=== PATIENT | female | born 1965 | race Caucasian/White ===

== ENCOUNTER 2016-09-27 16:47 | Inpatient (IN) | payer OTHER ==
[2016-09-27] VITALS (12 sets, daily range): BP systolic 69–96; BP diastolic 30–55; PULSE 64–117; RESP 18–28; O2SAT 90–98
[~2016-09-27] VITALS: Ht 154.9 cm; Wt 93.7 kg
[~2016-09-27 16:47] MED LIST: CHOL-4 PO; FURO-129 PO; GABA-502 PO; GLPZ5T PO; MAGN400T23 PO; METF500T4 PO; METO25TA6 PO; MORP-32 PO; OXYC1TAB24 PO; POTA20TA16 PO; SPIR25TA3 PO; VENL37.53 PO
--- NOTE | 2016-09-27 17:01 | ED.REPORT ---
HPI-General Illness Date of Service Sep 27, 2016 ED Provider: Rell Chow MD Pt is a 51 year old female currently being treated with chemotherapy for lung cancer who was sent to the ED from with concerns for an altered mental status and shortness of breath that started earlier today. Her reports that she has been having a productive cough for the past week as well as some rhinorrhea, which has been gradually worsening since its onset. Yesterday, she became excessively weak, confused and began having full body spasms. A pleural effusion was diagnosed while she was at the facility, which prompted her ED visit. She has become increasingly confused, and had one bout of emesis. Pt's denies any fevers, and reports that she did not receive a flu shot this season. Pt additionally has a previous history of breast cancer, treated with a partial mastectomy, and endometrial cancer, treated with a full hysterectomy. Nursing Notes Stated Complaint: COUGH/LOW OXYGEN Chief Complaint: Respiratory Complaints Nursing Notes Reviewed: Yes Allergies: Coded Allergies: No Known Allergies (Verified Allergy, Unknown, 09/27/16) Scheduled Cholecalciferol (Vitamin D3) (Vitamin D3) 10,000 Unit Capsule 5,000 UNIT PO WEEKLY Every Monday Furosemide (Lasix) 20 Mg Tablet 20 MG PO DAILY Gabapentin (Gabapentin) 300 Mg Capsule 300 MG PO TID 1 AM 1 NOON 2 PM Glipizide (Glipizide) 5 Mg Tablet 10 MG PO BID Magnesium Oxide (Mag-Oxide) 400 Mg Tablet 400 MG PO TID Metformin (Metformin) 500 Mg Tablet 500 MG PO TID Metoprolol Tartrate (Metoprolol Tartrate) 25 Mg Tablet 50 MG PO BID Morphine Sulfate ER (Morphine Sulfate ER) 15 Mg Tablet 15 MG PO BID Spironolactone (Spironolactone) 25 Mg Tablet 25 MG PO DAILY Venlafaxine ER (Effexor XR) 37.5 Mg Cap.er.24h 37.5 MG PO DAILY Scheduled PRN oxyCODONE-Acetaminophen 5-325 mg (oxyCODONE-Acetaminophen 5-325 mg) 1 Each Tablet 1 TAB PO Q4H PRN PRN For Pain General Time Seen by MD: 16:57 Chief Complaint Breathing problem Hx Obtained From: Patient, Spouse Arrived By: Walk-in Sudden in Onset?: Yes Onset Occurred: 1 week ago Symptom Duration: Since onset Similar Sx Previous: Yes Past Medical History Past Medical History type 2 diabetes and compensated cirrhosis of the liver, history of right-sided breast cancer in 2013 and recent diagnosis of metastatic high-grade endometrioid adenocarcinoma of uterus. She underwent cytoreductive surgery in October 2015 at [facility], and shortly afterwards in November 2015 she was diagnosed with recurrent/metastatic disease in para-aortic and aortocaval lymph nodes, left iliac chain lymph nodes, and new liver metastases. Past Surgical History LT BREAST BX X2,RT BR BX/LUMPECTOMY, breast reconstruction, FIBROID EXC.,HYST W/ DEBULKING ENDOMET Smoking History Never Smoker Ambulatory Status Independent Review of Systems Unable to Obtain ROS Patient condition Full Review of Systems Constitutional: Reports: Weakness - generalized, Denies: Chills, Fever, Malaise Respiratory: Reports: Non-productive cough, Prod cough, clear, Shortness of breath, Denies: Wheezing Cardiovascular: Denies: Syncope GI: Reports: Nausea, Vomiting, Denies: Diarrhea Female: Denies: Urinary frequency, Urinary urgency Skin: Denies Diaphoresis Neurologic: Reports: Confusion Complete sys rev & neg: except as marked. Physical Exam Vital Signs Vital Signs Date Time Temp Pulse Resp B/P Pulse Ox O2 Delivery O2 Flow Rate FiO2 09/27/16 19:39 77 19 77/30 97 09/27/16 19:33 64 24 98 Nasal Cannula 4 09/27/16 18:40 69 24 96/50 98 Nasal Cannula 3 09/27/16 16:52 35.9 117 28 71/54 90 Room Air Initial VS: Reviewed Head / Eyes: Atraumatic, Normocephalic, PERRL Neck: Supple, Non-tender, Full range of motion Cardiovascular: Regular rate & rhythm, Heart sounds normal, Intact distal pulses Abdomen / GI: Soft, Non-tender, No guarding, No rebound, No distention Skin: Warm, Dry, No cyanosis General/Constitutional: Awake, Alert Appearance / Presentation: Positive: Pale Port appears appropriate, no erythema or swelling present Appears altered Mumbling Follows commands Opens eyes spontaneously Respiratory / Chest: Atraumatic, No respiratory distress Corase breath sounds bilaterally Interpretation & Diagnostics Lab Results Interpretation Result Diagram: 09/27/16 1715 09/27/16 1715 Test 09/27/16 17:15 09/27/16 17:28 09/27/16 18:47 White Blood Count 15.1th/mm3 (3.8-10.1) Red Blood Count 3.86mil/mm3 (3.90-5.20) Hemoglobin 9.9g/dL (12.0-15.6) Hematocrit 31.5% (35.0-46.0) Mean Corpuscular Volume 81.6fL (81-100) Mean Corpuscular Hemoglobin 25.6pg (27.0-35.0) Mean Corpuscular Hemoglobin Concent 31.4% (32.0-37.0) Red Cell Distribution Width 17.0% (12.3-15.4) Platelet Count 252bil/L (150-400) Neutrophils (%) (Auto) 74% (40-74) Lymphocytes (%) (Auto) 6% (14-46) Monocytes (%) (Auto) 10% (4-12) Eosinophils (%) (Auto) 0% (0-5) Basophils (%) (Auto) 1% (0-3) Band Neutrophils % 7% (1-5) Metamyelocytes % 0% (0-0) Myelocytes % 2% (0-0) Sodium Level 129mEq/L (134-144) Potassium Level 3.3mEq/L (3.5-5.2) Chloride Level 88mEq/L (97-108) Carbon Dioxide Level 16mmol/L (18-29) Blood Urea Nitrogen 34mg/dL (6-24) Creatinine 1.62mg/dL (0.57-1.00) Estimat Glomerular Filtration Rate 48mL/min (>59) Glucose Level 378mg/dL (60-99) Lactic Acid Level 6.3mmol/L (0.4-2.0) Calcium Level 9.6mg/dL (8.5-10.1) Total Bilirubin 0.5mg/dL (0.0-1.2) Aspartate Amino Transf (AST/SGOT) 10U/L (0-50) Alanine Aminotransferase (ALT/SGPT) 8U/L (0-32) Alkaline Phosphatase 92U/L (25-150) Troponin T < 0.010ug/L (0.0-0.011) Pro-B-Type Natriuretic Peptide 1534pg/mL (0-249) Total Protein 7.4g/dL (6.4-8.4) Albumin 2.8g/dL (3.4-5.0) Prothrombin Time 13.4sec (8.1-12.5) Prothromb Time International Ratio 1.25ratio Activated Partial Thromboplast Time 35.5sec (22.8-33.0) D-Dimer 3.7mg/L (<0.50) Hold [place] Top Tube Received (Received) Urine Color Yellow (YELLOW) Urine Appearance Cloudy (CLEAR,HAZY) Urine pH 5.0 (5.0-8.0) Urine Specific Valentine 1.025 (1.003-1.035) Urine Protein Tracemg/dL (NEG,TRACE) Urine Glucose (UA) 250mg/dL (NEGATIVE) Urine Ketones Negativemg/dL (NEGATIVE) Urine Occult Blood Trace (NEGATIVE) Urine Nitrite Negative (NEGATIVE) Urine Bilirubin Negative (NEGATIVE) Urine Urobilinogen Normalmg/dL (NORMAL) Urine Leukocyte Esterase Negative (NEGATIVE) Urine RBC 3-10/hpf (0-2) Urine WBC 11-50/hpf (0-5) Urine Epithelial Cells Moderate/hpf (NONE-MOD) Urine Crystals Amorphous urates (NONE Urine Bacteria Moderate/hpf (NONE-FEW) Urine Hyaline Casts Rare/lpf (NONE) Urine Granular Casts None seen (NONE SEEN) Urine Waxy Casts None seen (NONE SEEN) Urine Red Blood Cell Casts None seen (NONE SEEN) Urine White Blood Cell Casts None seen (NONE SEEN) Urine Mucus Present (None Seen) Urine Trichomonas None seen (NONE SEEN) Urine Yeast None (NONE SEEN) Urinalysis Comment None Urine Culture Reflexed Indicated Lab Results Interpretation: Blood Gas Report: pH: 7.315 pCO2: 32 pO2: 68.7 pHCO3-: 15.9 cBase: -8.9 ECG Interpretation ECG Interpretation: SR - [address] segment changes Time: 17:23 X-Ray Chest Interpretation Chest Xray Interpretation: IMPRESSION: 1. Left mid lung and lower lobe, as well as right lower lobe pneumonia. 2. Suspect a hydropneumothorax in the left upper thorax, possibly related to empyema. Recommend clinical correlation. Dictated by: Dana Bird M.D. on 09/27/2016 at 18:57 Interpretation / Wet Read by: Interpret - Radiologist CT Head Interpretation IMPRESSION: No acute intracranial abnormality. Dictated by: Dana Bird M.D. on 09/27/2016 at 18:06 Interpretation / Wet Read by: Interpret - Radiologist Re-Eval/Medical Decision Med Decision/Clinical Course 51-year-old female history of uterine cancer status post radical hysterectomy with lung metastases on chemotherapy and history of breast cancer status post resection presenting with shortness of breath 2 weeks. On arrival she was satting in the high 80s and was altered. Lactate is 6.3. D-dimer is elevated at 3.[address] angiogram chest for PE one month ago. Sodium is low. Potassium is low. White blood cell count is 15,000 which is up from 5000 recently. Urine suggests UTI. Blood pressures with MAPs 60s. Patient will be admitted to [facility] for probable healthcare associated pneumonia with dose of Levaquin, Zosyn, vancomycin given prior to transfer. Blood culture sent. Patient is full code. Source of Hx: Old records Time of Eval: 17:42 Re-Evaluation/Progress Note: With oxygen administered, pt now has a GCS of 15. PERRL. Time of Eval: 18:40 Re-Evaluation/Progress Note: Pt is increasingly alert Consultation : Referral / Consult Name: Erasmo Mahajan MD Consulted With: Hospitalist Call Returned at: 19:23 Nuclear Medicine Officer: Will see patient, Agrees with plan, Accepts admit Counseled Regarding: Diagnosis, Lab results, Need for admission Discharge & Departure Primary Impression: Shortness of breath Additional Impressions: Healthcare-associated pneumonia UTI (urinary tract infection) Urinary tract infection type: site unspecified Hematuria presence: without hematuria Qualified Code: N39.0 - Urinary tract infection, site not specified Disposition: ADMITTED TO HOSPITAL Discharge Condition All VS Reviewed: Yes Condition: Stable Referrals: Rochelle Skelton (PCP) Dilciaibwellington Attestation Portions of this note were transcribed by Idalia Bobby. I, Dr. Chow personally performed the history, physical exam and medical decision-making; I reviewed and confirmed the accuracy of the information in the transcribed note. Signed by: Shannan Corrales, 09/27/2016 [id number] copies to: Rochelle Skelton Ben M MD Sep 27, 2016 17:01 CHARLY BOBBY Sep 27, 2016 17:12
[2016-09-27] MEDS ORDERED: 0.9% Sodium Chloride 1,000 ML IV ONE ×2 (17:09→17:55)
[2016-09-27] MEDS ORDERED: Albuterol 2.5 mg/3 mL Inhalation Solution NEB ONE (17:10)
--- NOTE | 2016-09-27 17:16 | ABG ---
DateTimeAnalyzed 17:12:00 -_ pH ____7.315 - 7.350 7.450 pCO2 ___32.2__ -mmHg 35.0 45.0 pO2 ___68.7__ -mmHg 69.0 116 HCO3- ___15.9__ -mmol/L 22.0 26.0 ABE ___-8.9__ -mmol/L -2.0 2.0 tHb ___10.2__ -g/dL O2Hb ___90.6__ -% COHb ____1.7__ -% MetHb ____0.7__ -% sO2 ___92.8__ -% FIO2 ___26.0__ -% Drawn By JJ - Date/Time Notified____ 17:16:00 -_ Liter_Flow ____2.0__ -L/min Oxygen Device 1 __CANNULA - Notified By JJ - Notified Whom DR CASSI-CANSECO -____ B 765 -mmHg tO2 ___13.1__ -Vol% Chavo test _Positive -
[2016-09-27 17:30] LABS: Mean Corpuscular Hemoglobin 25.6 pg (27.0-35.0); Mean Corpuscular Volume 81.6 fL (81-100); Platelet Count 252 bil/L (150-400)
--- NOTE | 2016-09-27 18:08 | DRSVH ---
PROCEDURE: CT BRAIN WITHOUT CONTRAST ([id number]) INDICATIONS: altered mental status TECHNIQUE: Noncontrast 4.5 mm thick angled axial sections acquired from the foramen magnum to the vertex, with c oronal reformats. COMPARISON: None. FINDINGS: Image quality: Excellent. CSF spaces: Basal cisterns are patent. No extra-axial fluid collections. Ventricles are normal in size and shape. Brain: No midline shift. No intracranial masses or hemorrhage. Alcazar-white matter interface is norm al. Skull and face: Calvarium and visualized facial bones are intact, without suspicious lesions. Sinuses: Visualized sinuses and mastoids are clear. IMPRESSION: No acute intracranial abnormality. Dictated by: Dana Bird M.D. on 09/27/2016 at 18:06 Approved by: Dana Bird M.D. on 09/27/2016 at 18:06
[2016-09-27 18:12] LABS: TROPONIN T < 0.010 ug/L (0.0-0.011)
[2016-09-27 18:15] LABS: D-DIMER 3.7 mg/L (<0.50); INR 1.25 ratio
--- NOTE | 2016-09-27 18:59 | DRSVH ---
PROCEDURE: X-RAY CHEST ONE VIEW, PORTABLE ([id number]) INDICATIONS: dyspnea TECHNIQUE: One view of the chest was acquired. COMPARISON: [facility], CT, CT ABD PELVIS W CON, 08/28/2016, 10:13. [facility], CR, CHEST 2VW, 09/27/2016, 4:49 PM. [facility], CR, XR CHEST 1VW (PORTABLE), 08/28/2016, 18: 49. FINDINGS: Surgical changes and devices: There is a Port-A-Cath on the right with the tip crossing midline to th e left but unchanged in position. Lungs and pleura: There is a small moderate left pleural effusion. There is a lucency in the left upp er thorax, probably a hydropneumothorax. There is infiltrate and consolidation in left mid lung and l ower lobe, as well as right lower lobe consistent with pneumonia. Pulmonary vascularity is increased. Mediastinum: Mediastinal contours appear normal. Heart size is normal. Bones and chest wall: No suspicious bony lesions. Overlying soft tissues appear unremarkable. IMPRESSION: 1. Left mid lung and lower lobe, as well as right lower lobe pneumonia. 2. Suspect a hydropneumothorax in the left upper thorax, possibly related to empyema. Recommend clini tyree correlation. Dictated by: Dana Bird M.D. on 09/27/2016 at 18:57 Approved by: Dana Bird M.D. on 09/27/2016 at 18:57
[2016-09-27] MEDS ORDERED: Vancomycin Dose per Pharmacist XX ONE (19:00)
[2016-09-27] MEDS ORDERED: Piperacillin-Tazo 3.375 Gm Inj 3.375 GM in Dextrose 5% Minibag Plus 50 ML IV ONE (19:00)
[2016-09-27] MEDS ORDERED: levoFLOXacin Inj 750 MG in IV Premix 1 EACH IV ONE (19:00)
[2016-09-27] MEDS ORDERED: Alum-Mag Hydrox-Simeth 30 mL Suspension PO PRN (19:05)
--- NOTE | 2016-09-27 19:05 | PCM.HPMED ---
Subjective Date of Service Sep 27, 2016 Primary Provider: Admitting Physician: Primary Care Physician: Rochelle Skelton Attending Physician: Chief Complaint: Altered mental status and shortness of breath History of Present Illness: Pt is a 51 year old female currently being treated with chemotherapy for lung cancer who was sent to the ED from with concerns for an altered mental status and shortness of breath that started earlier today. Her reports that she has been having a productive cough for the past week as well as some rhinorrhea, which has been gradually worsening since its onset. Yesterday, she became excessively weak, confused and began having full body spasms. A pleural effusion was diagnosed while she was at the facility, which prompted her ED visit. She has become increasingly confused, and had one bout of emesis. Pt's denies any fevers, and reports that she did not receive a flu shot this season. Review of Systems: Gen.: No fevers chills weight loss weight gain, generalized malaise Eyes: no visual disturbances or blurring vision HEENT: No nose/throat drainage, no pain in ears or throat, no hearing loss Lymph: No lymph nodes noted Cardiac: No chest pain, orthopnea, PND, palpitations , pedal edema or dyspnea on exertion Pulmonary: , severe cough, some dyspnea and wheezing and sputum GI: No nausea vomiting blood or black in the stool, anorexia : no dysuria hematuria urinary frequency or decrease in urine output Musculoskeletal: Joint swelling no joint pain no new muscle aches or back pain Neuro: No syncope, seizures no loss of consciousness no new focal weakness, numbness or tingling Psychiatric: New new anxiety insomnia or depression Endocrine: No new heat or cold intolerances polyuria or polydipsia Hematology: No lymphadenopathy or easy bleeding or bruising noted skin: No new rashes, stasis dermatitis Allergies Coded Allergies: No Known Allergies (Verified Allergy, Unknown, 09/27/16) Home Medications Scheduled Cholecalciferol (Vitamin D3) (Vitamin D3) 10,000 Unit Capsule 5,000 UNIT PO WEEKLY Every Monday Furosemide (Lasix) 20 Mg Tablet 20 MG PO DAILY Gabapentin (Gabapentin) 300 Mg Capsule 300 MG PO TID 1 AM 1 NOON 2 PM Glipizide (Glipizide) 5 Mg Tablet 10 MG PO BID Magnesium Oxide (Mag-Oxide) 400 Mg Tablet 400 MG PO TID Metformin (Metformin) 500 Mg Tablet 500 MG PO TID Metoprolol Tartrate (Metoprolol Tartrate) 25 Mg Tablet 50 MG PO BID Morphine Sulfate ER (Morphine Sulfate ER) 15 Mg Tablet 15 MG PO BID Spironolactone (Spironolactone) 25 Mg Tablet 25 MG PO DAILY Venlafaxine ER (Effexor XR) 37.5 Mg Cap.er.24h 37.5 MG PO DAILY PMH Metastatic, high-grade adenocarcinoma of the uterus stage IV, status post cytoreductive surgery and prior chemotherapy, persistent and currently on bevacizumab monotherapy * Liver and pulmonary metastases History of resected stage IIIa, ER positive, HER-2 negative, right-sided breast cancer, without recurrence. Initially diagnosed 2012 * Status post chemotherapy, right partial mastectomy/axillary lymphadenectomy, radiotherapy Cirrhosis of the liver secondary to fatty infiltration, fully compensated Diabetes type II not on insulin Surgical History Right-sided PowerPort placement in November 2015 Right-sided partial mastectomy and axillary lymphadenectomy in 2012 Right-sided breast reconstruction and then an additional revision, and left breast reduction surgeries in 2014 VICTORIA/BSO, partial omentectomy, bilateral pelvic lymphadenectomy, rectosigmoid resection with end-to-end anastomosis and bladder peritonectomy. 10/2015 Family History Father had heart disease and hypertension Mother had diabetes and hypertension Social History Hx Alcohol Use: Yes (only very occasionally. Rather remote history of heavier use.) Hx Substance Use: No Hx Tobacco Use: No Smoking Status: Never Smoker Living Arrangement: with Family Additional Information Lives locally with . Social History Hx Alcohol Use: Yes (only very occasionally. Rather remote history of heavier use.) Hx Substance Use: No Hx Tobacco Use: No Smoking Status: Never Smoker Exam Vital Signs Vital Sign - Last Date Time Temp Pulse Resp B/P Pulse Ox O2 Delivery O2 Flow Rate FiO2 09/27/16 16:52 35.9 117 28 71/54 90 Room Air Exam Gen.- A+ O 3 no apparent distress. Obese female lying in bed Eyes- open conjunctiva clear, pupils equal nonicteric ENT- ears normal, nose normal Mouth: Oral mucosa unremarkable Neck- supple/trach midline CVS- RRR no murmur or gallop edema consistent with body habitus Lungs CTA, respirations regular no accessory muscles or evidence of respiratory distress GI- NABS/NT soft Musc- moving 4 no obvious deformity Neuro- cranial nerves II through XII intact to gross examination, nonfocal Skin- warm and dry Psych- pleasant and appropriate, Port-A-Cath noted on the right side of her chest Lab and Diagnostics Labs ua clr lfts wnl lactate 6.3 bnp 1534 Trop<0.010 influenza (-) Result Diagram: 09/27/16 1715 X-Rays, CTs and MRIs CT head no acute intracranial abnormality CXR 1. Left mid lung and lower lobe, as well as right lower lobe pneumonia. 2. Suspect a hydropneumothorax in the left upper thorax, possibly related to empyema. Recommend clinical correlation. 12-lead ECG Sinus rhythm rate 84 QTC 518 ms personally reviewed by me Assessment & Plan 51-year-old cancer patient with uterine CA and lung metastases with probable empyema presents with sepsis. She has been started on vancomycin, Levaquin, Zosyn in the ER I will downgrade her to Zosyn alone I think this is coverage for an empyema as we discover some of the drug resistant organisms. CT scan of the chest is being ordered to assess whether patient will need thoracentesis were drained. Sepsis- secondary to pneumonia and empyema. IV fluids and Zosyn Metabolic encephalopathy-patient seemed relatively clear when I met her however her was not there to verify. HCAP/probable empyema- vanco. levo, zosyn lactate 6.0, getting CT of the chest to further evaluate may need test tubes tomorrow 09/28. Continuing Zosyn only hypotension-patient is gotten 3 L of fluids in the emergency room MOO-probably due to sepsis, dehydration follow-up labs in the morning hyponatremia-probably due to sepsis, dehydration follow-up labs in the morning Anemia-probably of chronic disease and it will be delusional follow-up labs in the morning along with iron studies NIDDM put patient on- Low-dose replacement and she can take her by mouth meds if she is taking by mouth well and blood sugar could not Hx uterine CA w/ lung mets Prophylaxis-DVT patient needs aggressive she is high risk she needs both SCDs and heparin, GI will give PPI given the anemia Disposition-patient is full code from home Erasmo Mahajan MD Sep 27, 2016 19:05
[2016-09-27] MEDS ORDERED: Vancomycin Inj 1,000 MG in IV Premix 1 EACH IV ONE (19:10)
[2016-09-27 19:18] LABS: NEUTROPHILS % (AUTO) 74 % (40-74)
[2016-09-27 19:21] LABS: BASOPHILS % (AUTO) 1 % (0-3); EOSINOPHILS % (AUTO) 0 % (0-5); MONOCYTES % (AUTO) 10 % (4-12)
[2016-09-27 20:03] LABS: APPEARANCE,URINE CLOUDY (CLEAR,HAZY); COLOR,URINE YELLOW (YELLOW); OCCULT BLOOD,URINE TRACE (NEGATIVE); UROBILINOGEN,URINE NORMAL (NORMAL)
[2016-09-27] MEDS: Ondansetron 2 mg/mL 2 mL Inj IVPUSH PRN (22:17)
[2016-09-27] MEDS ORDERED: 0.9% Sodium Chloride 250 ML ONE (22:18)
[2016-09-27] MEDS ORDERED: MORP-32 PO (22:50)
[2016-09-27] MEDS ORDERED: 0.9% Sodium Chloride 1,000 ML IV SCH (22:58)
[2016-09-27] MEDS ORDERED: Polyethylene Glycol (PEG) 17 Gm Powder PO PRN (23:00)
[2016-09-27] MEDS ORDERED: HYDROcodone-APAP 5-325 mg Tablet PO PRN (23:00)
--- NOTE | 2016-09-27 23:08 | NUR ---
Admit Note Pt oriented to self and place. Forgetful of date. She follows commands. was at bedside and able to provide H&P and update Med Rec. Pt oriented to use of call light, room and fall precautions.
[2016-09-27] MEDS ORDERED: Glucose 40% Oral Gel 15 Gm Tube PO PRN (23:10)
[2016-09-27] MEDS ORDERED: oxyCODONE-Acetamin 5-325 mg Tablet PO PRN (23:10)
[2016-09-27] MEDS ORDERED: Codeine-guaiFENesin 10 mL Syrup PO PRN (23:35)
[2016-09-27] MEDS: Morphine ER 15 mg (MS Contin) Tablet PO SCH (23:45)
[2016-09-28] VITALS (17 sets, daily range): BP systolic 77–134; BP diastolic 48–77; PULSE 79–114; RESP 18–39; O2SAT 83–100
[2016-09-28] MEDS: Insulin LISPRO 300 Unit/3 mL Inj SUBQ SCH ×6 (00:23→22:07)
[2016-09-28] MEDS ORDERED: 0.9% Sodium Chloride 1,000 ML IV ONE (00:55)
[2016-09-28] MEDS: 0.9% Sodium Chloride 1,000 ML IV SCH ×4 (02:24→22:10)
[2016-09-28] MEDS ORDERED: Insulin LISPRO 300 Unit/3 mL Inj SUBQ ONE (02:54)
[2016-09-28] MEDS: Morphine ER 15 mg (MS Contin) Tablet PO SCH ×3 (04:49→19:56)
[2016-09-28 05:11] LABS: BASOPHILS % (AUTO) 0.1 % (0-3); EOSINOPHILS % (AUTO) 0 % (0-5); MONOCYTES % (AUTO) 12.8 % (4-12); Mean Corpuscular Hemoglobin 25.5 pg (27.0-35.0); Mean Corpuscular Volume 83.5 fL (81-100); NEUTROPHILS % (AUTO) 80.4 % (40-74); Platelet Count 140 bil/L (150-400)
[2016-09-28 05:29] LABS: Unsaturated Iron Binding 118.7 ug/dL
--- NOTE | 2016-09-28 05:32 | NUR ---
02sat/Coughing Pt started coughing persistently. LS crackles throughout L>R. 02sat in 70s on 3L NC. Placed patient on 18 L Non-rebreather with 02sat 90%. Patient coughing large amount of red tinged, yellow sputum. Md called and came down to assess patient. 2nd floor geography instructor and RT called. Stat portable CXR ordered. Report given to YASIR. Pt transferred to room 2018 with chart and meds. made aware of HGB 6.2 Addendum: 09/28/16 at 0539 by CRISTINO BHAKTA RN Low BP Pt has been hypotensive since admission. Pt oriented to self and place. She awakens easily but c/o generalized weakness. aware of hypotension and order for IV bolus. Addendum: 09/28/16 at 0550 by CRISTINO BHAKTA RN called and made aware need to move to Rm 2018.
--- NOTE | 2016-09-28 05:42 | NUR ---
Pt transferred from [facility] with difficulty breathing. Large empyema found on CT. Pt on a NRB with sats at 93%. Awaiting surgeon arrival for chest tube placement.
[2016-09-28] MEDS ORDERED: fentaNYL-PF 50 mCg/mL 2 mL Inj ONE (05:48)
[2016-09-28] MEDS ORDERED: Lidocaine 2%-Epi 1:100,000 20 mL Inj INFILTRATE ONE (05:55)
--- NOTE | 2016-09-28 07:19 | OP ---
[address] [address] OPERATIVE REPORT PATIENT: ORLY GARCIA : 1965 MR#: [id number] ADMIT: 09/27/2016 JOB ID: [id number] DATE OF SURGERY: 09/28/2016 PREOPERATIVE DIAGNOSIS(ES): Left empyema. POSTOPERATIVE DIAGNOSIS(ES): Left empyema. PROCEDURE: Left tube thoracostomy. SURGEON: Alistair Davenport MD. INDICATIONS: A 51-year-old woman being treated for stage IV uterine cancer who presents with a left-sided empyema. I am asked to place a chest tube urgently for symptomatic relief. FINDINGS: Chest tube placed without complication. However the empyema was not drained. Please see below. DESCRIPTION OF PROCEDURE: The patient is in the intensive care unit. Informed consent had been obtained. The left chest area was prepped and draped in a sterile fashion. I confirmed that we were on the correct side. I instilled local anesthetic. I made an incision just above the inframammary crease and dissected down to the rib cage. The patient received 25 mcg of intravenous fentanyl as well as 20 cc of 1% lidocaine for local anesthesia. I entered above the rib and entered into it. It was clearly the pleural space with good respiratory variation. I could palpate the lung and feel the cardiac pulsation. However, although I was certain I was in the pleural space, I did not receive any significant pleural fluid. I got my finger into the pleural space and cleared it off as best I could, trying to break up any loculations. I was as aggressive with my fingers I felt was safe but was not able to enter any clear empyema. I placed a 40-Italian chest tube posterior and superiorly towards the apex in the pleural space as best I could, but again did not penetrate any loculated fluid collections. The chest tube was placed to suction. This chest tube was secured and dressed. At this point, I am awaiting a followup x-ray. Decision will be made as to whether patient will require a second bedside chest tube, chest tube via Interventional Radiology or a VATS procedure.
--- NOTE | 2016-09-28 07:32 | CONS ---
[address] [address] CONSULTATION REPORT PATIENT: ORLY GARCIA : 1965 MR#: [id number] ADMIT: 09/27/2016 JOB ID: [id number] DATE OF SERVICE: REASON FOR CONSULTATION: Dr. Borden has asked me to see this patient urgently to place a left chest tube for empyema. HISTORY OF PRESENT ILLNESS: The patient is under the care of Dr. Borden for stage IV uterine cancer, presented with altered mental status and shortness of breath, with one week of productive cough and rhinorrhea. Productive cough is malodorous. She is extremely short of breath, and a CT scan has demonstrated what appears to be loculated large left empyema. I am asked to place a left chest tube for symptomatic relief. PAST MEDICAL HISTORY: Right-sided breast cancer, status post hysterectomy with debulking for her endometrial cancer, diabetes, history of right-sided Power Port, history of right-sided partial mastectomy and breast reconstruction. SOCIAL HISTORY: Negative tobacco. Negative daily alcohol. FAMILY HISTORY/REVIEW OF SYSTEMS: Noncontributory. PHYSICAL EXAMINATION: Vital signs recorded in the chart. She appears short of breath on high-flow nasal cannula. Her mental status is oriented to person, place, and she is able to give informed consent. Breath sounds are present on both sides. I reviewed her chest x-ray and her chest CT, and there does appear to be a very large football size extrapleural fluid collection with a large air-fluid level in it consistent with a loculated empyema. LABORATORY DATA: White count is 15, hematocrit is 31. Coags show an INR of 1.25. IMPRESSION/PLAN: Left-sided empyema. I will place a large left chest tube for symptomatic relief. I have discussed this with the patient. She agrees to proceed.
[2016-09-28] MEDS: Potassium Chloride 20 mEq SR Tablet PO SCH (08:00)
--- NOTE | 2016-09-28 08:11 | DRSVH ---
PROCEDURE: X-RAY CHEST ONE VIEW, PORTABLE ([id number]) INDICATIONS: 51 year-old female with shortness of breath. TECHNIQUE: One view of the chest was acquired. COMPARISON: [facility], CT, CT ANGIO CHEST PE, 08/25/2016, 1:29. [facility] , CR, XR CHEST 1VW (PORTABLE), 09/27/2016, 17:31. [facility], CR, CHEST 2VW, 09/27/2016, 4:49 PM. [facility], CR, XR CHEST 1VW (PORTABLE), 08/28/2016, 18:49. FINDINGS: Surgical changes and devices: Right chest wall Port-A-Cath is again noted. Lungs and pleura: Large thick walled cavitary lesion is again noted within the lateral left midlung, with dependent air-fluid level. Lung volumes are decreased, with patchy bibasilar airspace opacities. Mediastinum: Mediastinal contours appear normal. Heart size is normal. Bones and chest wall: No suspicious bony lesions. Overlying soft tissues appear unremarkable. IMPRESSION: 1. Large thick walled cavitary lesion is again noted within the lateral left mid thorax, at the spot of previously noted mass lesion on chest CT. Differential diagnoses would include a necrotic metastas is and/or pulmonary abscess. 2. Decreased lung volumes, with persistent bibasilar atelectasis versus bronchopneumonia. Dictated by: Mati Ferrer M.D. on 09/28/2016 at 8:09 Approved by: Mati Ferrer M.D. on 09/28/2016 at 8:09
--- NOTE | 2016-09-28 08:14 | DRSVH ---
PROCEDURE: X-RAY CHEST ONE VIEW, PORTABLE ([id number]) INDICATIONS: 51 year-old female with chest tube placement. TECHNIQUE: One view of the chest was acquired. COMPARISON: [facility], CR, XR CHEST 1VW (PORTABLE), 09/28/2016, 5:24. [facility], CR, XR CHEST 1VW (PORTABLE), 09/27/2016, 17:31. [facility], CR, CHEST 2VW, 09/27/2016, 4:49 PM. FINDINGS: Surgical changes and devices: Right chest wall Port-A-Cath is again noted. There is new inferior left thoracic pleural drain, with tip in expected position. Lungs and pleura: Large thick-walled cavitary lesion is again noted within the lateral left thorax, w ith interval decreased amount of dependent fluid. Lung volumes remain decreased, with increased bibas ilar airspace opacities. Mediastinum: Mediastinal contours appear normal. Heart size is normal. Bones and chest wall: No suspicious bony lesions. Overlying soft tissues appear unremarkable. IMPRESSION: 1. Interval placement of inferior left chest tube, with resultant decreased amount of dependent fluid within the thick-walled left lateral thoracic cavitary lesion. 2. Interval increased bibasilar atelectasis, aspiration, or bronchopneumonia. Dictated by: Mati Ferrer M.D. on 09/28/2016 at 8:12 Approved by: Mati Ferrer M.D. on 09/28/2016 at 8:12
--- NOTE | 2016-09-28 08:16 | PCM.PNMED ---
Subjective Date of Service Sep 28, 2016 Subjective Patient is listless. She has denies much pain from her left chest tube thoracostomy. She denies recent fevers or chills. She does feel quite weak. No chest pain. Some nausea. No abdominal pain. No recent bowel movements. Exam Vital Signs Vital Sign - Last Date Time Temp Pulse Resp B/P Pulse Ox O2 Delivery O2 Flow Rate FiO2 09/28/16 05:41 80 26 93 Nasal Cannula 80 100 09/28/16 05:02 36.2 134/77 Intake and Output 09/27/16 09/27/16 09/28/16 Cumulative From/Thru 15:00 23:00 07:00 09/27/16 16:52 - 09/28/16 05:52 Intake Total 3000 ml 1506 ml 4506 ml Output Total 1050 ml 1050 ml Balance 3000 ml 456 ml 3456 ml Intake Oral 0 ml 0 ml IV Total 3000 ml 1506 ml 4506 ml Output Urine Total 1050 ml 1050 ml Exam Alert oriented, listless. Slow to speak. Extremely pale. Anicteric sclera. Neck is supple Lungs are clear with diminished inspiration effort Heart is regular without murmur gallop or rub Abdomen is soft nontender. Extremities are free of edema with good pedal pulses. IVs and Medications Medications Reviewed: Medications were reviewed in detail Lab and Diagnostics Result Diagram: 09/28/16 0500 09/28/16 0500 X-Rays, CTs and MRIs CT head no acute intracranial abnormality CXR 1. Left mid lung and lower lobe, as well as right lower lobe pneumonia. 2. Suspect a hydropneumothorax in the left upper thorax, possibly related to empyema. Recommend clinical correlation. 12-lead ECG Sinus rhythm rate 84 QTC 518 ms personally reviewed by me Assessment & Plan 51-year-old cancer patient with uterine CA and lung metastases with probable empyema presents with sepsis. She has been started on vancomycin, Levaquin, Zosyn in the ER I will downgrade her to Zosyn alone I think this is coverage for an empyema as we discover some of the drug resistant organisms. CT scan of the chest is being ordered to assess whether patient will need thoracentesis were drained. 1. Sepsis, POA - secondary to possible pneumonia or lung abscess.. IV fluids and Zosyn 2. Left lung cavitary lesion. POA Patient had a chest tube placed on the left side by surgery today. There is good exploration of the pleural space and there was no fluid in the pleural space and no drainage from the tube. Recommend consideration of a percutaneous drain, CT-guided by interventional radiology. 3. Metabolic encephalopathy-patient seemed relatively clear when I met her however her was not there to verify. 4., Hypertension, POA multifactorial likely a function of volume depletion and sepsis. The patient also has relative anemia without clinical evidence of acute blood loss. This is improved with fluid resuscitation. Her hematocrit is 20 she will be getting 2 units of packed red blood cells this morning. 5. Acute anemia with hematocrit drop of 30-20. No obvious GI blood loss. Discussed blood transfusion with patient and patient's family will pursue teens packed red blood cells and a hemolysis workup. 6. MOO POA.-We will fluid resuscitate for volume depletion and follow renal indices 7. Blind depletion versus SIADH. Will follow with saline repletion. 8. Diabetes mellitus 2, POA T6 hour Accu-Cheks of tractional lispro. Prophylaxis-DVT patient needs aggressive she is high risk she needs both SCDs and heparin, GI will give PPI given the anemia Disposition-patient is. We will request a palliative care consult today. The patient is terminal and in acute decompensation but continues to be full resuscitation. Pain Evaluation: Adequate Pain Control VTE Mechanical Devices: Intermittant Pneumatic CD Time spent 30 minutes Chavo Lacey MD Sep 28, 2016 08:16
[2016-09-28] MEDS: 0.9% Sodium Chloride 250 ML IV SCH ×2 (08:20→11:11)
[2016-09-28] MEDS ORDERED: Insulin GLARgine 100 Unit/mL Syringe SUBQ ONE (08:25)
[2016-09-28] MEDS: Venlafaxine XR 37.5 mg ER24 Capsule PO SCH (08:30)
[2016-09-28] MEDS ORDERED: Piperacillin-Tazo 3.375 Gm Inj 3.375 GM in Dextrose 5% Minibag Plus 50 ML IV SCH (08:30)
--- NOTE | 2016-09-28 08:49 | DRSVH ---
PROCEDURE: CT CHEST WITHOUT CONTRAST ([id number]) INDICATIONS: eval hydropneumothorax seen on CXR TECHNIQUE: Noncontrast 5 mm thick sections acquired from the pulmonary apices to the posterior costophrenic angl es. 7 mm thick coronal and sagittal MIP reformats were then acquired. For radiation dose reduction, the following was used: automated exposure control, adjustment of mA and/or kV according to patient size. COMPARISON: [facility], CR, XR CHEST 1VW (PORTABLE), 09/27/2016, 17:31. [facility], CR, XR CHEST 1VW (PORTABLE), 08/28/2016, 18:49. [facility], CT, CT ANGIO CHEST P E, 08/25/2016, 1:29. [facility], CR, CHEST 2VW, 09/27/2016, 4:49 PM. [facility], CR, XR CHEST 1VW (PORTABLE), 09/28/2016, 7:07. [facility], CR, XR CHEST 1VW (PORTABLE), 09/28, 5:24. FINDINGS: Image quality: Excellent. Lungs and pleura: There is a large thick-walled cavity in the left lateral upper thorax, probably wi thin the pleural space, measuring 9.4 cm anteroposterior, 6.8 cm transverse and 11.6 cm cephalocaudal . There is an air-fluid level within the cavity. This is most likely an empyema or lung abscess. Ther e are bilateral nodular infiltrates, predominantly involving lower lobes, but also involve the right upper lobe and right middle lobe. There is left basilar consolidation and small left pleural effusion . Central and peripheral airways are patent and normal in caliber. Mediastinum: Heart size is normal. No pericardial effusion. No mediastinal adenopathy by size crit eria. Thoracic aorta and central pulmonary arteries are normal in size. Esophagus is normal in antony segundo. No hiatal hernia. Bones and chest wall: No suspicious bony lesions. No vertebral body compression fractures. No axil nichole or supraclavicular adenopathy by size criteria. Thyroid gland is unremarkable. Abdomen: Spleen is enlarged. Nodular contour of liver suggesting cirrhosis. There are multiple galls tones. Visualized upper abdominal solid organs and bowel loops appear normal in the absence of contra st. IMPRESSION: 1. A large thick-walled cavity in the lateral aspect of the left upper thorax with an air-fluid level consistent with an empyema or abscess. 2. Bilateral nodular infiltrates predominantly involving lower lobes. There is left basilar consolida tion and small left effusion. The CT findings are most likely caused by an infectious process includi ng atypical infections such as fungal or mycobacterial pneumonia. A differential diagnosis is lymphan gitic carcinomatosis. 3. Cirrhotic liver. 4. Splenomegaly. This finding may be secondary to portal hypertension. 5. Cholelithiasis. No significant discrepancy with the third shift lieutenant radiology preliminary report. Dictated by: Dana Bird M.D. on 09/28/2016 at 8:47 Approved by: Dana Bird M.D. on 09/28/2016 at 8:47
--- NOTE | 2016-09-28 09:18 | NUR ---
Social Work Note: Screen Note Data& Assessment: EMR reviewed. Chapis Eddy is 51 year old female admitted on 09/27/2016 for pneumonia and SOB. Pt has [employer] out of state insurance coverage and sees SMILEY Davila for primary care. Pt is also being followed by oncology in the community and is a chemotherapy pt for her lung cancer diagnosis. SW left a message for oncology CM notifying her of pt hospitalization. Pt lives in [place] with her and is independent at baseline. SW to continue to follow. Plan: Anticipated discharge home via POV when medically ready. SW to continue to follow for needs and check in with pt regarding discharge planning when appropriate. JOMAR Macias
--- NOTE | 2016-09-28 09:43 | ABG ---
DateTimeAnalyzed 09:39:00 -_ pH ____7.311 - 7.350 7.450 pCO2 ___38.2__ -mmHg 35.0 45.0 pO2 110 -mmHg 69.0 116 HCO3- ___18.7__ -mmol/L 22.0 26.0 ABE ___-6.4__ -mmol/L -2.0 2.0 tHb ____8.4__ -g/dL O2Hb ___96.5__ -% COHb ____1.4__ -% MetHb ____0.6__ -% sO2 ___98.5__ -% FIO2 __100.0__ -% Drawn By gj - Date/Time Notified____ 09:43:00 -_ Liter_Flow ___80.0__ -L/min Oxygen Device 1 HIGH FLOW - Notified By gj - Notified Whom __JOHNSON - B 764 -mmHg tO2 ___11.6__ -Vol% Chavo test _Positive -
[2016-09-28 10:19] LABS: APPEARANCE,URINE HAZY (CLEAR,HAZY); COLOR,URINE YELLOW (YELLOW); OCCULT BLOOD,URINE TRACE (NEGATIVE); PH,URINE 5.5 (5.0-8.0); UROBILINOGEN,URINE NORMAL (NORMAL)
[2016-09-28] MEDS ORDERED: Meropenem Inj 1,000 MG in IV Premix 1 EACH IV ONE (10:45)
[2016-09-28] MEDS ORDERED: Sodium Chloride LOK Flush 10 mL Syringe IVFLUSH PRN ×2 (11:15)
[2016-09-28] MEDS ORDERED: HepLOK Flush 100 unit/mL 5 mL Inj IVFLUSH PRN (11:15)
[2016-09-28] MEDS: SODIUM CHLORIDE 0.9% IV SCH ×2 (11:20→23:16)
[2016-09-28] MEDS: VORICONAZOLE IV SCH ×2 (11:20→23:16)
[2016-09-28] MEDS ORDERED: 0.9% Sodium Chloride 500 ML ONE (11:41)
[2016-09-28 12:15] LABS: BASOPHILS % (AUTO) 0 % (0-3); EOSINOPHILS % (AUTO) 0 % (0-5); Mean Corpuscular Hemoglobin 25.7 pg (27.0-35.0); Mean Corpuscular Volume 82.6 fL (81-100); Platelet Count 120 bil/L (150-400)
--- NOTE | 2016-09-28 12:39 | NUR ---
Palliative Care Palliative Care received verbal order from Dr Bautista 09/28/16 to assist with goals of care. Patient is a 51 year old woman with metastatic uterine cancer. She was admitted 09/27/16 and is receiving care for new lung mass, empyema and pneumonia. Palliative Care MD saw patient during 08/2016 admission. Patient lives at home with . Guillermo Eddy () [phone] Palliative Care to follow. Cira Lee
[2016-09-28 12:40] LABS: MONOCYTES % (AUTO) 16 % (4-12); NEUTROPHILS % (AUTO) 68 % (40-74)
--- NOTE | 2016-09-28 13:49 | CONS ---
[address] [address] CONSULTATION REPORT PATIENT: ORLY GARCIA : 1965 MR#: [id number] ADMIT: 09/27/2016 JOB ID: [id number] DATE OF SERVICE: 09/28/2016 PULMONARY CRITICAL CARE CONSULTATION: REFERRING PHYSICIAN: Chavo Lacey MD REASON FOR CONSULTATION: Cavitating lung mass. HISTORY OF PRESENT ILLNESS: The patient is a 51-year-old female admitted yesterday because of confusion and weakness. Also had somewhat rhythmic spasms of her arms when she was trying to utilize them, especially with abduction of her arms. The patient is able to give very few details. Most of the information obtained from her . He described a productive cough for the past week as well as some nasal congestion continuing to worsen. She states that sputum was ever rather thick, pink on occasion, brown on other occasions, but is rather unable to give us many details. Cannot comment about her breathing. Having significant pain which has been a problem for her. Especially having problem in the left chest, but also knees and other joints, the latter being chronic, the chest pain on the left being subacute, going on for maybe a month or so. The patient has a was born in [place]. She moved to [place] (site unknown) for a short period of time before locating in [place]. She has remained in [place] her entire life. TRAVEL: [place], [place], and [place]. In the spring of this year she visited [place]. Also visited family in [place]. Last was in [place] about seven years ago. EXPOSURES: No hobbies which expose her to dust, fumes, or solvents. PETS: Four cats. None sick. has not noted any rat droppings around their mobile home. WORK HISTORY: The patient was a golf manager in fast food establishments. PAST MEDICAL HISTORY: Taken from the chart. The patient suffers from type 2 diabetes and cirrhosis of the liver. Cirrhosis sounds like it was from chemotherapy. In any case, she was treated for right-sided locally advanced breast cancer in 2012. 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 Underwent surgery in October 2015 and subsequently one month later diagnosed with progressive metastatic disease to the liver treated with Taxol chemotherapy with good response. However, there was still residual disease and she was started on maintenance Avastin infusions. In late July she developed left upper back pain that was somewhat pleuritic in nature. Presented in severe pain and a CT angiogram showed an enlarging mass in the left upper lobe consistent with metastatic disease and invasion of the parietal pleura and intercostal musculature with pleural carcinomatosis extending inferiorly. Blood cultures were negative. Urine culture grew E. coli, pansensitive. She had progression of metastatic high-grade uterine carcinoma. In early August chemotherapy was changed from carboplatin with weekly paclitaxel and bevacizumab to Doxil. She received one dose in early August, specifically September 02, and apparently tolerated it reasonably well. REVIEW OF SYSTEMS: Unable to obtain. The patient is somewhat lethargic, nods off easily, and is unable to provide much information. Much of the information obtained from the patient's . She has not had an increase in her severe joint pain nor her back pain particularly. Major problems were her confusion and to some extent increasing lethargy. FAMILY HISTORY: Unable. OBJECTIVE: Temperature 36.2 with T-max being 36.4, pulse 80-93, respiratory rate 26-30, blood pressure varies between 134/77 to 89/55. O2 sat on high-flow oxygen at an FiO2 of 1.0 with flow of 80 L a minute shows an O2 sat of 98%. General appearance: Chronically and acutely ill female lying in bed. Eyes closed. Will open her eyes and respond to some questions with verbal stimuli. Will reply to some questions. She is unable to recall much. Tires very easily. Eyes: No scleral icterus. Chest: Diminished breath sounds. Maybe a few crackles in the right lower lateral lung nelson. Diminished breath sounds in the left lower lung field with a chest tube in place. Exam done in the supine position as the patient is too weak to sit up. Heart: Somewhat distant tones. Heart tones seem normal. Abdomen: Soft. Nondistended. Nontender. Relatively quiet. Extremities: No pretibial edema. Skin: No rashes. IMAGING: CT scan of the chest shows a 10.3 cm thick-walled, somewhat raggedy cavity in the left lateral upper thorax. Cavity wall measures a little over 0.6 cm. Appears to be invading the chest wall. Chest tube is inferiorly located. There are nodular infiltrates involving the lower lobes with consolidation of the left base. Cirrhotic liver is noted. Splenomegaly present. Multiple gallstones noted. LABORATORY DATA: 1. Shows a white count of 15,100 with 74 polymorphonuclears, 7 bands, 2 myelocytes, 6 lymphocytes, 10 monocytes. Hemoglobin 9.9, platelet count 252,000. Repeats are markedly different and a recheck is pending. Sodium 129, potassium 3.3, chloride 88, CO2 16, BUN 34, creatinine 1.6, glucose 378. Lactic acid is 6.3, with repeat 9 hours later being 1.4. Calcium 9.6 with albumin 2.8. Total bilirubin normal at 0.5. AST normal at 10. ALT normal at 8. Alkaline phos normal at 92. 2. Urine shows 11-50 white cells with moderate bacteria. Leukocyte esterase negative. 3. Coags show INR of 1.25. PTT of 35.5, upper limits normal being 33. D-dimer is elevated at 3.7. ASSESSMENT: 1. Large cavitary lesion, left upper lobe. A nodular lesion was seen on a CT scan of August 25, 2016, measuring 2.5 cm. The current cavitating lesion is in the same location, presumably representing the same process, and is now over 10 cm in size. Certainly cavitating. Could represent a neoplastic process; however, other concerns would include fungal disease, especially Aspergillus, possibly coccidioidomycosis in an immunocompromised host, strep intermedius group anaerobic infection, possibly Gram negatives such as pseudomonas. Staphylococcus would be possible. Nocardia and other lesions are known to cavitate, but this is quite large. Mycobacterial disease possible, but unlikely I think. A chest tube has been placed on the off chance this represents an empyema. There is no drainage, arguing that this is a parenchymal lesion, which I think is. I am a bit loathe to tap this with a needle in order to prevent creating a pulmonary pleural cutaneous fistula and will seek the help of both Oncology and Infectious Disease. I spoke briefly with Infectious Disease and she will be seen later. In the interim will hold off on tapping the lesion and changing her Zosyn to linezolid and meropenem and voriconazole pending further evaluation. Also will discuss the situation with Oncology. Palliative Care has seen her in August and perhaps their re-involvement might be warranted. 2. High-flow oxygen. She is saturating reasonably well. Her gases currently on an FiO2 of 1.0, flow of 80 L a minute, show a pO2 of 110, a pCO2 of 38.2, with a pH of 7.31, consistent with a metabolic acidosis with a superimposed respiratory acidosis. 3. Will need to broach the subject about intubation and mechanical ventilation as I think the patient is failing at this point. That needs to be evaluated in view of the current findings along with her past history. 4. Repeat lab values are quite different than admitting values drawn last evening. They are being repeated. PLAN: 1. Need to consider code status. Will rediscuss the situation with Palliative Care as they have seen her in August. 2. Oncology consultation. 3. Infectious Disease consultation. 4. Discontinue Zosyn. 5. Linezolid IV along with IV meropenem and IV voriconazole. Thank you so much, Dr. Lacey, for asking us to see this most unfortunate and critically ill individual. I will follow her respiratory status closely along with you.
--- NOTE | 2016-09-28 14:48 | NUR ---
NUTRITION ASSESSMENT: ASSESS: Pt is a 51yo F admitted to CCU with uterine CA and lung metastases with probable empyema presents with sepsis. She is s/p chest tube placement. Pt is currently NPO and on BIPAP. Palliative care involved for goals of care. Spoke with about pts PO intake/ appetite. reports that pt sometimes has n/v and her appetite is not very good. Usually she can only tolerate ~25% of a meal. PMHX: uterine ca w/lung mets, cirrhosis, breast ca, T2DM LABS: Reviewed. Bun 26, Glu 273, ca 7.7, alb 2.2 , A1C 8.0 (08/24/16) MEDS: Reviewed. GI: 0 BM SKIN: Pawan 20 CURRENT WTS: 75.8kg, BMI 31.6kg/m2 DIET: NPO EST. NEEDS: ca, BMI Kcals: 1670-1895kcal/day (22-25kcal/kg) Pro: 75-90g/day (1.0-1.2g/kg) Fluid: ~1895ml/day (25cc/kg) NUTRITION DIAGNOSIS: 1.) Decreased PO intake related to chronic disease as evidence by reported decreased appetite and n/v due to chemo and chronic disease 2.) Inadequate oral intake related to decreased ability to consume sufficient energy as evidenced by current NPO status. NUTRITION INTERVENTION: 1.) Recommend advance diet when medically appropriate 2.) Spoke with about ways to increase kcal/pro intake with each bite. Encouraged eating smaller more frequent meals and provided high kcal/pro recipe book. 3.) Pt does not like Ensure or Glucerna 4.) Pt is not appropriate for DM education. Pt's stated that they are already aware of diet but at this point the pt is just trying to eat and not worry so much about following the DM diet MONITOR / EVAL: NPO, BIPAP, labs, wt, GI, POC, nutrition status. Will continue to monitor per high nutrition risk guidelines. Addendum: 09/29/16 at [address] Consult received on 09/[address] Borden to start nutrition support. Per discussion w/ care team during CCU rounds pt is not appropriate for TF at this time d/t dependence on BiPAP. Will continue to follow at high nutrition risk guidelines.
--- NOTE | 2016-09-28 15:51 | DRSVH ---
PROCEDURE: X-RAY CHEST ONE VIEW, PORTABLE ([id number]) INDICATIONS: 51 year-old female with dyspnea and left chest tube placement. TECHNIQUE: One view of the chest was acquired. COMPARISON: [facility], CR, XR CHEST 1VW (PORTABLE), 09/28/2016, 7:07. [facility], CR, XR CHEST 1VW (PORTABLE), 09/28/2016, 5:24. [facility], CR, XR CHEST 1VW (DEJA BLE), 09/27/2016, 17:31. FINDINGS: Surgical changes and devices: Right chest wall Port-A-Cath is again noted, as well as left basal pleu ral drain. Lungs and pleura: Thick walled cavitary lesion is again noted within the lateral left thorax. Bibasil ar airspace opacities persist. Lung volumes are decreased. No pneumothorax. Mediastinum: Mediastinal contours appear normal. Heart size is normal. Bones and chest wall: No suspicious bony lesions. Overlying soft tissues appear unremarkable. IMPRESSION: 1. No change in overall size of thickwalled cavitary lesion in the left mid thoracic cavity, consiste nt with necrotic mass lesion versus lung abscess. 2. Persistent bibasilar airspace opacities, consistent with bronchopneumonia. Dictated by: Mati Ferrer M.D. on 09/28/2016 at 15:49 Approved by: Mati Ferrer M.D. on 09/28/2016 at 15:49
[2016-09-28] MEDS ORDERED: Meropenem Inj 1,000 MG in IV Premix 1 EACH IV SCH (16:30)
--- NOTE | 2016-09-28 16:38 | NUR ---
spiritual care: nurse referral introductory visit with pt. pt using o-2, talking difficult. Pt and spouse shared basic medical plan. Shared that they are mormonism christians, appreciative of family/friend prayer support. will plan to follow as needed.
--- NOTE | 2016-09-28 18:20 | NUR ---
Bipap/2 units PRBCs infused/Dr. Simmons meeting with pt & Spouse Pt tolerating Bipap; resps 26-34, sats >93, pt reports "I feel less short of breath now since the Bipap went on". Completed 2 units PRBCs as per orders; follow-up labs for 1999. Lactate rise noted; repeating Lactate @ 1999. Pt & Spouse meeting with Dr. Simmons @ present; see documentation by
--- NOTE | 2016-09-28 20:25 | PROG NOTE ---
[address] [address] PROGRESS NOTE PATIENT: ORLY GARCIA : 1965 MR#: [id number] ADMIT: 09/27/2016 JOB ID: [id number] DATE: 09/28/2016 HISTORY OF PRESENT ILLNESS: The patient is a 51-year-old woman with type 2 diabetes and cirrhosis of the liver, who is currently receiving palliative therapy for stage IV endometrial undifferentiated carcinoma. She has started a new line of therapy with Doxil chemotherapy and has received one cycle of that, I believe about four weeks ago. She was recently admitted to hospital a month ago after presentation with sudden left-sided pleuritic chest pain. Her CT scan for that admission (August 25) was negative for PE but showed an enlarging mass in the left upper lobe associated with pleural metastases. We felt that represented progressive endometrial carcinoma, and this may very well have been the case. Because of that, we started her on new chemotherapy. During that admission, her procalcitonin was actually quite high at 22, and she initially had mild leukocytosis. She was afebrile during that admission. She was treated for a lower UTI with a few doses of ceftriaxone and was discharged on Keflex, but I think, in retrospect, she may have had left-sided pneumonia that was not adequately treated. After discharge, her left-sided chest pain initially improved but never completely resolved. About a few days ago, her called us and reported that she was quite drowsy on long-acting morphine 30 mg b.i.d. We decreased the dosage to 15 mg long-acting b.i.d., and that helped. Then, about two or three days ago, she developed a very persistent cough associated with malodorous grossly abnormal-looking purulent cough. She says it tasted awful. Her cough was not stopping and she was brought to Urgent Care and from there admitted to hospital. CT chest without contrast yesterday showed a large thick-walled cavity in lateral aspect of the left upper thorax with air-fluid level. Additionally, there is bilateral nodular pulmonary infiltrate involving lower lobes. There is no mediastinal or hilar adenopathy. Other changes include cirrhotic liver and splenomegaly. Her blood culture drawn yesterday is positive for gram-positive cocci, probably strep. Exact identification is pending. Viral respiratory panel is also positive for uribe virus and/or SV. Procalcitonin has not been checked so far. The patient has been afebrile during this admission and she is leukopenic. Overnight, her oxygen saturation dropped and she has been placed on BiPAP. Currently, she is tolerating the BiPAP well and is satting in the high 90s on 80% to 100% FiO2. She remains tachypneic. A chest tube was placed yesterday by Dr. Davenport, but despite the fact that he was definitely in pleural space, no drainage was obtained, and no drainage has been obtained at all from the chest tube so far. IMPRESSION: I think this patient has a huge lung abscess and not empyema. I do not think placement of another chest tube would be beneficial. I am suspecting that perhaps the "pleural mass" that was detected on previous CT scan a month ago was perhaps pneumonia and was not adequately treated and led to lung abscess. I do not think we are facing a mixture of malignancy and infection. I tend to think that this is purely an infectious process. She would like to remain FULL CODE to which I agree given infectious etiology. She seems to be handling BiPAP at this point very well. RECOMMENDATIONS: 1. ID consultation with regards to proper prolonged antibiotic therapy for lung abscess. 2. Chemotherapy will be on hold for a good while and maybe indefinitely (will need to determine later). 3. I will discuss her case with Dr. Deng or Dr. Davenport, but I do not think placing another chest tube is going to be beneficial. 4. I have left an order to start tube feedings via Dobbhoff tube tomorrow morning. 5. We will check a procalcitonin, ESR, CRP and CA-125 tomorrow morning. 6. Patient is FULL CODE.
--- NOTE | 2016-09-28 21:36 | PCM.CONPAL ---
Date of Service Sep 28, 2016 Date of Hospital Admission: Sep 27, 2016 at 19:50 Date of Palliative Consult: Sep 28, 2016 Requesting Provider: Chavo Lacey MD Reason Palliative Care Consult: Goals of Care Discussion Hospital Unit @time of consult: Critical Care Palliative Care Recommendation Summary of palliative recommendations: -Symptom management (Pain/other) Pain adequately controlled Dyspnea- now on high flow O2 and BIPAP Reviewed with re max therapy short of intubation at this time. He understands this. He and Chapis want FULL CODE status as long as there is potential for improvement. He understands if this is progressive malignancy there may not be further txmt but he is expecting to review this with Dr. Borden. If this is lung abscess-treatable but definite concern with dropping WBC. 1 set of + BC with GPC ID still pending. Goals of Care--clear for continued aggressive intervention including intubation if needed at this time. Quality of life has been fairly good prior to acute deterioration with controlled pain and she has very little problem with chemo SE. -DPOA/Advanced Directives/POLST--DPOAHC-her . -Family/emotional support--excellent Additional Medical Diagnoses with primary management by Hospitalist team include : Respiratory distress Lung mass Pancytopenia-plts due to her known cirrhosis but concern with dropping WBC + BC DM Problems: End of Life Preferences FULL CODE until no further options for treatment Goals of Care Continue aggressive treatment and managemnt of sx Resuscitation Status Resuscitation Status: CPR: Attempt Resuscitation Pt History History of Present Illness Pt is a 51 year old female currently being treated with chemotherapy for lung cancer who was sent to the ED from with concerns for an altered mental status and shortness of breath that started earlier today. Her reports that she has been having a productive cough for the past week as well as some rhinorrhea, which has been gradually worsening since its onset. Yesterday, she became excessively weak, confused and began having full body spasms. A pleural effusion was diagnosed while she was at the facility, which prompted her ED visit. She has become increasingly confused, and had one bout of emesis. Pt's denies any fevers, and reports that she did not receive a flu shot this season. PALLIATIVE CARE NOTE reason for consult is goals of care Consulting MD-Dr. Bautista, Dr. Marie Oncologist: Dr. Borden 51 yo female patient of Dr. 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 She had a mass in her lung about 1 month ago noted on chest CT and presumed metastatic that was causing significant chest pain. She had been on [facility] ER at 15 mg BID but this was increased to 30 mg BID at discharge due to ongoing pain. This dose was too sedating and she eventually decreased her dose back to 15 mg with adequate control, using oxycodone for BTP. She developed a profound cough that was productive of foul tasting sputum as well as progressively worsening dyspnea, altered mental status and profound weakness. Her brought her in. On evaluation the SINCERE mass and what appeared to be pleural studding in early August had progressed to a large thick walled cavitating mass. Attempt at draining an associated empyema noted no fluid. She is now on high flow O2 and BIPAP for respiratory support. Due to presumed progression of disease she was started on a new chemo in early aug and is due for her next dose this monday. Past Medical History Significant PMH Noted: Hx breast CA with partial mast and LN resection in 2012. 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 Living Situation: lives with her Responsive Patient Symptoms Pain (current): Moderate Tiredness/Fatigue: Severe *Requires 72 Hour Followup Shortness of Breath: Severe *Requires 72 Hour Followup Palliative Performance Scale Performance Scale: 90% Allergy Allergies Reviewed: Yes Medications Current Medications: Current Medications Al Hydrox/Mg Hydrox/Simethicone 30 ml Q6 PRN PO; Start 09/27/16 at 19:05 Ondansetron HCl Dose range: 4 mg to 8 mg Q4H PRN IVPUSH Last administered on t 22:17; Admin Dose 8 MG; Start 09/27/16 at 19:05 Acetaminophen 975 mg Q6H PRN PO; Start 09/27/16 at 19:05 Enoxaparin Sodium 40 mg 40 mg DAILY SUBQ; Start 09/28/16 at 08:30 Sodium Chloride 1,000 ml @ 100 mls/hr Q10H IV Last administered on 09/27/16 23: 19; Admin Dose 100 MLS/HR; Start 09/27/16 at 22:58; Stop 09/28/16 at 02:09; Status DC Senna 17.2 mg BID PRN PO; Start 09/27/16 at 23:00 Polyethylene Glycol 17 gm DAILY PRN PO; Start 09/27/16 at 23:00 Acetaminophen/ Hydrocodone Bitart 1-2 TABS Q4H PRN PO; Start 09/27/16 at 23:00 Gabapentin 300 mg TID PO; Start 09/27/16 at 23:45 Glipizide 10 mg BID PO; Start 09/28/16 at 08:30; Stop 09/28/16 at 08:30; Status DC Magnesium Oxide 400 mg TID PO; Start 09/28/16 at 08:30 Metformin HCl 500 mg TID PO; Start 09/28/16 at 08:30; Stop 09/28/16 at 08:30; Status DC Metoprolol Tartrate 50 mg BID PO; Start 09/28/16 at 08:30 Morphine Sulfate 15 mg BID PO Last administered on 09/28/16 04:49; Admin Dose 15 MG; Start 09/27/16 at 23:45 Oxycodone/ Acetaminophen 1 tab Q4H PRN PO; Start 09/27/16 at 23:10 Venlafaxine HCl 37.5 mg DAILY PO; Start 09/28/16 at 08:30 Insulin Human Lispro WMHS SUBQ Last administered on 09/28/16 18:20; Admin Dose 4 UNIT; Start 09/27/16 at 23:44 Piperacillin Sod/ Tazobactam Sod/ Dextrose/Water 50 ml @ 12.5 mls/hr Q12 IV; Start 09/28/16 at 08:30; Stop 09/28/16 at 10:37; Status DC Morphine Sulfate 1-2 mg Q4H PRN IVPUSH Last administered on 09/28/16 20:29; Admin Dose 2 MG; Start 09/27/16 at 23:35 Guaifenesin/ Codeine Phosphate 10 ml Q4H PRN PO Last administered on 09/28/16 04:49; Admin Dose 10 ML; Start 09/27/16 at 23:35 Potassium Chloride 20 meq 20 meq DAILYWM PO; Start 09/28/16 at 08:00 Sodium Chloride 1,000 ml @ 150 mls/hr Q6H40M IV Last administered on 09/28/16 15:30; Admin Dose 150 MLS/HR; Start 09/28/16 at 02:10 Sodium Chloride 250 ml @ 10 mls/hr Q24H IV Last administered on 09/28/16 08:20 ; Admin Dose 10 MLS/HR; Start 09/28/16 at 08:20 Meropenem-0.9% Sodium Chloride 1000 mg/Premix 50 ml @ 16.667 mls/ hr Q8 IV; Start 09/28/16 at 16:30; Stop 09/28/16 at 16:30; Status DC Voriconazole 450 mg/Sodium Chloride 120 ml @ 60 mls/hr Q12H IV Last administered on 09/28/16 11:20; Admin Dose 60 MLS/HR; Start 09/28/16 at 10:50; Stop 09/29/16 at 00:49 Sodium Chloride 250 ml @ 10 mls/hr Q24H IV Last administered on 09/28/16 11:11 ; Admin Dose 10 MLS/HR; Start 09/28/16 at 11:11 Scheduled Cholecalciferol (Vitamin D3) (Vitamin D3) 10,000 Unit Capsule 5,000 UNIT PO WEEKLY Every Monday Furosemide (Lasix) 20 Mg Tablet 20 MG PO DAILY Gabapentin (Gabapentin) 300 Mg Capsule 300 MG PO TID 1 AM 1 NOON 2 PM Glipizide (Glipizide) 5 Mg Tablet 10 MG PO BID Magnesium Oxide (Mag-Oxide) 400 Mg Tablet 400 MG PO TID Metformin (Metformin) 500 Mg Tablet 500 MG PO TID Metoprolol Tartrate (Metoprolol Tartrate) 25 Mg Tablet 50 MG PO BID Morphine Sulfate ER (Morphine Sulfate ER) 15 Mg Tablet 15 MG PO BID Spironolactone (Spironolactone) 25 Mg Tablet 25 MG PO DAILY Venlafaxine ER (Effexor XR) 37.5 Mg Cap.er.24h 37.5 MG PO DAILY Scheduled PRN oxyCODONE-Acetaminophen 5-325 mg (oxyCODONE-Acetaminophen 5-325 mg) 1 Each Tablet 1 TAB PO Q4H PRN PRN For Pain Objective Findings Exam Vital Sign - Last Date Time Temp Pulse Resp B/P Pulse Ox O2 Delivery O2 Flow Rate FiO2 09/28/16 20:21 102 34 102/64 100 100 09/28/16 16:30 Supplement Oxygen 09/28/16 16:30 36.3 09/28/16 08:19 80 Intake and Output 09/27/16 09/27/16 09/28/16 Cumulative From/Thru 15:00 23:00 07:00 09/27/16 16:52 - 09/28/16 05:52 Intake Total 3000 ml 1506 ml 4506 ml Output Total 1050 ml 1050 ml Balance 3000 ml 456 ml 3456 ml Intake Oral 0 ml 0 ml IV Total 3000 ml 1506 ml 4506 ml Output Urine Total 1050 ml 1050 ml General: Alert, Oriented HEENT: PERRLA, EOMI, Scleral Anicteric Heart: Regular Rate/Rhythm Lungs: Other (chest tube in place, on BIPAP) Neuro: Follows Commands, Cranial Nerve 3-12 Intact, Other (dozes, defers to her -he gives entire hx etc) Extremities: Edema (1+) Lab/Diagnostics Lab and Imaging results reviewed in detail in EMR. Chest CT/abd CT reviewed f/u CXR- mass c/w necrotic lesion or abscess WBC 15K admit now 2.5 with resolved bandemia PLT 252K now 120K with baseline 75K Hgb 9.9 to 6.2 and now 8 post transfusion Patient/Family Conference Members Present Family Members Present -main discussant due to patient not being able to participate Discussion/Goals of Care Discussion FAMILY UNDERSTANDING OF DISEASE: has excellent grasp of severity of disease. Pain has been adequately controlled but never resolved. Wasn't until the last week with profound coughing that she became significantly more uncomfortable. ] Palliative Care counselled: Time spent Total time [ 50] minutes; >50% face to face with patient and/or family, providing counselling regarding plans and recommendations, and in care coordination with his/her medical teams. Including review with hospital team and . I also spent an additional [ ] minutes counseling for advanced care planning with the patient/the patients family/the surrogate decision maker. Pamela Weiss MD Sep 28, 2016 21:36
[2016-09-29] VITALS (13 sets, daily range): BP systolic 100–137; BP diastolic 48–70; PULSE 91–105; RESP 24–35; O2SAT 92–100
[2016-09-29] MEDS: HYDROmorphone 1 mg/mL Inj IVPUSH PRN ×2 (00:30→15:40)
[2016-09-29] MEDS: 0.9% Sodium Chloride 1,000 ML IV SCH ×4 (04:50→19:05)
[2016-09-29 05:30] LABS: BASOPHILS % (AUTO) 0 % (0-3); EOSINOPHILS % (AUTO) 0 % (0-5); MONOCYTES % (AUTO) 9.5 % (4-12); Mean Corpuscular Hemoglobin 25.9 pg (27.0-35.0); Mean Corpuscular Volume 78.3 fL (81-100); NEUTROPHILS % (AUTO) 85.1 % (40-74); Platelet Count 116 bil/L (150-400)
[2016-09-29 06:05] LABS: Magnesium 1.6 mg/dL (1.6-2.6); Phosphorus 1.9 mg/dL (2.5-4.9)
[2016-09-29] MEDS ORDERED: KCl 40 mEq/100 mL Premix (K 3 - 3.7 & Creat < 2) IV ONE (06:40)
[2016-09-29] MEDS: Potassium Chloride 20 mEq SR Tablet PO SCH (08:00)
[2016-09-29] MEDS: 0.9% Sodium Chloride 250 ML IV SCH ×2 (08:20→10:52)
[2016-09-29] MEDS: Venlafaxine XR 37.5 mg ER24 Capsule PO SCH (08:30)
[2016-09-29] MEDS: Morphine ER 15 mg (MS Contin) Tablet PO SCH ×2 (08:30→20:30)
[2016-09-29] MEDS: SODIUM CHLORIDE 0.9% IV SCH ×2 (09:37→20:30)
[2016-09-29] MEDS: VORICONAZOLE IV SCH ×2 (09:37→20:30)
[2016-09-29] MEDS: Insulin LISPRO 300 Unit/3 mL Inj SUBQ SCH ×4 (09:41→22:25)
--- NOTE | 2016-09-29 10:04 | PROG NOTE ---
[address] [address] PROGRESS NOTE PATIENT: ORLY GARCIA : 1965 MR#: [id number] ADMIT: 09/27/2016 JOB ID: [id number] DATE: 09/29/2016 PROGRESS NOTE: Over the past 24 hours, it has become apparent that the patient's air-fluid level in the chest represents a primary lung infection, possible cavitary metastatic lesion. There has been no significant chest tube output, and there is no air leak by report. Discussed the case on ICU rounds, and I will plan to remove her chest tube. After her chest tube is out, General Surgery will not follow her on a regular basis.
[2016-09-29] MEDS: Meropenem Inj 1,000 MG in IV Premix 1 EACH IV SCH ×2 (10:26→16:37)
--- NOTE | 2016-09-29 11:17 | CONS ---
[address] [address] CONSULTATION REPORT PATIENT: ORLY GARCIA : 1965 MR#: [id number] ADMIT: 09/27/2016 JOB ID: [id number] DATE OF SERVICE: 09/29/2016 INFECTIOUS DISEASE CONSULTATION: I thank Dr. Bautista for this timely consult. REASON FOR CONSULT: Probable large left-sided lung abscess in a patient with underlying advanced uterine cancer. HISTORY OF PRESENT ILLNESS: The patient is an extraordinarily unfortunate 51-year-old woman who was diagnosed back in 2012 with breast cancer. This was treated with localized surgery and chemotherapy and she appeared to be cured. A port that had been placed in her left chest was then pulled. Approximately one year ago, the patient was diagnosed with an apparent second malignancy, being an advanced uterine malignancy. The patient underwent extensive pelvic surgery as well as initiation of chemotherapy, but was felt to have advanced disease with probable liver and possible lung mets. She has received a single dose of Doxil as a palliative chemotherapy agent within the past several weeks. On or about August 25, she was admitted to this hospital with severe left pleuritic chest pain. A CT scan showed what appeared to be a pleural based nodule in the left upper lobe and this was felt to be another metastatic lesion. She also was noted to have pyuria and the urine grew E. coli so eventually the patient was discharged with some improvement in her left pleuritic chest pain and ongoing treatment with Keflex for E. coli urinary tract infection. She finished the antibiotics in early August and reported some improvement in the left pleuritic chest pain with good pain medications. Unfortunately, over the past several days, the patient has developed a hacking cough which has a very foul odor and taste associated with it as well as increasing shortness of breath and eventually some diminished mental status. Her took the patient to Urgent Care two days ago and she was subsequently noted to be extremely ill, sent to the ED and admitted here to the ICU with hypoxia requiring BiPAP. A CT scan compared to the one done a month ago shows that the relatively small apparently left upper lobe pleural based nodule has now enlarged into a massive 8 cm thick-walled cavity with an air fluid level that certainly has the appearance of a large lung abscess. Because of concerns there might be an empyema, General Surgery placed a chest tube but did not find any significant amount of fluid in the pleural space and the plans are to withdraw that left-sided chest tube later today. The patient remains sedated and on BiPAP in the ICU and we cannot obtain any significant additional history from her. Her was in the room, however, and was able to provide some other history. He states that she did not have notable fever or chills prior to the events of September 27 when she was readmitted to the hospital. He does note that she has been having shortness of breath, a cough productive of sputum with a terrible smell and perhaps some mental status changes towards the end of her outpatient time and her readmission here. Recent travel has included only an air flight to [place] with [place] He knows of no other unusual exposures and they have no children or grandchildren around. PAST MEDICAL HISTORY: 1. Breast cancer 2013 felt to be in remission. 2. Stage IV uterine cancer with probable liver and possible lung mets. 3. Compensated cirrhosis of the liver due to nonalcoholic steatohepatitis. 4. Type 2 diabetes mellitus. 5. Status post multiple surgeries including a total abdominal hysterectomy, partial omentectomy, pelvic lymphadenectomy, retrosigmoid resection, and bladder peritonectomy. Also performed was a right breast reconstruction with partial resection. SOCIAL HISTORY: The patient drinks alcohol rarely. Has never smoked and lives with her . 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 She was born in [place] but spent the rest of her life in the [place]. FAMILY HISTORY: Negative for tuberculosis to the best of the 's knowledge. REVIEW OF SYSTEMS: Not possible as the patient is on BiPAP and sedated. PHYSICAL EXAMINATION: Reveals a quite ill woman lying supine in the ICU with BiPAP in place, basically does not respond at this point though she does open her eyes at times. Temperature 36.9. She has been afebrile since admission. Pulse 93, respiratory rate in the upper 20s, blood pressure 125/55. She is saturating well on the BiPAP but is at 100%. Examination of the head: No trauma. Eyes without conjunctival abnormality. Oral cavity difficult to examine as she is on the BiPAP. There are no herpetic lesions seen around the mouth. Neck without adenopathy. Lungs: Surprisingly clear anteriorly but the patient is not moving air terribly well. Cardiac tones: Regular rate and rhythm. Murmur not appreciated. She has a port in the right upper chest which appears benign. Her abdomen has a midline well-healed scar from the umbilicus to the symphysis pubis. There are no masses palpable within the abdomen. No ascites is noted. She has a Stauffer catheter. There is no evidence of skin rash. Neurologic examination could not be performed. LABORATORIES: Include a white count that was 15,000 when she came in, swiftly declined to 2000 and is now 5800. The differential on the 5800 shows a poly predominance of 85%. Her platelets are also a bit low at 116,000. Creatinine 0.48. LFTs normal. Urinalysis without pyuria. Note that a urinalysis on admission though had 11-50 white cells and a urinalysis back on August 25 on a prior admission was packed with white cells. Urine Legionella antigen is negative. Urine pneumococcal antigen is negative. Fungitell and galactomannan are pending. Blood cultures include 2 out of 4 bottles from a set on September 27, both growing a viridans strep. The laboratory reports they do not have the butterscotch smell characteristic of the strep anginosus group and are likely more a standard viridans strep. Respiratory multiplex PCR positive for both RSV and virus. Urine culture negative. Initial sputum was few polys and some mixed sharona and follow up blood cultures are negative at this point. MRSA screen has been reported as negative. The chest x-rays and the CT scans were reviewed. These show a huge, thick-walled abscess measuring 9.4 cm x 11.6 cm. There is an air-fluid level in this large thick-walled cavity. There are also scattered infiltrates in the lower lobes bilaterally which were not present a month ago. The patient has a large spleen and the liver appears to be cirrhotic on CT scan. Gallstones are also seen as well as splenomegaly. IMPRESSION: This is an extremely difficult case of a woman with apparently far advanced uterine cancer who has been receiving palliative chemotherapy. She was admitted her in early September with left pleuritic chest pain and this was felt to be a pleural based metastasis causing her pain and she was treated for a UTI that was also found though apparently not very symptomatic. In any event, she now presents with shortness of breath, some fever and foul smelling sputum with what appears to be the evolution of a very large lung abscess which has progressed from the area where the nodule was seen on the CT scan a month ago. The organisms in the blood are likely no the so-called strep anginosus group and are more likely rather standard strep viridans. These are certainly not the primary cause of her lung abscess as it sounds as if it is primarily anaerobic based on its appearance as well as the foul smell of her sputum. Antibiotics should be directed at oral sharona anaerobes in this patient though in the initial stages we could also provide some coverage for more difficult to treat organisms such as Pseudomonas given her ongoing malignancy and chemotherapy though she has not been neutropenic. It should be noted this patient is double immunosuppressed because not only does she have metastatic cancer requiring chemotherapy, she has cirrhosis with splenomegaly and cirrhosis is in and of itself a seriously immunocompromising illness. RECOMMENDATIONS: 1. I would continue with meropenem and voriconazole. It is unlikely that Aspergillus is involved in this process, but I think it is reasonable to continue with the voriconazole until we get back some sputum cultures as well as galactomannan and Fungitell. If these are negative, we can probably dispense with the voriconazole. 2. As we get more data, we may wish to narrow the antibiotics to a more standard regimen such as ceftriaxone plus Flagyl or ertapenem alone. For now, we will continue with the meropenem. 3. Extremely large lung abscesses such as this may prove refractory to antimicrobials due to their size and may require either percutaneous drainage, which is not without its own hazards, or straightforward resection. Given the size of this, I wonder if we will eventually reach a point where lobectomy or some other surgical resection is considered, but for now, obviously given the gravity of the patient's situation, we will continue with antibiotics. 4. This case discussed last night with Dr. Bautista of the ICU and this morning with Dr. Pinon of the ICU as well as the entire ICU team and the patient's .
--- NOTE | 2016-09-29 11:53 | PCM.PALLBR ---
Palliative Brief Note Date of Service Sep 29, 2016 . Case reviewed with medical/critical care teams on morning CCU rounds. Also reviewed updated records in the EMR in detail, with particular attention to her oncology notes. Goals of care are clear at this time- palliative medicine will sign off but please contact us if we may be of further assistance. Alistair Small MD Sep 29, 2016 11:53
[2016-09-29] MEDS: Ondansetron 2 mg/mL 2 mL Inj IVPUSH PRN (12:27)
--- NOTE | 2016-09-29 12:53 | PCM.PNMED ---
Subjective Date of Service Sep 29, 2016 Subjective PULMONARY/CRITICAL CARE PROGRESS NOTE Patient is on BiPAP and quite somnolent. Unable to obtain ROS. Overnight, patient remained on BiPAP 20/10. 2 units PRBC's given. Otherwise uneventful. Exam Vital Signs Vital Sign - Last Date Time Temp Pulse Resp B/P Pulse Ox O2 Delivery O2 Flow Rate FiO2 09/29/16 09:30 CPAP/BIPAP 09/29/16 08:00 36.9 97 28 115/60 100 100 09/28/16 08:19 80 Intake and Output 09/28/16 09/28/16 09/29/16 Cumulative From/Thru 15:00 23:00 07:00 09/27/16 16:52 - 09/29/16 06:10 Intake Total 414 ml 1341 ml 886 ml 7147 ml Output Total 640 ml 615 ml 2305 ml Balance 414 ml 701 ml 271 ml 4842 ml Intake Oral 0 ml 0 ml 0 ml IV Total 50 ml 1341 ml 886 ml 6783 ml Packed Cells 364 ml 364 ml Output Urine Total 600 ml 600 ml 2250 ml Chest Tube Drainage Total 40 ml 15 ml 55 ml # Bowel Movements 0 0 0 Exam Somnolent, with BiPAP mask in place. No apparent distress. Did not open eyes to verbal command. Cannot evaluate oral cavity at this time. Regular rate and rhythm with no murmur appreciated. Diminished breath sounds on the left. Mild crackles on the right. No wheezing heard. Port placed on the right. Normal bowel tones, soft, nontender, obese. Mild edema noted in the lower extremities. Radial and dorsalis pedis pulses present and equal bilaterally. Stauffer catheter in place. Chest tube on the left. 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 She presented to [facility] on 09/27/16 from Urgent Care with approx. 1 week history of productive cough and increasing confusion. CT of the chest notable for increased size of left lung mass now appearing as a cavitary lesion with the presence of an air fluid level - suspicious for empyema. Chest tube placed 09/28/16 in an attempt to drain the area; has been unsuccessful this far. Pulmonology consulted for increasing O2 needs and further evaluation of suspected empyema. Hospital day #3. 1. Acute hypoxic respiratory failure. - Likely secondary to respiratory infection. - Continue BiPAP at this time. ABG ordered and pending. - Will likely have low threshold for intubation of this patient. 2. Left lung cavitary lesion. - Has increased in size over the past 4-5 weeks. Based on that it is less likely to be an entirely a malignant process. One possibility is that this was an approximately 3 cm malignant tumor that became infected which accounts for it 's tripling in size in such a short period of time. - Concerned about the possibility of aspergillus infection, staph, strep. - Chest tube was placed on 09/28/16 with no significant drainage. Dr. Davenport of general surgery planning to remove this today. - Lobectomy would likely be the definitive treatment for this lesion but at this time the patient is not a good candidate for such a surgery. - IR placement of a catheter to drain this area has also been considered but could be a conduit for spread of the infection as well. Do not recommend this intervention. - Broad coverage antimicrobials started including voriconazole, meropenem and linezolid (day 2). This will be the treatment of choice at this time 3. Severe Sepsis. - Criteria met: tachycardia (119), tachypnea (28), leukocytosis (15), pulmonary source, lactic acidosis with acute kidney injury and altered mental status. - Dr. Mixon has been consulted and we appreciate his input. Continue antibiotics as above in #2. - Lactic acid has normalized. - Continuing IV fluids at this time. - Continue to monitor CBC, procalcitonin. 4. Strep bacteremia. - Possibly viridans. Awaiting sensitivities. - Dr. Mixon is consulting. Antibiotics per his recommendation. 5. Anemia, stable. - Etiology unknown with no obvious source of bleeding. Hemolysis workup ordered and pending. - Received 2 units PRBC's on 09/28/16. - Continue to monitor CBC. 6. Stage IV endometrial undifferentiated carcinoma. - Dr. Borden has been consulted and we appreciate his input. - No plans for continued palliative chemo at this time. 7. Nutrition. - Dr. Borden wrote orders for tube feeding. With BiPAP mask in place having an NG can be uncomfortable for the patient. If patient requires intubation in the near future, will plan to also place OG or NG and initiate feeding at that time. - Could consider TPN but would prefer to defer this for one more day. While nutrition is important, managing her respiratory failure and infection will take priority. VTE Mechanical Devices: Intermittant Pneumatic CD Resuscitation Status: CPR: Attempt Resuscitation Attending Statement I have seen and examined this patient with the resident physician. Vital signs , labs, imaging have been reviewed. I agree with the assessment and plan above. Any changes to the above are indicated in my brief note below. Assessment: 1. Acute hypoxic respiratory failure 2. Left lung abscess 3. RSV and uribe virus pneumonia 4. Severe sepsis 5. Metastatic uterine carcinoma with recurrence She appears slightly clinically improved today so we are going to do a trial off BiPAP and see how she tolerates this. Hold off on tube feedings since the tube would interfere significantly with BiPAP seal and effectiveness. If she is unable to tolerate by mouth today, will start TPN tomorrow Critical care time 45 minutes. Date of service 09/29/16 Pennie Pinon M.D. Pulmonary and Critical Care medicine Pager [phone] Kusum Silva DO Sep 29, 2016 12:53 Pennie Pinon MD Sep 30, 2016 14:42
--- NOTE | 2016-09-29 13:35 | PCM.PNMED ---
Subjective Date of Service Sep 29, 2016 Subjective Patient is somnolent, on BiPAP. Objective RLS not obtainable. Exam Vital Signs Vital Sign - Last Date Time Temp Pulse Resp B/P Pulse Ox O2 Delivery O2 Flow Rate FiO2 09/29/16 12:00 37.0 102 29 109/67 BiPAP 09/29/16 11:50 100 100 09/28/16 08:19 80 Intake and Output 09/28/16 09/28/16 09/29/16 Cumulative From/Thru 15:00 23:00 07:00 09/27/16 16:52 - 09/29/16 06:10 Intake Total 414 ml 1341 ml 886 ml 7147 ml Output Total 640 ml 615 ml 2305 ml Balance 414 ml 701 ml 271 ml 4842 ml Intake Oral 0 ml 0 ml 0 ml IV Total 50 ml 1341 ml 886 ml 6783 ml Packed Cells 364 ml 364 ml Output Urine Total 600 ml 600 ml 2250 ml Chest Tube Drainage Total 40 ml 15 ml 55 ml # Bowel Movements 0 0 0 Exam Extremely pale. Sedated. BiPAP in place. Neck is supple normal JVP. Lungs no active over breathing. Otherwise clear. Heart is regular without murmur Abdomen soft nondistended Extremities with 1+ edema. 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 She presented to [facility] on 09/27/16 from Urgent Care with approx. 1 week history of productive cough and increasing confusion. CT of the chest notable for increased size of left lung mass now appearing as a cavitary lesion with the presence of an air fluid level - suspicious for empyema. Chest tube placed 09/28/16 in an attempt to drain the area; has been unsuccessful this far. Pulmonology consulted for increasing O2 needs and further evaluation of suspected empyema. Hospital day #3. 1. Acute hypoxic respiratory failure. POA. Will continue use BiPAP as needed. Have had the level of care discussions and patient will be intubation with ventilatory support if she requires this. - 2. Left lung abscess. POA. -Patient is being followed by pulmonary critical care as well as infectious disease. We will continue our broad spectrum antimicrobial and antifungal therapy for presumed lung abscess. At this point the consensus is that there is no role for percutaneous drainage and drainage for fear of seeding the pleural space or developing a fistula. 3. Severe Sepsis. - Criteria met: tachycardia (119), tachypnea (28), leukocytosis (15), pulmonary source, lactic acidosis with acute kidney injury and altered mental status. Continuing treatment of the primary source of infection, lung abscess. Follow cultures. The patient did have a respiratory PCR positive T4 to viruses as well.. 4. Strep bacteremia. One out of 4. She is unclear in terms of clinical significance and may be contaminant. Will follow cultures. - Possibly viridans. Awaiting sensitivities. - Dr. Mixon is consulting. Antibiotics per his recommendation. 5. Anemia, stable. - Etiology unknown with no obvious source of bleeding. Hemolysis workup ordered and pending. - Received 2 units PRBC's on 09/28/16. - Continue to monitor CBC. No evidence of clinical bleeding. We will continue to follow carefully. 6. Stage IV endometrial undifferentiated carcinoma. - Oncology is involved. This point we are continuing to treat active reversible problems. 7. Nutrition. -The patient requires increased caloric support but is unable to have antral feedings were increased by mouth intake because of BiPAP support that has been required all of the time. We will follow her clinical status carefully. Patient has a very guarded prognosis. Pain Evaluation: Adequate Pain Control VTE Mechanical Devices: Intermittant Pneumatic CD Resuscitation Status: CPR: Attempt Resuscitation Time spent 30 minutes Chavo Lacey MD Sep 29, 2016 13:35
--- NOTE | 2016-09-29 14:01 | PCM.PROC ---
Procedure Note Date of Service: Sep 29, 2016 Pre Procedure Diagnosis: Left sided Empyema Post Procedure Diagnosis: Same Procedure: Left CT removal Provider and Bag Cutter: Rebecca Renee Indication for Procedure: No longer indicated Findings: Decreased drainage, No A/L Procedural Analgesia: Premedicated with Morphine Procedure Details: Procedure explained to patient. Patient remained in Supine position with left arm up across chest. Dressing taken down. [place] stitch cut. CT pulled on sustained inspiration. Vaseline guaze 4X4 dressing applied with 2" tape. No complications. Tolerated procedure Specimen: NONE Post Procedure Plan: Per Pulmonary/Critical Care Rebecca Renee PA-C Sep 29, 2016 14:00
--- NOTE | 2016-09-29 16:03 | ABG ---
DateTimeAnalyzed 15:57:00 -_ pH ____7.398 - 7.350 7.450 pCO2 ___37.3__ -mmHg 35.0 45.0 pO2 ___66.0__ -mmHg 69.0 116 HCO3- ___22.5__ -mmol/L 22.0 26.0 ABE ___-1.5__ -mmol/L -2.0 2.0 tHb ____9.5__ -g/dL O2Hb ___92.0__ -% COHb ____1.4__ -% MetHb ____0.9__ -% sO2 ___94.2__ -% FIO2 ___80.0__ -% Drawn By nb - Date/Time Notified____ 16:03:00 -_ Spontaneous_RR ___33.0__ -b/min Oxygen Device 1 _oxy mask - Notified By nb - Notified Whom ___Parimi - B 763 -mmHg tO2 ___12.4__ -Vol% Chavo test N/A -
--- NOTE | 2016-09-29 17:32 | NUR ---
Respiratory/LOC Pt on BIPAP most of shift, somewhat decreased LOC (RASS -1), woke to light touch. As shift went on, pt more awake and answering questions. MD at bedside, switched from BiPAP to oxymask 6L around 1400. RR mostly in the high 20s-30s, HR SR with occasional PVCs. Using PRN morphine alternating with dilaudid for pain control. Pt also had one time dose of 0.5mg ativan for anxiety after switched from bipap to mask. at bedside throughout shift. Frequent oral care and rounding continues.
--- NOTE | 2016-09-29 19:09 | PROG NOTE ---
[address] [address] PROGRESS NOTE PATIENT: ORLY GARCIA : 1965 MR#: [id number] ADMIT: 09/27/2016 JOB ID: [id number] DATE: 09/29/2016 DIAGNOSES: 1. Lung abscess and multifocal bilateral pneumonia. 2. Stage 4 high-grade endometrial carcinoma. 3. Cirrhosis of the liver. 4. Type 2 diabetes. SUBJECTIVE: Today her chest tube was removed. As of 2 hours ago she has been placed on OxyMask and has been saturating in mid 90s or higher. She is still tachypneic. She is more comfortable on OxyMask than BiPAP. She continues to have cough. OBJECTIVE: Blood pressure 120/55, respiratory rate in high 20s, heart rate around 100, temperature remains afebrile. She is awake, alert and oriented x3. She looks exhausted and dyspneic. LABORATORY: Leukocyte count has improved to normal. Procalcitonin is markedly high at 36. Lactic acid has normalized. Renal function is normal. The Streptococcus identification is still pending. MRSA screen is negative. Aspergillus galactomannan and fungal antibodies are pending. ASSESSMENT AND PLAN: 1. Huge left-sided lung abscess and bibasilar pneumonia. She is noticeably improved over the last 24 hours on current antibiotics. She first received one day of Zosyn, levofloxacin, and vancomycin, and is now on day two of meropenem and voriconazole. 2. Advanced endometrial high-grade carcinoma. Treatment on hold for a long period of time or perhaps indefinitely. 3. Malnutrition. She has not had any calorie intake since admission and has not had much calorie intake prior to admission either. I think by tomorrow we either need to start TPN or tube feeding if she does not start eating well.
[2016-09-30] VITALS (13 sets, daily range): BP systolic 118–144; BP diastolic 61–83; PULSE 88–120; RESP 30–41; O2SAT 95–100
[2016-09-30] MEDS: Meropenem Inj 1,000 MG in IV Premix 1 EACH IV SCH ×3 (00:30→17:25)
[2016-09-30] MEDS: 0.9% Sodium Chloride 1,000 ML IV SCH (02:42)
[2016-09-30] MEDS: Insulin LISPRO 300 Unit/3 mL Inj SUBQ SCH ×4 (05:00→21:56)
--- NOTE | 2016-09-30 05:08 | ABG ---
DateTimeAnalyzed 05:04:00 -_ pH ____7.380 - 7.350 7.450 pCO2 ___37.0__ -mmHg 35.0 45.0 pO2 ___88.6__ -mmHg 69.0 116 HCO3- ___21.4__ -mmol/L 22.0 26.0 ABE ___-2.8__ -mmol/L -2.0 2.0 tHb ____9.8__ -g/dL O2Hb ___95.8__ -% COHb ____1.3__ -% MetHb ____0.5__ -% sO2 ___97.6__ -% FIO2 ___80.0__ -% Pressure_Support ___20.0__ -cmH2O PEEP ___10.0__ -cmH2O Set_RR ___24.0__ -b/min Drawn By blf - Date/Time Notified____ 05:08:00 -_ Spontaneous_RR ___36.0__ -b/min Oxygen Device 1 ____BIPAP - Notified By blf - Notified Whom JACLYN HERLICKSON RN -__ B 759 -mmHg tO2 ___13.3__ -Vol% Chavo test _Positive -
[2016-09-30 05:11] LABS: EOSINOPHILS % (AUTO) 0 % (0-5); Mean Corpuscular Hemoglobin 25.8 pg (27.0-35.0); Mean Corpuscular Volume 78.8 fL (81-100); Platelet Count 103 bil/L (150-400)
[2016-09-30 05:38] LABS: Magnesium 1.4 mg/dL (1.6-2.6); Phosphorus 1.6 mg/dL (2.5-4.9)
[2016-09-30 05:39] LABS: BASOPHILS % (AUTO) 0 % (0-3); MONOCYTES % (AUTO) 6 % (4-12); NEUTROPHILS % (AUTO) 81 % (40-74)
--- NOTE | 2016-09-30 05:48 | NUR ---
Respiratory, anxiety Vs as noted. Sats on 6l oxymask initially mid 90s. After repositioning complains of being short of breath, desaturated to 84% despite 15l oxymask and recent Morphine. Placed on bipap with gradual resolution of shortness of breath. 0330 complained of being short of breath while on bipap resolved with morphine. Tele sinus [id number] improving to sinus rhythm 90s. Remains afebrile. Left portacath in place with ivf NS at 150ml/h. Remains npo. Stauffer cath in place with 1000ml uop this shift.
[2016-09-30] MEDS ORDERED: KCl 40 mEq/100 mL Premix (K 3 - 3.7 & Creat < 2) IV ONE (06:20)
[2016-09-30] MEDS: 0.9% Sodium Chloride 250 ML IV SCH ×2 (07:13→09:37)
[2016-09-30] MEDS: Potassium Chloride 20 mEq SR Tablet PO SCH (07:13)
[2016-09-30] MEDS: Ondansetron 2 mg/mL 2 mL Inj IVPUSH PRN ×2 (07:32→07:46)
[2016-09-30] MEDS ORDERED: Magnesium Sulf 4 Gm/100 mL H2O 4 GM in IV Premix 1 EACH IV ONE (07:40)
[2016-09-30] MEDS: Venlafaxine XR 37.5 mg ER24 Capsule PO SCH (07:48)
[2016-09-30] MEDS: Morphine ER 15 mg (MS Contin) Tablet PO SCH ×2 (07:48→20:30)
[2016-09-30] MEDS ORDERED: Insulin GLARgine 100 Unit/mL Syringe SUBQ ONE (07:50)
[2016-09-30] MEDS ORDERED: Potassium Chloride Inj 20 MEQ in Dextrose 5% 250 ML IV ONE (07:50)
--- NOTE | 2016-09-30 08:01 | PCM.PNMED ---
Subjective Date of Service Sep 30, 2016 Subjective Patient was just vomiting. She came off from BiPAP for that reason. She has been on BiPAP since about 10. She does feel nauseated and has some mild abdominal discomfort. She feels short of breath. No overt pain. Exam Vital Signs Vital Sign - Last Date Time Temp Pulse Resp B/P Pulse Ox O2 Delivery O2 Flow Rate FiO2 09/30/16 04:50 106 36 130/73 99 80 09/30/16 04:00 37.1 BiPAP 09/29/16 20:00 6.00 Intake and Output 09/29/16 09/29/16 09/30/16 Cumulative From/Thru 15:00 23:00 07:00 09/27/16 16:52 - 09/30/16 05:42 Intake Total 1322 ml 1870 ml 19208 ml Output Total 750 ml 1000 ml 4055 ml Balance 572 ml 870 ml 6284 ml Intake Oral 0 ml IV Total 1322 ml 1870 ml 9975 ml Packed Cells 364 ml Output Urine Total 750 ml 1000 ml 4000 ml Chest Tube Drainage Total 55 ml # Bowel Movements 0 Exam Chronically ill. Soft spoken. Pale skin. Normal scalp Anicteric sclerae. Lungs are clear with increased rate and effort Heart is regular without murmur Abdomen is soft and nondistended. Extremities with 1+ edema, good pedal and radial pulses IVs and Medications Medications Reviewed: Medications were reviewed in detail Lab and Diagnostics Result Diagram: 09/30/16 0440 09/30/16 0440 Assessment & Plan Patient is a 51 year old female with a history of stage IV uterine cancer with 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 She presented to [facility] on 09/27/16 from Urgent Care with approx. 1 week history of productive cough and increasing confusion. CT of the chest notable for increased size of left lung mass now appearing as a cavitary lesion with the presence of an air fluid level - suspicious for empyema. Chest tube placed 09/28/16 in an attempt to drain the area; has been unsuccessful this far. Pulmonology consulted for increasing O2 needs and further evaluation of suspected empyema. Hospital day #3. 1. Acute hypoxic respiratory failure. POA. Will continue use BiPAP as needed. Have had the level of care discussions and patient will be intubation with ventilatory support if she requires this. - She appears to be clinically stable, but tenuous. 2. Left lung abscess. POA. -Patient is being followed by pulmonary critical care as well as infectious disease. We will continue our broad spectrum antimicrobial and antifungal therapy for presumed lung abscess. At this point the consensus is that there is no role for percutaneous drainage and drainage for fear of seeding the pleural space or developing a fistula. We will repeat chest x-ray today. No changes to antimicrobials and antifungals. No new culture data. 3. Severe Sepsis. - Criteria met: tachycardia (119), tachypnea (28), leukocytosis (15), pulmonary source, lactic acidosis with acute kidney injury and altered mental status. Continuing treatment of the primary source of infection, lung abscess. Follow cultures. The patient did have a respiratory PCR positive RSV and uribe viruses as well. Droplet isolation. 4. Strep bacteremia. One out of 4. She is unclear in terms of clinical significance and may be contaminant. Will follow cultures. - Possibly viridans. Awaiting sensitivities. - Dr. Mixon is consulting. Antibiotics per his recommendation. 5. Anemia, stable. - Etiology unknown with no obvious source of bleeding. Hemolysis workup ordered and pending. - Received 2 units PRBC's on 09/28/16. - Continue to monitor CBC. No evidence of clinical bleeding. We will continue to follow carefully. 6. Stage IV endometrial undifferentiated carcinoma. - Oncology is involved. This point we are continuing to treat active reversible problems. 7. Nutrition. -The patient requires increased caloric support but is unable to have antral feedings were increased by mouth intake because of BiPAP support that has been required all of the time. We will follow her clinical status carefully. 8. Hyperglycemia. Will give Lantus 10 today. Continue correctional lispro. 9. Hypernatremia, I will discuss D5W versus one half normal saline with primary critical care for fluid change today. Patient has a very guarded prognosis. Pain Evaluation: Adequate Pain Control VTE Mechanical Devices: Intermittant Pneumatic CD Resuscitation Status: CPR: Attempt Resuscitation Time spent 20 minutes Chavo Lacey MD Sep 30, 2016 08:01
[2016-09-30] MEDS: VORICONAZOLE IV SCH ×2 (08:11→20:30)
[2016-09-30] MEDS: SODIUM CHLORIDE 0.9% IV SCH ×2 (08:11→20:30)
[2016-09-30] MEDS ORDERED: TPN Per Pharmacist XX ONE (09:15)
[2016-09-30] MEDS: Dextrose 5% 1,000 ML IV SCH (09:36)
--- NOTE | 2016-09-30 10:03 | PCM.PNMED ---
Subjective Date of Service Sep 30, 2016 Subjective PULMONARY/CRITICAL CARE PROGRESS NOTE Patient is on BiPAP and it is difficult to communicate with her this morning. She briefly states that she is having pain and feeling nauseated. She nods affirmatively when asked if she is tired. Overnight the patient had to be placed on BiPAP again. She had increased respiratory rate and work of breathing on oxymask. Exam Vital Signs Vital Sign - Last Date Time Temp Pulse Resp B/P Pulse Ox O2 Delivery O2 Flow Rate FiO2 09/30/16 08:28 92 37 129/83 98 80 09/30/16 04:00 37.1 BiPAP 09/29/16 20:00 6.00 Intake and Output 09/29/16 09/29/16 09/30/16 Cumulative From/Thru 15:00 23:00 07:00 09/27/16 16:52 - 09/30/16 05:42 Intake Total 1322 ml 1870 ml 36558 ml Output Total 750 ml 1000 ml 4055 ml Balance 572 ml 870 ml 6284 ml Intake Oral 0 ml IV Total 1322 ml 1870 ml 9975 ml Packed Cells 364 ml Output Urine Total 750 ml 1000 ml 4000 ml Chest Tube Drainage Total 55 ml # Bowel Movements 0 Exam Awake and answering questions with BiPAP mask in place. No apparent distress. PERRLA, EOMI, sclera anicteric No apparent oral thrush seen through BiPAP mask Regular rate and rhythm with no murmur appreciated. Diminished breath sounds on the left. Mild crackles on the right. No wheezing heard. Port placed on the right. Normal bowel tones, soft, nontender, obese. Mild edema noted in the lower extremities. Radial and dorsalis pedis pulses present and equal bilaterally. Stauffer catheter in place. IVs and Medications Medications Reviewed: Medications were reviewed in detail Lab and Diagnostics Result Diagram: 09/30/16 0440 09/30/16 0440 Assessment & Plan Patient is a 51 year old female with a history of stage IV uterine cancer with 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 She presented to [facility] on 09/27/16 from Urgent Care with approx. 1 week history of productive cough and increasing confusion. CT of the chest notable for increased size of left lung mass now appearing as a cavitary lesion with the presence of an air fluid level - suspicious for empyema. Chest tube placed 09/28/16 and removed 09/29/16. Pulmonology consulted for increasing O2 needs and further evaluation of suspected empyema. Hospital day #4. 1. Acute hypoxic respiratory failure. - Likely secondary to respiratory infection. - Continue BiPAP at this time. Goal O2 saturation 92-95%. - ABG ordered daily. - Will have low threshold for intubation of this patient if work of breathing remains increased. 2. Left lung cavitary lesion. - Has increased in size over the past 4-5 weeks. Based on that it is less likely to be an entirely a malignant process. One possibility is that this was an approximately 3 cm malignant tumor that became infected which accounts for it 's tripling in size in such a short period of time. - Concerned about the possibility of aspergillus infection, staph, strep. - Chest tube removed by Dr. Davenport on 09/29/16. - Lobectomy would likely be the definitive treatment for this lesion but at this time the patient is not a good candidate for such a surgery. - IR placement of a catheter to drain this area has also been considered but could be a conduit for spread of the infection as well. Do not recommend this intervention. - Broad coverage antimicrobials started including voriconazole, meropenem (day 3 ). This will be the treatment of choice at this time. 3. Severe Sepsis. - Criteria met: tachycardia (119), tachypnea (28), leukocytosis (15), pulmonary source, lactic acidosis with acute kidney injury and altered mental status. - Dr. Mixon has been consulted and we appreciate his input. Continue antibiotics as above in #2. - Continuing IV fluids D5W at 50 ml/hr. - Continue to monitor CBC, procalcitonin. 4. Strep bacteremia (2 of 4 bottles). - Possibly viridans. Awaiting sensitivities. - Dr. Mixon is consulting. Antibiotics per his recommendation. 5. Anemia, stable. - Etiology unknown with no obvious source of bleeding. Hemolysis workup negative. - Received 2 units PRBC's on 09/28/16. - Continue to monitor CBC. 6. Stage IV endometrial undifferentiated carcinoma. - Dr. Borden has been consulted and we appreciate his input. - No plans for continued palliative chemo at this time. 7. Hypernatremia. - Switch IV fluids to D5W. - TPN per nutrition and pharmacy. 8. Nutrition. - Initiate TPN per nutrition and pharmacy. VTE Mechanical Devices: Intermittant Pneumatic CD Resuscitation Status: CPR: Attempt Resuscitation Attending Statement I have seen and examined this patient with the resident physician. Vital signs , labs, imaging have been reviewed. I agree with the assessment and plan above. Please refer to my separately dictated progress note for any modifications to above. Pennie Pinon M.D. Pulmonary and Critical Care medicine Pager [phone] Kusum Silva DO Sep 30, 2016 10:03 Pennie Pinon MD Sep 30, 2016 14:46
--- NOTE | 2016-09-30 10:10 | PCM.PHAPRO ---
Progress Altered mental status and shortness of breath TPN#1 Patient ID: I. Fluid Status/HD II. Chemistries III. Glycemic Control IV. Substrate PARENTERAL NUTRITION ORDERS 1 30-Sep-16 Standard Hang Time: 2100 Substrates Total kcal: 582 AMINO ACIDS 40 g DEXTROSE 80 g Total Volume (mL): 1800 LIPIDS 15 g Sterile Water for Injection QS mL To Infuse Over (hrs): 24 Total Volume 1800 mL At at a rate of (mL/hr): 75 Additives Sodium Chloride 40 mEq "typical" daily requirements Sodium Acetate 20 mEq Sodium 50-120mEq Potassium Chloride 60 mEq Potassium 60-120mEq Potassium Phosphate 40 mEq Phosphate 20-40mEq Calcium Gluconate 4.5 mEq Magnesium 8-32mEq Magnesium Sulfate 16 mEq Calcium 9-22mEq Acetate* 80-120mEq Chloride* 80-120mEq Regular Insulin 10 units *Depending on acid-base status Famotidine mg Multivitamins 1 std dose Insulin Regimen Trace Elements 1 std dose none Thiamine mg Regular Low Intensity Subcut Folic Acid mg Regular Medium Intensity Subcut Ascorbic Acid mg Regular High Intensity Subcut Regular Insulin Infusion Other: Special Instructions: To be infused via central line only. Ifeanyi Black Pharm D Sep 30, 2016 10:10
[2016-09-30] MEDS: MetoCLOpramide 5 mg/mL 2 mL Inj IVPUSH PRN ×2 (10:32→18:23)
[2016-09-30] MEDS ORDERED: Furosemide 10 mg/mL 2 mL Inj IVPUSH ONE ×2 (11:05→15:25)
--- NOTE | 2016-09-30 12:54 | PROG NOTE ---
[address] [address] PROGRESS NOTE PATIENT: ORLY GARCIA : 1965 MR#: [id number] ADMIT: 09/27/2016 JOB ID: [id number] DATE: 09/30/2016 PULMONARY/CRITICAL CARE PROGRESS NOTE: The patient was seen and examined with resident physician, Kusum Silva DO. Please refer to her separate detailed note for additional information. The following is an addendum. SUBJECTIVE: The patient is a 51-year-old woman with stage 4 uterine carcinoma with recurrence presenting with lung abscess, RSV pneumonia, and acute respiratory failure. INTERVAL HISTORY: Yesterday her respiratory status seemed slightly improved and she had many hours off of BiPAP, on OxyMask, and did reasonably well. Over the course of the evening, however, it sounds like she had increasing tachypnea and hypoxia and was placed back on BiPAP overnight. She is currently still on BiPAP at very high settings of 20/10. She just took a break and is currently on nonrebreather, although still appears slightly tachypneic. REVIEW OF SYSTEMS: Positive for dyspnea. No fever, chills, chest pain. She does have some nausea. PHYSICAL EXAMINATION: Vital signs reviewed. Temp 37.1, pulse 118, respirations 30, BP 128/71, sats 95% on 80% FiO2 on BiPAP. In general, chronically ill-appearing, slightly tachypneic, but alert, answering questions. Chest: Clear. I do not hear any abnormal breath sounds. but there is poor air movement bilaterally. LABORATORY: Reviewed. WBC 7.1. Sodium is up to 150. Procalcitonin yesterday was 35. Micro data-blood culture positive for strep. Identification pending. Nasal swab positive for coronavirus and RSV. Chest x-ray pending today. ASSESSMENT: 1. Acute hypoxic respiratory failure. On BiPAP alternating with high-flow. 2. Lung abscess. 3. Respiratory syncytial virus and coronavirus viral pneumonia. 4. Streptococcal bacteremia. 5. Metastatic uterine carcinoma with recurrence. 6. Protein calorie malnutrition. 7. Hypernatremia. RECOMMENDATIONS: This 51-year-old woman was initially diagnosed with uterine carcinoma in early 2015, underwent cytoreductive surgery at [facility] in October 2015. She was subsequently treated with chemotherapy and found to have recurrence in the form of a presumed lung met in August. At this point she was switched from Avastin to Doxil and only had one cycle of chemo in early August. Subsequently imaging showed evidence of a large cavitary lesion with air-fluid level in the same area as the pre-existing presumed lung metastasis. She is bacteremic, with Streptococcus on her initial cultures, and identification is pending. This could be an anaerobic organism from the lung abscess. She also has coronavirus and RSV on nasal swab. She is currently being treated with meropenem. She is going to need many weeks of therapy for the lung abscess. Linezolid was stopped because her MRSA nasal swab was negative. She also has voriconazole on board because she has been immunocompromised with chemotherapy. Frankly, since she has not had any documented neutropenia, I think it is highly unlikely that this is Aspergillus related; however, she currently has both fungal antibodies and galactomannan pending and once these are negative we can stop the voriconazole. From a respiratory standpoint, she continues to be quite tenuous. She has previously stated that she wishes to be intubated if the need arises. We are going to switch her to high-flow nasal cannula currently and see how she tolerates it. She is slightly worse today compared to yesterday. Chest x-ray was just done and shows worsening infiltrate at the left base. I would like to see if a dose of Lasix would help improve volume overload and improve her symptoms. Alternatively, we will look into whether there is any indication for therapy for the RSV. From a nutrition standpoint we were hoping she could take something p.o. yesterday, but it looks like that did not happen. A feeding tube would interfere with the BiPAP seal and is relatively contraindicated with BiPAP. We are going to start TPN today. Hopefully this will also correct her free water deficit. TIME: Critical care time 60 minutes. MTDD
--- NOTE | 2016-09-30 13:08 | DRSVH ---
PROCEDURE: X-RAY CHEST ONE VIEW, PORTABLE ([id number]) INDICATIONS: dyspnea TECHNIQUE: One view of the chest was acquired. COMPARISON: 09/28/2016 FINDINGS: Surgical changes and devices: Right-sided port is unchanged. Left pleural drain has been removed. Lungs and pleura: Large air-filled cavity in the left mid and upper lung field is unchanged. There is surrounding consolidation extending into the left lower lobe, unchanged. Right lower lobe infiltrate is slightly increased. Small residual left pleural effusion. No pneumothorax. Mediastinum: Mediastinal contours appear normal. Heart size is normal. Bones and chest wall: No suspicious bony lesions. Overlying soft tissues appear unremarkable. IMPRESSION: 1. Bilateral lower lobe pneumonia. 2. Cavitary lesion in the left lung field is unchanged, possible pneumatocele but indeterminate. 3. Interval removal of left-sided chest tube. Dictated by: Fermín Yeh M.D. on 09/30/2016 at 13:06 Approved by: Fermín Yeh M.D. on 09/30/2016 at 13:06
--- NOTE | 2016-09-30 13:34 | NUR ---
NUTRITION ASSESSMENT: ASSESS: 51 YO female admitted to CCU with acute hypoxic respiratory failure, on BiPAP alternating with high-flow O2; lung abscess; respiratory syncytial virus and coronavirus viral pneumonia; streptococcal bacteremia. Chest tube removed today. The patient is somnolent and nauseous; low threshold for intubation at this point. Palliative team signed off, as patient / family are clear with their goals of care at this time. Oncology unable to offer additional palliative chemotherapy at this time. The patient is not a candidate for a lobectomy due to her debilitated status. Spoke with about pts PO intake/ appetite. reports that pt sometimes has n/v and her appetite is not very good. Usually she can only tolerate ~25% of a meal. Due to partial requirement for BiPAP, enteral feeding not ideal route of nutrition support at this time. Order received to initiate TPN today. Code status: full. PMHx, Breast cancer, stage IV uterine cancer with mets status post palliative chemotherapy, cirrhosis, breast ca, T2DM. LABS: Reviewed. Na 150, K+ 3.2, Chloride 112, Cr 0.41, Glu 263, A1c 8.0, Phos 1.6, Mg 1.4. MEDS:Reviewed. Insulin, reglan. GI: No BM x 3 D. SKIN: Pawan 12. WT:83.6 kg, BMI 34.0 kg/m2. Admit weight: 75.8kg, BMI 31.6kg/m2 DIET: NPO EST. NEEDS: ca, BMI Kcals: 1670-1895kcal/day (22-25kcal/kg) Pro: 75-90g/day (1.0-1.2g/kg) Fluid: ~1895ml/day (25cc/kg) NUTRITION DIAGNOSIS: 1) Decreased / inadequate PO intake related to chronic disease as evidence by reported decreased appetite and n/v due to chemo and chronic disease - PERSISTS. 2) Increased nutrient needs related to advanced cancer. NUTRITION INTERVENTION: 1) TPN recommendation follows: 80 g dextrose, 40 g amino acids, 50 g lipids, which is 33% goal macronutrient rate 240 g dextrose, 115 g amino acids, 50 g lipids (which will provide 1776 kcal, 115 g protein and meet 100% nutrient needs). Note refeeding is a significant risk for this patient. 2)Recommend advance diet and add supplements when medically appropriate. 3)Spoke with about ways to increase kcal/pro intake with each bite. Encouraged eating smaller more frequent meals and provided high kcal/pro recipe book. Pt does not like Ensure or Glucerna 4) Pt is not appropriate for DM education. Pt's stated that they are already aware of diet but at this point the pt is just trying to eat and not worry so much about following the DM diet MONITOR / EVAL: TPN tolerance, NPO status, BIPAP requirement, labs, wt, GI, POC, nutrition status. Will continue to monitor per high nutrition risk guidelines.
[2016-09-30] MEDS: HYDROmorphone 1 mg/mL Inj IVPUSH PRN (18:23)
[2016-09-30] MEDS: Total Parenteral Nutrition 1 BAG IV SCH (21:55)
[2016-10-01] VITALS (17 sets, daily range): BP systolic 115–139; BP diastolic 70–83; PULSE 93–115; RESP 26–42; O2SAT 93–96
[2016-10-01] MEDS: Meropenem Inj 1,000 MG in IV Premix 1 EACH IV SCH ×3 (00:43→16:58)
[2016-10-01] MEDS: MetoCLOpramide 5 mg/mL 2 mL Inj IVPUSH PRN (00:57)
[2016-10-01] MEDS: HYDROmorphone 1 mg/mL Inj IVPUSH PRN ×3 (02:18→16:50)
[2016-10-01 04:43] LABS: Mean Corpuscular Volume 78.4 fL (81-100); Platelet Count 96 bil/L (150-400)
[2016-10-01 05:01] LABS: Magnesium 1.7 mg/dL (1.6-2.6); Phosphorus 2.3 mg/dL (2.5-4.9)
[2016-10-01] MEDS: Dextrose 5% 1,000 ML IV SCH (05:15)
[2016-10-01 05:23] LABS: BASOPHILS % (AUTO) 0 % (0-3); EOSINOPHILS % (AUTO) 0 % (0-5); MONOCYTES % (AUTO) 8 % (4-12); NEUTROPHILS % (AUTO) 83 % (40-74)
--- NOTE | 2016-10-01 05:56 | NUR ---
Respiratory, pain VS as noted. Tele initially sinus rhythm 90s gradually increasing to 100s. Increasingly restless. Restarted on bipap 70% /10. Complained of ongoing chest ache discomforts. Morphine given x2 and dilaudid x1with some relief. Taking liberal amounts of ice chips during the evening without problems. TPN started as ordered. Stauffer cath in place with 1200ml uop this shift.
[2016-10-01] MEDS: Potassium Chloride 20 mEq SR Tablet PO SCH (08:00)
--- NOTE | 2016-10-01 08:28 | DRSVH ---
PROCEDURE: X-RAY CHEST ONE VIEW, PORTABLE ([id number]) INDICATIONS: shortness of breath TECHNIQUE: One view of the chest was acquired. COMPARISON: [facility], CR, XR CHEST 1VW (PORTABLE), 09/28/2016, 14:36. [facility] R, CHEST 2VW, 09/27/2016, 4:49 PM. [facility], CR, XR CHEST 1VW (PORTABLE), 08/24/2016, 23:02. [facility], CR, XR CHEST 1VW (PORTABLE), 09/30/2016, 10:58. FINDINGS: Surgical changes and devices: Unchanged appearance of right chest port Lungs and pleura: No pleural effusions or pneumothorax. No interval change in bilateral lower lobe c onsolidative opacities. Large left lung cavitary lesion is again seen, grossly unchanged Mediastinum: Cardiac silhouette and mediastinal contours are stable. Bones and chest wall: No suspicious bony lesions. Overlying soft tissues appear unremarkable. IMPRESSION: Mildly improved aeration of the right lung base otherwise grossly stable examination since yesterday Large left lung cavitary lesion as before. Dictated by: Daniel Bernstein M.D. on 10/01/2016 at 8:25 Approved by: Daniel Bernstein M.D. on 10/01/2016 at 8:25
[2016-10-01] MEDS ORDERED: Insulin GLARgine 100 Unit/mL Syringe SUBQ ONE (08:30)
[2016-10-01] MEDS: Venlafaxine XR 37.5 mg ER24 Capsule PO SCH (08:30)
[2016-10-01] MEDS: Morphine ER 15 mg (MS Contin) Tablet PO SCH ×2 (08:30→20:05)
[2016-10-01] MEDS ORDERED: Potassium Phos (mEq) Inj 40 MEQ in Dextrose 5% 500 ML IV ONE (08:35)
--- NOTE | 2016-10-01 08:35 | NUR ---
NUTRITION FOLLOW-UP: ASSESS: 51 YO female admitted to CCU with acute hypoxic respiratory failure, on BiPAP alternating with high-flow O2; left lung abscess; respiratory coronavirus; viral pneumonia; streptococcal bacteremia. Chest tube removed yesterday. The patient continues somnolent and nauseous; low threshold for intubation at this point. Her respiratory status is slightly worse, per pulmonology. Palliative team signed off, as patient / family are clear with their goals of care at this time. Oncology unable to offer additional palliative chemotherapy at this time. The patient is not a candidate for a lobectomy due to her debilitated status. RD spoke with about pts PO intake/ appetite. reports that pt sometimes has n/v and her appetite is not very good. Usually she can only tolerate ~25% of a meal. Due to partial requirement for BiPAP, enteral feeding not ideal route of nutrition support at this time. TPN initiated yesterday and appears well tolerated at 33% goal macronutrient rate. Code status: full. PMHx, Breast cancer, stage IV uterine cancer with mets status post palliative chemotherapy, cirrhosis, breast ca, T2DM. LABS: Reviewed. Cr 0.41, Glu 314, Phos 2.3, Alb 2.2. MEDS:Reviewed. Insulin, reglan, morphine, dilaudid, lopressor. GI: No BM x 4 D. SKIN: Pawan 14. WT:83.6 kg, BMI 34.0 kg/m2. Admit weight: 75.8kg, BMI 31.6kg/m2 DIET: Heart healthy consistent carbohydrate ordered; however, pt. unable to tolerate PO intake at this time. TPN:80 g dextrose, 40 g amino acid, 15 g lipid, meeting approx. 33% nutrient needs. EST. NEEDS: (CANCER, BMI): Kcals: 1670-1895kcal/day (22-25kcal/kg) Pro: 75-90g/day (1.0-1.2g/kg) Fluid: ~1895ml/day (25cc/kg) NUTRITION DIAGNOSIS: 1) Decreased / inadequate PO intake related to chronic disease as evidence by reported decreased appetite and n/v due to chemo and chronic disease - PERSISTS. 2) Increased nutrient needs related to advanced cancer - PERSISTS. NUTRITION INTERVENTION: 1) TPN recommendation follows: advance macronutrient to 66% goal macronutrient rate today: 160 g dextrose, 80 g amino acid, 30 g lipid. Goal macronutrient rate: 240 g dextrose, 115 g amino acids, 50 g lipids (which will provide 1776 kcal, 115 g protein and meet 100% nutrient needs). Refeeding is a significant risk for this patient; however, at this time, she appears to be tolerating TPN well. 2)In the event pt. remains full code, recommend hospitalist and/or oncology discuss PEG tube placement to mitigate long-term feeding issues. 3)Recommend advance diet and add supplements when medically appropriate. 4)RD spoke with about ways to increase kcal/pro intake with each bite. Encouraged eating smaller more frequent meals and provided high kcal/pro recipe book. Pt does not like Ensure or Glucerna 5) Pt is not appropriate for DM education. Pt's stated that they are already aware of diet but at this point the pt is just trying to eat and not worry so much about following the DM diet. MONITOR / EVAL: TPN advance / tolerance, NPO status, BIPAP requirement, labs, wt, GI, POC, nutrition status. Will continue to monitor per high nutrition risk guidelines.
[2016-10-01] MEDS: VORICONAZOLE IV SCH ×2 (08:38→20:40)
[2016-10-01] MEDS: SODIUM CHLORIDE 0.9% IV SCH ×2 (08:38→20:40)
[2016-10-01] MEDS: Ondansetron 2 mg/mL 2 mL Inj IVPUSH PRN ×2 (08:39→15:31)
[2016-10-01] MEDS: 0.9% Sodium Chloride 250 ML IV SCH ×2 (08:39→11:11)
[2016-10-01] MEDS: Insulin LISPRO 300 Unit/3 mL Inj SUBQ SCH ×4 (08:44→21:04)
--- NOTE | 2016-10-01 10:21 | PCM.PNMED ---
Subjective Date of Service Oct 01, 2016 Subjective She is on BiPAP this morning. She was off for a good portion of the day but on since midnight. She is still nauseated. No chest pain. She is not confused. She denies any abdominal pain or diarrhea. No hemoptysis Exam Vital Signs Vital Sign - Last Date Time Temp Pulse Resp B/P Pulse Ox O2 Delivery O2 Flow Rate FiO2 10/01/16 09:39 38 93 HF NC 70 10/01/16 09:06 106 10/01/16 08:23 36.8 124/73 10/01/16 00:29 30 Intake and Output 09/30/16 09/30/16 10/01/16 Cumulative From/Thru 15:00 23:00 07:00 09/27/16 16:52 - 10/01/16 05:56 Intake Total 1624 ml 899 ml 93892 ml Output Total 2600 ml 1250 ml 7905 ml Balance -976 ml -351 ml 4957 ml Intake Oral 250 ml 250 ml IV Total 1374 ml 260 ml 61754 ml TPN/PPN 639 ml 639 ml Packed Cells 364 ml Output Urine Total 2600 ml 1250 ml 7850 ml Chest Tube Drainage Total 55 ml # Bowel Movements 0 Exam Oriented 3, lethargic. Fluent speech. Chronically ill. Cachectic Lungs with expiratory wheezing and rhonchi. On BiPAP Heart is regular without murmur gallop or rub Abdomen is soft and nontender Extremities with 1+ edema, good pedal pulses IVs and Medications Medications Reviewed: Medications were reviewed in detail Lab and Diagnostics Result Diagram: 10/01/16 0425 10/01/16 0425 Assessment & Plan Patient is a 51 year old female with a history of stage IV uterine cancer with 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 She presented to [facility] on 09/27/16 from Urgent Care with approx. 1 week history of productive cough and increasing confusion. CT of the chest notable for increased size of left lung mass now appearing as a cavitary lesion with the presence of an air fluid level - suspicious for empyema. Chest tube placed 09/28/16 in an attempt to drain the area; has been unsuccessful this far. Pulmonology consulted for increasing O2 needs and further evaluation of suspected empyema. Hospital day #3. 1. Acute hypoxic respiratory failure. POA. Will continue use BiPAP as needed. Have had the level of care discussions and patient will be intubation with ventilatory support if she requires this. - She appears to be clinically stable, but tenuous. She is intubation and ventilation if required. Level of care with this confirmed that she and her . 2. Left lung abscess. POA. -Patient is being followed by pulmonary critical care as well as infectious disease. We will continue our broad spectrum antimicrobial and antifungal therapy for presumed lung abscess. At this point the consensus is that there is no role for percutaneous drainage and drainage for fear of seeding the pleural space or developing a fistula. We will repeat chest x-ray today. No changes to antimicrobials and antifungals. No new culture data. 3. Severe Sepsis. POA. This is improved. - Criteria met: tachycardia (119), tachypnea (28), leukocytosis (15), pulmonary source, lactic acidosis with acute kidney injury and altered mental status. Continuing treatment of the primary source of infection, lung abscess. Follow cultures. The patient did have a respiratory PCR positive RSV and uribe viruses as well. Droplet isolation. 4. Strep bacteremia. One out of 4. She is unclear in terms of clinical significance and may be contaminant. Will follow cultures. 5. Anemia, stable. - Etiology unknown with no obvious source of bleeding. Hemolysis workup ordered and pending. - Received 2 units PRBC's on 09/28/16. - No evidence of clinical bleeding. We will continue to follow carefully. 6. Stage IV endometrial undifferentiated carcinoma. - Oncology is involved. This point we are continuing to treat active reversible problems. 7. Nutrition. -The patient requires increased caloric support but is unable to have antral feedings were increased by mouth intake because of BiPAP support that has been required all of the time. We will follow her clinical status carefully. Will start TPN. 8. Hyperglycemia. Uptitrate Lantus and given additional Lantus this morning. Continue correctional lispro. 9. Hypernatremia,We will address her free water deficit with TPN formulation VTE Mechanical Devices: Intermittant Pneumatic CD Resuscitation Status: CPR: Attempt Resuscitation Time spent 25 minute Chavo Lacey MD Oct 01, 2016 10:20
--- NOTE | 2016-10-01 10:38 | PROG NOTE ---
[address] [address] PROGRESS NOTE PATIENT: ORLY GARCIA : 1965 MR#: [id number] ADMIT: 09/27/2016 JOB ID: [id number] DATE: 10/01/2016 PULMONARY CRITICAL CARE PROGRESS NOTE: The patient is a 51-year-old woman with stage 4 uterine carcinoma with recurrence, cirrhosis with portal hypertension, admitted with acute hypoxic respiratory failure, left lung abscess, strep bacteremia, and RSV/uribe virus viral pneumonia. INTERVAL HISTORY: She continues to be tenuous from a respiratory standpoint, alternating BiPAP 20/10 with high-flow nasal cannula at 70% FiO2. At this time she is on the nasal cannula but has been on BiPAP all night. She is lethargic but answering questions very briefly and denies any pain at this time. She does have shortness of breath. REVIEW OF SYSTEMS: As above. No fevers, chills. PHYSICAL EXAMINATION: Vital signs reviewed. Afebrile, pulse 113, respirations 33, BP 124/73, sats 93% on 70% high-flow nasal cannula. General: Chronically ill-appearing woman who appears who appears older than stated age. She is slightly tachypneic at rest. Lethargic but answering some questions. Chest: Clear on the right and absent breath sounds on the left upper zone. LABORATORIES: Reviewed. WBC is 9.4, hemoglobin 10, platelets 96 down from 250 on admission. Chemistry: Sodium 142, potassium 3.5, creatinine 0.4. Procalcitonin is down to 8.4 from 35 on September 28. Cultures: No new data. IMAGING: Chest x-ray continues to show a large left cavitary lesion with air-fluid level. Bibasilar infiltrates appear similar to yesterday but perhaps the right seems a little worse even compared to yesterday. ASSESSMENT AND RECOMMENDATIONS: 1. Acute hypoxic respiratory failure. 2. Cirrhosis with portal hypertension. 3. Left lung abscess. 4. Respiratory syncytial virus and coronavirus pneumonia. 5. Streptococcal bacteremia. 6. Metastatic uterine carcinoma with recurrence. 7. Protein calorie malnutrition. 8. Hypernatremia has been resolved. RECOMMENDATIONS: A 51-year-old woman with metastatic uterine carcinoma with recent recurrence admitted with large left lung abscess and RSV coronavirus pneumonia, streptococcal bacteremia. She continues to be tenuous from a respiratory standpoint, alternating BiPAP and high-flow nasal cannula at 70% FiO2. She has continued to be tachypneic with respiratory rates usually in the mid 30s. Chest x-ray looked a little worse so I spoke with Dr. Mixon and with pharmacy and the plan is to initiate her on ribavirin today. Typically treatment for RSV pneumonia is only indicated with ribavirin in severely immunocompromised patients such as those with a bone marrow transplant or other solid organ transplants. However, since we have nothing else to offer at this point for the patient, we are going to go ahead with ribavirin since the risks/side effects are pretty minimal. From a lung abscess standpoint there has been some conversation about whether this is all abscess or abscess overlying a cavitary metastasis. I still suspect that this may have started out as a metastasis and then progressed to a superinfection with lung abscess given the timing of the appearance of a small nodule in July that progressed to this size now. However, since there is not much we can do from an intervention standpoint at this time, we will go ahead and continue with meropenem and see if she improves with antibiotics. She is not really a surgical candidate for resection. I would be concerned about her developing any hepatic encephalopathy. She is not really taking any p.o. but there may be some role to try to get her to take a little bit of lactulose to help prevent this since she does have known portal hypertension. Her platelet count is continuing to drop so we will stop the enoxaparin and heparin and check a HIT antibody in the meantime. She is on appropriate GI prophylaxis. She is a FULL CODE according to the patient and her , who indicated very clearly that she does want to be intubated if the need arises. TIME: Critical care time 50 minutes.
--- NOTE | 2016-10-01 10:55 | NUR ---
Evaluation completed. Please go to "Notes" then click on "Assessments and Notes" (bottom left corner of screen). Then select appropriate discipline tab on top of screen.
--- NOTE | 2016-10-01 16:21 | PCM.PHAPRO ---
Progress Date of Service: Oct 01, 2016 TPN PARENTERAL NUTRITION ORDERS 2 - Standard Hang Time: 2100 Substrates Total kcal: 1164 AMINO ACIDS 80 g DEXTROSE 160 g Total Volume (mL): 1800 LIPIDS 30 g Sterile Water for Injection QS mL To Infuse Over (hrs): 24 Total Volume 1800 mL At at a rate of (mL/hr): 75 Additives Sodium Chloride 40 mEq "typical" daily requirements Sodium Acetate 20 mEq Sodium 50-120mEq Potassium Chloride 60 mEq Potassium 60-120mEq Potassium Phosphate 40 mEq Phosphate 20-40mEq Calcium Gluconate mEq Magnesium 8-32mEq Magnesium Sulfate 16 mEq Calcium 9-22mEq Acetate* 80-120mEq Chloride* 80-120mEq Regular Insulin 20 units *Depending on acid-base status Famotidine mg Multivitamins 1 std dose Insulin Regimen Trace Elements 1 std dose none Thiamine mg Regular Low Intensity Subcut Folic Acid mg Regular Medium Intensity Subcut Ascorbic Acid mg Regular High Intensity Subcut Regular Insulin Infusion Other: Dusty Love Oct 01, 2016 16:21
--- NOTE | 2016-10-01 17:59 | NUR ---
respiratory/mentation/metabolic/pain Decompensates with minimal exertion. While sitting on edge of bed late this afternoon pt desaturated down to mid 80s while on HF NC with 70% fi02, unable to recover with rest, BiPAP placed and saturation returned to mid 90s. Continues on BiPAP. Tachypneic, RR 30s. Lung sounds as noted. ST per secured entrance monitor. Oriented to person, place and occasionally time. Blood glucose elevated, Dr Lacey notified and lantus ordered. PRN morphine and dilaudid managing left flank/rib pain. Spouse remains at bedside.
[2016-10-01] MEDS ORDERED: Insulin GLARgine 100 Unit/mL Syringe SUBQ SCH (21:00)
[2016-10-01] MEDS: Total Parenteral Nutrition 1 BAG IV SCH (21:24)
[2016-10-02] VITALS (15 sets, daily range): BP systolic 98–140; BP diastolic 0–88; PULSE 105–129; RESP 28–47; O2SAT 90–100
[2016-10-02] MEDS: Meropenem Inj 1,000 MG in IV Premix 1 EACH IV SCH (00:11)
[2016-10-02] MEDS: Dextrose 5% 1,000 ML IV SCH ×2 (01:15→19:28)
[2016-10-02] MEDS: MetoCLOpramide 5 mg/mL 2 mL Inj IVPUSH PRN (02:17)
[2016-10-02] MEDS: 0.9% Sodium Chloride 250 ML IV SCH ×2 (04:00→04:08)
[2016-10-02] MEDS: Insulin LISPRO 300 Unit/3 mL Inj SUBQ SCH ×2 (04:08→11:20)
[2016-10-02 04:30] LABS: BASOPHILS % (AUTO) 0.1 % (0-3); EOSINOPHILS % (AUTO) 0.8 % (0-5); Mean Corpuscular Hemoglobin 25.8 pg (27.0-35.0); Mean Corpuscular Volume 80.4 fL (81-100); Platelet Count 88 bil/L (150-400)
[2016-10-02 04:53] LABS: Magnesium 1.5 mg/dL (1.6-2.6); Phosphorus 2.2 mg/dL (2.5-4.9)
[2016-10-02] MEDS: HYDROmorphone 1 mg/mL Inj IVPUSH PRN (05:08)
--- NOTE | 2016-10-02 05:16 | NUR ---
Respiratory, Pain, anxiety Vs as noted. Becomes short of breath with any activity. Acutely anxious at times with desaturations to 80s. Treated with Morphine, Ativan and Dilaudid with some improvement. Able to take Oxycontin, Neurontin and Effexor at hs with several hours rest. 0400 Respiratory rates up to 50 this am on Bipap. Placed on 70% hiflow with desats to 80% then returned to bipap with sats mid 90s. Respiratory rates still 40s to 50s with complaints of "cant breath". Bipap settings changed from 15/10 to 20/10 with respiratory rates now hi 30s and hr down to 110s from 120s.
--- NOTE | 2016-10-02 07:01 | NUR ---
Respiratory/cardiac/neuro Remains on BiPAP 16/10 with 90% fi02. Tachypneic, RR 40s to 50s. Sp02 > 92%. Lungs moderately decreased with faint expiratory wheezes on left. ABG drawn. Increased confusion & lethargy this AM. ST 120s. Normotensive. Will continue to monitor.
--- NOTE | 2016-10-02 07:15 | ABG ---
DateTimeAnalyzed 07:11:00 -_ pH ____7.421 - 7.350 7.450 pCO2 ___47.9__ -mmHg 35.0 45.0 pO2 ___64.4__ -mmHg 69.0 116 HCO3- ___30.6__ -mmol/L 22.0 26.0 ABE ____5.8__ -mmol/L -2.0 2.0 tHb ___10.3__ -g/dL O2Hb ___91.2__ -% COHb ____1.4__ -% MetHb ____0.8__ -% sO2 ___93.3__ -% FIO2 ___90.0__ -% CPAP ___18.0__ -cmH2O PEEP ___10.0__ -cmH2O Set_RR ___16.0__ -b/min Vt __450.0__ -L Drawn By as - Date/Time Notified____ 07:15:00 -_ Spontaneous_RR ___42.0__ -b/min Oxygen Device 1 ____BIPAP - Notified By ams - Notified Whom rn leonor herlickson -__ B 752 -mmHg tO2 ___13.3__ -Vol% Chavo test _Positive -
[2016-10-02] MEDS: Venlafaxine XR 37.5 mg ER24 Capsule PO SCH (07:31)
[2016-10-02] MEDS: Morphine ER 15 mg (MS Contin) Tablet PO SCH ×2 (07:31→19:27)
[2016-10-02] MEDS: Potassium Chloride 20 mEq SR Tablet PO SCH (07:32)
[2016-10-02] MEDS ORDERED: Insulin GLARgine 100 Unit/mL Syringe SUBQ ONE (08:10)
[2016-10-02] MEDS ORDERED: Meropenem Inj 2,000 MG in IV Premix 1 EACH IV SCH (08:30)
--- NOTE | 2016-10-02 08:39 | PCM.PNMED ---
Subjective Date of Service Oct 02, 2016 Subjective She is somnolent and on BiPAP. She states she is comfortable Exam Vital Signs Vital Sign - Last Date Time Temp Pulse Resp B/P Pulse Ox O2 Delivery O2 Flow Rate FiO2 10/02/16 07:19 CPAP/BIPAP 10/02/16 07:18 120 10/02/16 07:15 36.6 47 137/72 94 90 10/01/16 12:18 30 Intake and Output 10/01/16 10/01/16 10/02/16 Cumulative From/Thru 15:00 23:00 07:00 09/27/16 16:52 - 10/02/16 05:01 Intake Total 992 ml 1079 ml 61632 ml Output Total 1350 ml 1200 ml 06801 ml Balance -358 ml -121 ml 4478 ml Intake Oral 150 ml 400 ml IV Total 243 ml 21170 ml TPN/PPN 842 ml 836 ml 2317 ml Packed Cells 364 ml Output Urine Total 1350 ml 1200 ml 98295 ml Chest Tube Drainage Total 55 ml # Bowel Movements 0 Exam Somnolent. Comfortable. On BiPAP. Anicteric sclerae. Neck supple Lungs with 3 out of 4 breath sounds. She is tachypneic. Her tacrolimus in the mid threes. Heart is regular.murmur, tachycardic Abdomen is soft extremities with 1+ edema. 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 She presented to [facility] on 09/27/16 from Urgent Care with approx. 1 week history of productive cough and increasing confusion. CT of the chest notable for increased size of left lung mass now appearing as a cavitary lesion with the presence of an air fluid level - suspicious for empyema. Chest tube placed 09/28/16 in an attempt to drain the area; has been unsuccessful this far. Pulmonology consulted for increasing O2 needs and further evaluation of suspected empyema. Hospital day #3. 1. Acute hypoxic respiratory failure. POA. Will continue use BiPAP as needed. Have had the level of care discussions and patient will be intubation with ventilatory support if she requires this. -The patient appears to be clinically decompensating today. She does have strep aeginosis. 2. Left lung abscess. POA. Her fungal testing is negative, will stop voriconazole. She is on Ribavarin for RSV but is having difficulty taking this orally. Will continue her antibiotics for her strep infection. Her prognosis is very poor. 3. Severe Sepsis. POA. He has decompensated over the last 24-36 hours. She is now becoming hypotensive. We will increase fluids. She may need pressors. She is also having increased respiratory distress. We will have a discussion regarding intubation versus comfort measures with her family today. 4. Strep bacteremia. Antimicrobials as above.. 5. Anemia, stable. - Etiology unknown with no obvious source of bleeding. Hemolysis workup ordered and pending. - Received 2 units PRBC's on 09/28/16. - No evidence of clinical bleeding. We will continue to follow carefully. This remained stable. 6. Stage IV endometrial undifferentiated carcinoma. - Oncology is involved. This point we are continuing to treat active reversible problems. 7. Nutrition. -The patient requires increased caloric support but is unable to have antral feedings were increased by mouth intake because of BiPAP support that has been required all of the time. We will follow her clinical status carefully. Continue TPN 8. Hyperglycemia. We will continue the up titrate Lantus and correctional lispro. 9. Hypernatremia, improved Pain Evaluation: Adequate Pain Control VTE Mechanical Devices: Intermittant Pneumatic CD Resuscitation Status: CPR: Attempt Resuscitation Time spent 25 minutes Chavo Lacey MD Oct 02, 2016 08:39
[2016-10-02] MEDS ORDERED: DEXTROSE 5% IV SCH (09:03)
[2016-10-02] MEDS ORDERED: MEROPENEM IV SCH (09:03)
[2016-10-02] MEDS: Meropenem Inj 2,000 MG in 0.9% Sodium Chloride 100 ML IV SCH ×2 (09:48→17:30)
[2016-10-02] MEDS: Ondansetron 2 mg/mL 2 mL Inj IVPUSH PRN (10:08)
--- NOTE | 2016-10-02 10:46 | DRSVH ---
PROCEDURE: X-RAY CHEST ONE VIEW, PORTABLE ([id number]) INDICATIONS: shortness of breath TECHNIQUE: One view of the chest was acquired. COMPARISON: [facility], CR, XR CHEST 1VW (PORTABLE), 10/01/2016, 3:49. FINDINGS: Surgical changes and devices: The bander hand leads and oxygen tubing are seen over the chest. Th ere is a Port-A-Cath from a right subclavian approach with the tip at the junction of the innominate veins. This is unchanged. Lungs and pleura: Bilateral patchy areas of density in the lower lung nelson are considered unchanged . The loculated air collection in the periphery of the left midlung field is unchanged. Mediastinum: Mediastinal contours appear normal. Heart size is normal. Bones and chest wall: No suspicious bony lesions. Overlying soft tissues appear unremarkable. IMPRESSION: No change is seen in the appearance of the pneumonias bilaterally or the pleural-based ve rsus lung parenchymal loculated air collection in the left chest. Dictated by: Gómez Ocasio M.D. on 10/02/2016 at 10:43 Approved by: Gómez Ocasio M.D. on 10/02/2016 at 10:43
[2016-10-02] MEDS ORDERED: Furosemide 10 mg/mL 2 mL Inj IVPUSH ONE (10:55)
--- NOTE | 2016-10-02 12:30 | PROG NOTE ---
[address] [address] PROGRESS NOTE PATIENT: ORLY GARCIA : 1965 MR#: [id number] ADMIT: 09/27/2016 JOB ID: [id number] DATE: 10/02/2016 INFECTIOUS DISEASE FOLLOWUP NOTE: REASON FOR FOLLOWUP: Strep anginosus bacteremia with associated lung abscess as well as RSV pneumonia. INTERVAL HISTORY: Over the past 48 hours since I have last seen the patient she has remained tenuous on BiPAP. The patient this morning reports she is quite short of breath and that does not seem to be getting better or worse. She denies abdominal pain, nausea, or vomiting this morning but does relate that it is distressing to be so short of breath for so long. She also regret she cannot talk more or interact more as she is dependent on the BiPAP and very high flow oxygen which limits her ability to communicate with physicians and others. No fevers or chills reported. PHYSICAL EXAMINATION: Reveals a woman sitting up about 40 degrees in bed in the ICU on BiPAP 90% FiO2. She continues to be afebrile temperature 36.6, pulse 120-130. Respiratory rate 20s to 40s, currently about 40 when I examine the patient. Blood pressure is reasonable 137/72, and she is saturating well, but as mentioned she is very tachypneic on 90% on the BiPAP. Examination of the eyes reveals no conjunctivitis. Oral cavity cannot be examined because of the BiPAP. The neck is supple. Lines in good position, without evidence of inflammation. Examination of the lungs reveals considerable rales, more on the left than the right. There is also some decreased breath sounds over areas of the left lung. Abdomen is soft and nontender. No skin rashes noted. LABORATORIES: Include a white count now 7500. Recall that it was 15,000 when she came in. The diff is now relatively normal as the bands have resolved creatinine 0.35. Liver function tests are normal. Procalcitonin was 36 on September 29 and 8 on October 01, showing a significant decrease. Fungitell and galactomannan have returned as negative. MRSA screen negative. Respiratory viral PCR was positive for uribe virus as well as respiratory syncytial virus. Two of four blood cultures on admission grew Strep anginosus group. Chest x-rays show continued infiltrates with left-sided cavity as before. IMPRESSION: Of this is a relatively classic case of a Strep anginosus or Strep milleri group organism producing pulmonary infections. Strep anginosus group are never contaminants when found in the blood, as this one was, and this demonstrates that the lung abscess is due primarily, if not entirely, to the strep anginosus infection. These are variants of Strep viridans which are prone to cause tremendous intra-abdominal, intrathoracic, or occasionally brain abscesses. Very large and extensive abscesses due to Strep anginosus group of organisms such as this usually require some form of surgical drainage or debridement. The relevant recent article has been placed on the chart. The role of RSV in this infection remains unclear. I have been in contact over the weekend with the pharmacy and we have located a supply of ribavirin which is now available. Unfortunately, the patient has not received her first two scheduled doses of ribavirin due to gastrointestinal complaints but if possible I think it would be reasonable to start the patient on ribavirin 1 g p.o. b.i.d. Note that the literature is not clear regarding the use of ribavirin orally for RSV-related infiltrates in people who are not profoundly immunosuppressed, such as transplant patients, but I do think its use is reasonable in this case if the patient can tolerate it. RECOMMENDATIONS: 1. We await the susceptibilities on the Strep anginosus as well. Will likely switch to ceftriaxone or penicillin tomorrow. For now we can continue with meropenem. 2. I would go ahead and stop the voriconazole as we have an excellent explanation for everything that has happened. 3. I would try to use the ribavirin in this patient if it is possible to get her to tolerate it. 4. This case discussed this morning in person with Dr. Chavo Lacey who is the hospitalist managing this patient in the ICU. 5. The patient may require intubation given her extraordinarily elevated respiratory rate. 6. Will continue to follow this very complex patient with you.
--- NOTE | 2016-10-02 12:30 | NUR ---
Intubation/Cardiac Respiratory distress, no improvement noted with BiPAP. Consent obtained for intubation. 130mg propofol and 100mg succinylcholine administered for intubation. ET placed 22 at the teeth by anesthesia. Color change noted. Chest rise observed, equal breath sounds auscultated. Chest XRAY ordered. Hypotensive, NS bolus initiated and 0.1mg phenylephrine administered. Will continue to monitor.
[2016-10-02] MEDS ORDERED: 0.9% Sodium Chloride 1,000 ML ONE (12:33)
[2016-10-02] MEDS ORDERED: Sodium Chloride LOK Flush 10 mL Syringe IVFLUSH PRN ×2 (12:40)
[2016-10-02] MEDS ORDERED: 0.9% Sodium Chloride 1,000 ML IV ONE (12:55)
[2016-10-02] MEDS ORDERED: fentaNYL-PF 50 mCg/mL 2 mL Inj ONE (13:05)
[2016-10-02] MEDS: Propofol Inj 1,000,000 MCG in IV Premix 1 EACH IV SCH ×4 (13:13→23:17)
--- NOTE | 2016-10-02 13:26 | DRSVH ---
PROCEDURE: X-RAY CHEST ONE VIEW, PORTABLE ([id number]) INDICATIONS: Post intubation to verify ETT placement TECHNIQUE: One view of the chest was acquired. COMPARISON: None. FINDINGS: Surgical changes and devices: Endotracheal tube is 1.6 cm above the mayda. Tube would benefit from b eing pulled back 2-3 cm. Port-A-Cath from the right chest the tip at the junction of the innominate v eins. athletic monitor leads are seen over the chest. Lungs and pleura: There are bilateral patchy areas of density consistent with pneumonia. More on the right than on the left. Also on the left is a 11 cm in greatest dimension cavitary lesion either in t he periphery of the lung parenchyma are situated in the pleural space with a thick wall. Abscess or d rainable edema I think would be more likely than necrotic tumor. Mediastinum: Mediastinal contours appear normal. Heart size is normal. Bones and chest wall: No suspicious bony lesions. Overlying soft tissues appear unremarkable. IMPRESSION: Endotracheal tube 1.6 cm above the mayda. Bilateral right greater than left patchy areas of density consistent with pneumonia in the lung bases . The persistent and unchanged 11 cm cavitary lesion in the periphery of the left midlung field Dictated by: Gómez Ocasio M.D. on 10/02/2016 at 13:25 report regarding position of endotracheal t ube called to the ICU at the time of this dictation. Approved by: Gómez Ocasio M.D. on 10/02/2016 at 13:25
[2016-10-02] MEDS: fentaNYL 2,500 mCg/250 mL 2,500 MCG in IV Premix 1 EACH IV PRN (13:38)
--- NOTE | 2016-10-02 14:43 | PROG NOTE ---
[address] [address] PROGRESS NOTE PATIENT: ORLY GARCIA : 1965 MR#: [id number] ADMIT: 09/27/2016 JOB ID: [id number] DATE: 10/02/2016 PULMONARY CRITICAL CARE PROGRESS NOTE: The patient is a 51-year-old woman with metastatic uterine carcinoma and cirrhosis with portal hypertension, admitted with acute hypoxic respiratory failure, left lung abscess, Strep anginosus bacteremia, and RSV/uribe virus pneumonia. INTERVAL HISTORY: She continues to do poorly on the BiPAP and is now up to 90% FiO2 alternating with high-flow. She is lethargic and not really able to give me a review of systems. REVIEW OF SYSTEMS: As above. PHYSICAL EXAMINATION: Labs showed WBC 7.5, hemoglobin 10, platelets 88. Chemistry also reviewed. Procalcitonin 8.4 yesterday, down from 35 previously. No new culture data. A chest x-ray shows persistent large left lung abscess and bibasilar dense infiltrates as before. ASSESSMENT AND RECOMMENDATIONS: 1. Acute hypoxic respiratory failure. 2. Cirrhosis with portal hypertension. 3. Left lung abscess. 4. Strep anginosus bacteremia. 5. RSV and uribe virus pneumonia. 6. Metastatic uterine carcinoma. 7. Protein calorie malnutrition. RECOMMENDATION: A 51-year-old woman with metastatic uterine carcinoma presenting with large left lung abscess and RSV, uribe virus pneumonia and Streptococcus anginosus bacteremia. She continues to do poorly from a respiratory standpoint and it is starting to look as if it is only a matter of time before she gets intubated. Currently she is alternating BiPAP and high-flow nasal cannula. I really do not have anything else to offer as far as treatment goes that would help improve her chances of recovering from this. She is currently getting meropenem and ribavirin was added yesterday, but she has not been able to get any doses because this is a p.o. medicine and involves taking five capsules twice daily. I spoke to the nurse and asked them to be more aggressive about trying to give her this medication because it is the only other thing we can add to help her. I had a darlene conversation with her and explained that, even with mechanical ventilation, I am not sure that she is going to recover from this illness. He understands but would like a trial of mechanical ventilation. My recommendation to him was that if at 3-5 days after mechanical ventilation she was not looking like she would come off the vent, that we should consider transition to comfort measures, and he understands this. Dr. Bautista takes over the pulmonary service tomorrow. TIME: Critical care time 45 minutes.
--- NOTE | 2016-10-02 15:08 | ABG ---
DateTimeAnalyzed 15:03:00 -_ pH ____7.402 - 7.350 7.450 pCO2 ___51.1__ -mmHg 35.0 45.0 pO2 ___72.4__ -mmHg 69.0 116 HCO3- ___31.1__ -mmol/L 22.0 26.0 ABE ____5.8__ -mmol/L -2.0 2.0 tHb ___10.7__ -g/dL O2Hb ___92.3__ -% COHb ____1.4__ -% MetHb ____1.0__ -% sO2 ___94.6__ -% FIO2 __100.0__ -% PEEP ___10.0__ -cmH2O Set_RR ___28.0__ -b/min Vt __300.0__ -L Drawn By as - Date/Time Notified____ 15:08:00 -_ Spontaneous_RR ___28.0__ -b/min Oxygen Device 1 VENTILATOR - Notified By ams - Notified Whom mary keiko, rn - B 743 -mmHg tO2 ___13.9__ -Vol% Chavo test _Positive -
--- NOTE | 2016-10-02 15:19 | DRSVH ---
PROCEDURE: X-RAY PICC LINE PLACEMENT BY NURSE ([id number]) INDICATIONS: access COMPARISON: None. FINDINGS: PICC was placed by the intravenous therapy team from the left side. Fluoroscopic spot nelsy m demonstrates tip of PICC in the superior vena cava above the right atrium. IMPRESSION: Tip of PICC lies within the superior vena cava above the right atrium. Dictated by: Gómez Ocasio M.D. on 10/02/2016 at 15:17 Approved by: Gómez Ocasio M.D. on 10/02/2016 at 15:17
--- NOTE | 2016-10-02 15:22 | PROCED ---
[address] [address] PROCEDURE NOTE PATIENT: ORLY GARCIA : 1965 MR#: [id number] ADMIT: 09/27/2016 JOB ID: [id number] DATE OF SERVICE: POSTOPERATIVE DIAGNOSIS(ES): PREOPERATIVE DIAGNOSIS(ES): SURGEON: Horacio Erickson MD. I was asked to see the patient by the hospitalist, Dr. Larson, secondary to the patient's respiratory failure. When I saw the patient, she was satting in the mid 90s on a BiPAP machine on 100% FiO2. After reviewing the patient's history and performing a brief physical as well as obtaining informed consent from the patient's , who is the power of attorney recruiter, the decision was made to place an endotracheal airway for acute respiratory failure. The patient was pre-oxygenated after which rapid sequence induction was performed using propofol 130 mg followed by succinylcholine 100 mg. Direct laryngoscopy was performed with a Rachel 3 blade and there was a grade 1 view of the cords that was unimpeded by any surrounding detritus. A 7.5 cuffed Hi-lo endotracheal tube was placed and qualitative end-tidal CO2 was noted. Tube was secured at 21 cm at the lips. Chest x-ray is pending to confirm tube position. Patient tolerated the procedure relatively well. She had some mild hypotension post induction which was responding to fluids and 100 mcg of phenylephrine.
--- NOTE | 2016-10-02 15:35 | PCM.PHAPRO ---
Progress Date of Service: Oct 02, 2016 TPN PARENTERAL NUTRITION ORDERS 4 - Standard Hang Time: 2100 Substrates Total kcal: 1164 AMINO ACIDS 80 g DEXTROSE 160 g Total Volume (mL): 1800 LIPIDS 30 g Sterile Water for Injection QS mL To Infuse Over (hrs): 24 Total Volume 1800 mL At at a rate of (mL/hr): 75 Additives Sodium Chloride 40 mEq "typical" daily requirements Sodium Acetate 20 mEq Sodium 50-120mEq Potassium Chloride 60 mEq Potassium 60-120mEq Potassium Phosphate 40 mEq Phosphate 20-40mEq Calcium Gluconate mEq Magnesium 8-32mEq Magnesium Sulfate 16 mEq Calcium 9-22mEq Acetate* 80-120mEq Chloride* 80-120mEq Regular Insulin 30 units *Depending on acid-base status Famotidine mg Multivitamins 1 std dose Insulin Regimen Trace Elements 1 std dose none Thiamine mg Regular Low Intensity Subcut Folic Acid mg Regular Medium Intensity Subcut Ascorbic Acid mg Regular High Intensity Subcut Dusty Love Oct 02, 2016 15:35
[2016-10-02] MEDS ORDERED: Acetaminophen IV 1,000 MG in IV Premix 1 EACH IV PRN (17:50)
[2016-10-02] MEDS: Insulin Human REGular Inj 100 UNIT in 0.9% Sodium Chloride-Pha MIX 100 ML IV SCH (18:27)
--- NOTE | 2016-10-02 18:49 | NUR ---
Respiratory/cardiac/neuro/sedation Continues on PRVC with 100% fi02 & PEEP of 10. Oxygen saturation maintained > 95%. Copious, clear oral secretions. Remains on propofol and fentanyl sedation for ventilator tolerance & pain control. ST per cardiac care nurse, HR 130s. Pressure stable, MAP >60. Bedside glucose 271, insulin gtt infusing per orders. Per pharmacy, unsafe to open ribavirin capsules and give down OG. Requested liquid form of ribavirin from pharmacy, will need to speak to plastic dolls mold filler in AM for approval. Febrile, axillary temperature of 38.7. Blood cultures ordered, lab notified of new orders. Dr Lacey contacted and updated on pt status, order given for IV Tylenol.
[2016-10-02] MEDS: Total Parenteral Nutrition 1 BAG IV SCH (19:56)
[2016-10-02] MEDS ORDERED: Insulin GLARgine 100 Unit/mL Syringe SUBQ SCH (21:00)
[2016-10-02] MEDS: Norepinephrine 8,000 mCg/250 mL D5W Premix IV SCH ×2 (22:55→23:16)
[2016-10-02] MEDS ORDERED: Pantoprazole 4 mg/mL 10 mL Inj IVPUSH ONE (22:55)
[2016-10-02 23:01] LABS: BASOPHILS % (AUTO) 0.1 % (0-3); EOSINOPHILS % (AUTO) 0.3 % (0-5); MONOCYTES % (AUTO) 9.4 % (4-12); Mean Corpuscular Hemoglobin 25.5 pg (27.0-35.0); Mean Corpuscular Volume 81.9 fL (81-100); NEUTROPHILS % (AUTO) 83.9 % (40-74); Platelet Count 66 bil/L (150-400)
[2016-10-02] MEDS ORDERED: 0.9% Sodium Chloride 500 ML ONE (23:12)
[2016-10-02] MEDS: Pantoprazole Inj 80 MG in 0.9% Sodium Chloride 80 ML IVPUSH SCH (23:16)
[2016-10-03] VITALS (18 sets, daily range): BP systolic 92–136; BP diastolic 51–72; PULSE 95–112; RESP 28–32; O2SAT 80–100
[2016-10-03 00:43] LABS: Magnesium 1.4 mg/dL (1.6-2.6); Phosphorus 2.4 mg/dL (2.5-4.9)
[2016-10-03] MEDS: Meropenem Inj 2,000 MG in 0.9% Sodium Chloride 100 ML IV SCH ×3 (01:20→17:49)
--- NOTE | 2016-10-03 01:22 | NUR ---
Hypotension/Temp/OG Pt hypotensive. Noted red streaks in OG tube and pink tinged urine. Pt also remains febrile despite IV acetaminophen and lukewarm bed bath. MD notified and labs drawn. Orders for IV protonix gtt with bolus, fluid bolus (CVP was 6), Levophed if needed to keep MAP >65, and stat labs received and implemented. Pt tolerated fluid bolus and CVP is currently 9. BP stable and temp currently 37.3. Will continue to monitor
--- NOTE | 2016-10-03 04:56 | ABG ---
DateTimeAnalyzed 04:51:00 -_ pH ____7.418 - 7.350 7.450 pCO2 ___48.7__ -mmHg 35.0 45.0 pO2 137 -mmHg 69.0 116 HCO3- ___30.8__ -mmol/L 22.0 26.0 ABE ____6.0__ -mmol/L -2.0 2.0 tHb ____8.7__ -g/dL O2Hb ___97.0__ -% COHb ____1.4__ -% MetHb ____0.8__ -% sO2 ___99.2__ -% FIO2 __100.0__ -% PRVC 28 - PEEP ___10.0__ -cmH2O Vt __300.0__ -L Drawn By blf - Date/Time Notified____ 04:55:00 -_ Spontaneous_RR ___34.0__ -b/min Oxygen Device 1 VENTILATOR - Notified By blf - Notified Whom MADELINE ROW RN - B 747 -mmHg tO2 ___12.2__ -Vol% Chavo test N/A -
[2016-10-03 05:42] LABS: BASOPHILS % (AUTO) 0.2 % (0-3); EOSINOPHILS % (AUTO) 0.8 % (0-5); MONOCYTES % (AUTO) 10.6 % (4-12); Mean Corpuscular Hemoglobin 25.4 pg (27.0-35.0); Mean Corpuscular Volume 82.1 fL (81-100); NEUTROPHILS % (AUTO) 80.2 % (40-74); Platelet Count 61 bil/L (150-400)
[2016-10-03] MEDS: Insulin Human REGular Inj 100 UNIT in 0.9% Sodium Chloride-Pha MIX 100 ML IV SCH ×2 (05:46→22:59)
[2016-10-03 06:21] LABS: Magnesium 1.5 mg/dL (1.6-2.6); Phosphorus 2.5 mg/dL (2.5-4.9)
[2016-10-03] MEDS: Propofol Inj 1,000,000 MCG in IV Premix 1 EACH IV SCH ×3 (06:46→20:24)
[2016-10-03] MEDS ORDERED: Magnesium Chloride SR 64 mg ER24 Tablet PO ONE (07:30)
[2016-10-03] MEDS ORDERED: Potassium Phos (mEq) Inj 40 MEQ in Dextrose 5% 500 ML IV ONE (07:30)
[2016-10-03] MEDS: Morphine ER 15 mg (MS Contin) Tablet PO SCH ×2 (07:41→19:12)
--- NOTE | 2016-10-03 07:43 | PCM.PNMED ---
Subjective Date of Service Oct 03, 2016 Subjective She is intubated and sedated. Exam Vital Signs Vital Sign - Last Date Time Temp Pulse Resp B/P Pulse Ox O2 Delivery O2 Flow Rate FiO2 10/03/16 07:36 37.5 105 28 114/64 100 Mechanical Ventilator 10/03/16 04:59 90 10/01/16 12:18 30 Intake and Output 10/02/16 10/02/16 10/03/16 Cumulative From/Thru 15:00 23:00 07:00 09/27/16 16:52 - 10/03/16 06:00 Intake Total 2121 ml 1692 ml 32452 ml Output Total 2200 ml 390 ml 89225 ml Balance -79 ml 1302 ml 5701 ml Intake Oral 400 ml IV Total 1400 ml 1197 ml 75650 ml TPN/PPN 721 ml 495 ml 3533 ml Packed Cells 364 ml Output Urine Total 2100 ml 340 ml 56935 ml Gastric Drainage Total 100 ml 50 ml 150 ml Chest Tube Drainage Total 55 ml # Bowel Movements 0 0 Exam Intubated, sedated. Endotracheal tube and OG tube are in place. Pupils symmetric Normal JVP Lungs are being actively ventilated, coarse sounds. No wheezing Heart is regular without murmur or gallop or rub Abdomen is soft non-distended Extremities with 1+ edema. The pedal and radial pulses. Skin is pale. 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 She presented to [facility] on 09/27/16 from Urgent Care with approx. 1 week history of productive cough and increasing confusion. CT of the chest notable for increased size of left lung mass now appearing as a cavitary lesion with the presence of an air fluid level - suspicious for empyema. Chest tube placed 09/28/16 in an attempt to drain the area; has been unsuccessful this far. Pulmonology consulted for increasing O2 needs and further evaluation of suspected empyema. Hospital day #3. 1. Acute hypoxic respiratory failure. POA. Patient was intubated yesterday. She remained stable with resolved L [place] but requires FiO2 of 0.90. 2. Left lung abscess and right lung pneumonia.. POA. Her fungal testing is negative, have stopped voriconazole and low nasal and. She is on Ribavarin for RSV but is having difficulty taking this orally, we will discuss trying to get the elixir which is nonformulary.. Will continue her antibiotics (meropenem) for her strep infection. Her prognosis is very poor. 3. Severe Sepsis. POA. He has decompensated over the last 24-36 hours. She remains tenuous with a lactate at 2.5 overnight we will repeat this morning. She is regarding multiple fluid boluses but no pressors at this point. 4. Strep bacteremia. Antimicrobials as above.. 5. Anemia, stable. - Etiology unknown with no obvious source of bleeding. Hemolysis workup ordered and pending. - Received 2 units PRBC's on 09/28/16. - No evidence of clinical bleeding. We will continue to follow carefully. This remained stable. 6. Stage IV endometrial undifferentiated carcinoma. - Oncology is involved. This point we are continuing to treat active reversible problems. 7. Nutrition. -The patient requires increased caloric support but is unable to have antral feedings were increased by mouth intake because of BiPAP support that has been required all of the time. We will follow her clinical status carefully. Continue TPN 8. Hyperglycemia. We will continue to titrate N insulin drip which was started yesterday. 9. Hypernatremia, improved 10. Thrombocytopenia. No Lovenox and Monday. We will follow. She is currently at about 90. 11. Some blood in her O G-tube aspirate. She is started on a Protonix drip yesterday we will follow closely clinically as well as following her hematocrit. Pain Evaluation: Adequate Pain Control VTE Mechanical Devices: Intermittant Pneumatic CD Resuscitation Status: CPR: Attempt Resuscitation Time spent 30 minutes. The case was discussed with pulmonology as well as the patient's at bedside. Chavo Lacey MD Oct 03, 2016 07:43
[2016-10-03] MEDS: Potassium Chloride 20 mEq SR Tablet PO SCH (08:00)
[2016-10-03] MEDS: 0.9% Sodium Chloride 250 ML IV SCH ×2 (08:20→11:11)
[2016-10-03] MEDS ORDERED: Magnesium Sulf 4 Gm/100 mL H2O 4 GM in IV Premix 1 EACH IV ONE (08:20)
[2016-10-03] MEDS: Venlafaxine XR 37.5 mg ER24 Capsule PO SCH (08:30)
--- NOTE | 2016-10-03 08:43 | DRSVH ---
PROCEDURE: X-RAY CHEST ONE VIEW, PORTABLE ([id number]) INDICATIONS: shortness of breath TECHNIQUE: One view of the chest was acquired. COMPARISON: [facility], CR, XR CHEST 1VW (PORTABLE), 09/28/2016, 5:24. [facility], CR, XR CHEST 1VW (PORTABLE), 10/02/2016, 12:36. FINDINGS: Surgical changes and devices: There is an endotracheal tube with the tip 2.5 cm above mayda. A nasog astric tube is in the stomach. Lungs and pleura: There is a 11 cm lucency in the left mid to upper lung zone compatible with a large cavity, either in the pleural or the left lung, unchanged. There are bilateral airspace infiltrates , unchanged. Mediastinum: Mediastinal contours appear normal. Heart size is normal. Bones and chest wall: No suspicious bony lesions. Overlying soft tissues appear unremarkable. IMPRESSION: Stable chest radiograph with a large cavity in left hemithorax and bilateral airspace in filtrates. Dictated by: Dana Bird M.D. on 10/03/2016 at 8:41 Approved by: Dana Bird M.D. on 10/03/2016 at 8:41
--- NOTE | 2016-10-03 09:00 | PROG NOTE ---
[address] [address] PROGRESS NOTE PATIENT: ORLY GARCIA : 1965 MR#: [id number] ADMIT: 09/27/2016 JOB ID: [id number] PULMONARY CRITICAL CARE FOLLOW UP: DATE: 10/03/2016 PROBLEM: 1. Left lung abscess with Streptococcus anginosus. 2. Hypoxemic hypercarbic respiratory failure. 3. Uterine carcinoma, metastatic. 4. Past history of breast carcinoma. 5. Hepatic cirrhosis with portal hypertension. 6. Blood cultures positive for RSV and Coronavirus. SUBJECTIVE: None. The patient had difficulty with increasing shortness of breath, required intubation. Currently on mechanical ventilation. OBJECTIVE: Temperature 37.5, with T-max being 38.7, pulse 97-105, respiratory rate 28, with ventilator set at 28, blood pressure 114/64, O2 sat on FiO2 of 90%, PEEP of 10 is 99%. General appearance: Sedated but a bit agitated, with some movement. Does not seem particularly purposeful. Eyes: Pupils about 4 mm and reactive to light. Nose and throat could not be examined. Chest: Good breath sounds on the right with coarse crackles throughout both lung nelson. Diminished breath sounds on the left, especially at the left lateral lung base, with a tidal volume of 300, peak inspiratory pressure 36, plateau 35, PEEP is set at 10, measured at 10. Heart: Somewhat distant tones. Heart tones seem normal. Abdomen is soft. A few bowel tones noted. Extremities: Trace pretibial edema. Chest x-ray pending. Post intubation film yesterday showed bilateral patchy areas of increased density, more so on the right than the left. An 11 cm cavitary lesion in the periphery on the left. LABORATORY DATA: Shows a white count of 5300, with moderate neutrophilia. No left shift. Hemoglobin 8.8, slowly decreasing. Platelet count slowly decreasing, currently 61,000 from a peak of 252,000, six days ago. After a significant decrease in the first 24 hours, it has been a slowly progressive drop. Sodium 143, potassium 3.9, chloride 102, CO2 is 30, BUN 20, creatinine 0.38, glucose 178. Lactic acid last evening was 2.6. Calcium 8.5. Phosphorus low normal at 2.5. Magnesium low at 1.5, currently being repleted. Total bilirubin 0.7. Transaminases normal. Alkaline phosphatase normal. Total protein 4.5, with albumin 1.9. Fungal antibodies less than 31 pg/mL. Galactomannan 0.07, with upper limits of normal being 0.49. ASSESSMENT: 1. Streptococcus anginosus lung abscess. Rather large, measuring almost 11 cm. The literature suggests that surgery would be the best approach, though the patient is not a surgical candidate. That would conjure up a slow course with long-term antibiotics. 2. Hypoxemic hypercarbic respiratory failure. Certainly multifactorial. Has infiltrates on the right which could represent metastatic carcinoma as well as infection. Have grown out Streptococcus mitis in the blood with Coronavirus and respiratory syncytial virus in nasopharyngeal swab by PCR. Currently on broad-spectrum antibiotics, including meropenem. Acute hypoxemic hypercarbic respiratory failure. Doing reasonably well. Very poor compliance with peak inspiratory pressure of 36 with tidal volume of 300, PEEP of 10. No evidence for auto PEEP. Will check with respiratory about her delivered tidal volume on the mL/kg basis. May need arterial line, though possibly could get by with oximetry and capnography. 3. Situation somewhat dire. Will have to see how we do with her respiratory status and revisit the situation with regard to mechanical ventilation in the next few days, depending on progress or lack thereof, or deterioration. 4. Hypomagnesemia, being repleted. 5. Hypophosphatemia, will replete. 6. Malnutrition. The patient is receiving TPN at the moment. Will continue that formulation. PLAN: 1. Continue current regimen. 2. Magnesium repletion. 3. Phosphorus repletion. 4. Continue TPN. 5. Re-evaluate analgesia and sedation. TIME SPENT: Time spent so far in critical care, 40 minutes.
[2016-10-03] MEDS: Senna Leaf Extract 528 mg/15 mL Syrup PO SCH ×2 (09:47→20:24)
--- NOTE | 2016-10-03 10:02 | NUR ---
NUTRITION FOLLOW-UP: ASSESS: 51 YO F admitted to CCU with acute hypoxic respiratory failure, intubated yesterday. Pt with left lung abscess; respiratory coronavirus; viral pneumonia; streptococcal bacteremia. Oncology unable to offer additional palliative chemotherapy at this time. The patient is not a candidate for a lobectomy due to her debilitated status. TPN initiated 09/30, phos/K+ WNL, Mg low. PMHx, Breast cancer, stage IV uterine cancer with mets status post palliative chemotherapy, cirrhosis, breast ca, T2DM. LABS: Reviewed. Cr 0.38, Glu 178, Mg 1.5, Lactic acid 2.6, Alb 1.9, Phos/K+ WNL MEDS:Reviewed. Insulin, Fentanyl, Reglan, Propofol ~12 ml/hr providing 317 kcal/day. GI: No BM noted. SKIN: Pawan 14. WT: 83.0 kg, BMI 34.6 kg/m2. Admit weight: 75.8 kg, BMI 31.6 kg/m2 DIET: Heart healthy/consistent carbohydrate and NPO ordered. TPN: 160 g dextrose, 80 g amino acid, 30 g lipid, providing 1164 kcal, 80 g protein; meeting 70% calorie, 100% of protein needs. ESTIMATED NEEDS: (CANCER, BMI): Calories: 2092-7866 kcal/day (22-25 kcal/kg BW) Protein: 75-90 g/day (1.0-1.2 g/kg BW) Fluid: ~1895 ml/day (25 cc/kg BW) NUTRITION DIAGNOSIS: 1) Decreased/inadequate PO intake related to chronic disease as evidence by reported decreased appetite and n/v due to chemo and chronic disease - PERSISTS. 2) Increased nutrient needs related to advanced cancer - PERSISTS. NUTRITION INTERVENTION: 1) Continue current TPN as ordered, replete Mg before advancing. Once electrolytes within normal limits recommend advancing TPN to Goal macronutrient rate: 240 g dextrose, 115 g amino acids, 50 g lipids (which will provide 1776 kcal, 115 g protein and meet 100% nutrient needs). Pt at risk for refeeding syndrome. 2) Recommend transition to enteral feeding now that pt is intubated rather than on BiPAP. Recommend TF of Jevity 1.5 starting at 10 ml/hr, once tolerance established advance 10 ml q 6 hr to goal rate of 55 ml/hr. At goal TF will provide 1815 kcal, 77 g protein; meeting 100% calorie/protein needs. 3) RD previously spoke with about ways to increase kcal/pro intake with each bite. Encouraged eating smaller more frequent meals and provided high kcal/pro recipe book. Pt does not like Ensure or Glucerna 4) Pt is not appropriate for DM education. Pt's stated that they are already aware of diet but at this point the pt is just trying to eat and not worry so much about following the DM diet. MONITOR/EVALUATE: TPN advance/tolerance, Poss. transition to TF?, NPO/Vent status, labs, wt, GI, POC, nutrition status. Follow per high nutrition risk guidelines.
[2016-10-03] MEDS: 0.9% Sodium Chloride 1,000 ML IV SCH ×3 (10:13→22:59)
[2016-10-03] MEDS: Pantoprazole Inj 80 MG in 0.9% Sodium Chloride 80 ML IVPUSH SCH ×2 (10:13→21:48)
--- NOTE | 2016-10-03 10:19 | PROG NOTE ---
[address] [address] PROGRESS NOTE PATIENT: ORLY GARCIA : 1965 MR#: [id number] ADMIT: 09/27/2016 JOB ID: [id number] DATE: 10/03/2016. REASON FOR FOLLOWUP: Massive lung abscess in the setting of advanced uterine cancer. INTERVAL HISTORY: Overnight, the patient has worsened considerably. When I saw the patient yesterday she was just barely managing on a high-flow BiPAP. She has subsequently failed and was intubated yesterday. She has required high levels of inspired oxygen throughout the night and this morning is on 80% FiO2 with 10 of PEEP. She is sedated and essentially unresponsive though she occasionally spontaneously moves her arms. This case was discussed with the patient's , bedside nurse, and the ICU team in detail. PHYSICAL EXAMINATION: Reveals an afebrile woman temperature 37.5, pulse 104, blood pressure 112/70, respiratory rate in the mid 20s. She is currently saturating 99% on 80% FiO2 and 10 of PEEP. The patient's eyes without conjunctival abnormality. The oral endotracheal tube and orogastric tube are in good position. The port is present in the chest wall as previous without tenderness. The chest tube that was present last week has been removed. Lungs with decreased breath sounds especially on the left. Some rales and rhonchi are heard bilaterally especially on the left. Cardiac tones without new murmur. Abdomen essentially benign. No ascites noted. No skin rash noted. DIAGNOSTIC STUDIES: Labs include white count 5300, hematocrit 28, platelet count 61,000 and dropping. Creatinine 0.38. LFTs are normal. Procalcitonin 8.5. Fungitell and galactomannan are negative. Micro: The admission blood grew Strep from 2/4 bottles. Yesterday, I was told by the lab this was Strep anginosus group, but today the lab reports it is actually Strep midas group, which is exquisitely sensitive to penicillin. No additional bacterial cultures have been positive since admission. A respiratory PCR was positive for both coronavirus and respiratory syncytial virus. MRSA swabs of the nose have been negative. Imaging has continued to show of course the massive 11 cm cavitary lesion in the left mid lung field. Bilateral patchy infiltrates are also noted worse on the right than the left. IMPRESSION: This is a difficult and worsening situation of a woman with underlying metastatic uterine malignancy who has recently been receiving chemotherapy for that who presented with a massive left-sided cavitary lung lesion which we believe to be a thick-walled lung abscess. Yesterday the preliminary report from the laboratory was this was Streptococcus anginosus in her blood and I thought that explained the massive cavity as this is an organism which classically causes such problems, but today we learned that this is actually Streptococcus Midas which is much less interesting, suggests possibly a transient bacteremia of no significance or perhaps that some oral viridans type Streptococcus were involved the lung abscess which would not be surprising. The finding of Streptococcus Midas however does not explain the complete microbiology of what is likely a very complex lung abscess. The role of respiratory syncytial virus remains unclear here. We had obtained oral ribavirin to give to the patient, but before she was intubated she was too weak and short of breath to swallow and then now we are unable to give it down the nasogastric tube so we are exploring formulations that might be feasible for an intubated patient such as this. Treatment for methicillin resistant Staphylococcus aureus has been stopped earlier as we have no positive cultures for methicillin resistant Staphylococcus aureus. Likewise we have stopped coverage with antifungal agents as we have no evidence for Aspergillus and our pulmonary consultants felt that was unlikely especially in view of the negative galactomannan and fungitell. RECOMMENDATIONS: 1. Will continue with meropenem. 2. Sputum Gram stain and culture will be ordered through the endotracheal tube. 3. Restarting MRSA therapy will be considered, though I am not certain at this point, that we have much evidence in that direction, but certainly if you have a positive sputum that would change our minds. 4. Restarting antifungal therapy will be discussed at ICU rounds. If we were to restart, we would probably use voriconazole again or the new agent Cresemba. This case was discussed in great detail with the ICU team.
--- NOTE | 2016-10-03 10:47 | PCM.PHAPRO ---
Progress Date of Service: Oct 03, 2016 TPN TPN per Pharmacy: PARENTERAL NUTRITION ORDERS 4 - Standard Hang Time: 2100 Substrates Total kcal: 864 AMINO ACIDS 80 g DEXTROSE 160 g Total Volume (mL): 1800 LIPIDS 0 g Sterile Water for Injection QS mL To Infuse Over (hrs): 24 Total Volume 1800 mL At at a rate of (mL/hr): 75 Additives Sodium Chloride 50 mEq "typical" daily requirements Sodium Acetate 10 mEq Sodium 50-120mEq Potassium Chloride 60 mEq Potassium 60-120mEq Potassium Phosphate 50 mEq Phosphate 20-40mEq Calcium Gluconate mEq Magnesium 8-32mEq Magnesium Sulfate 24 mEq Calcium 9-22mEq Acetate* 80-120mEq Chloride* 80-120mEq Regular Insulin 45 units *Depending on acid-base status Famotidine mg Multivitamins 1 std dose Insulin Regimen Trace Elements 1 std dose none Thiamine mg Regular Low Intensity Subcut Folic Acid mg Regular Medium Intensity Subcut Ascorbic Acid mg Regular High Intensity Subcut Regular Insulin Infusion Other: Magazine Grinder Loader Recommendations: No advancement in nutrition today Lipids removed from TPN as patient is on propofol 25 ml/hr Acetate reduced from 20->10 meq as patient with CO2 elevation Magnesium Sulfate increased from 16 meq ->24 meq as magnesium was low today, 4 GM magnesium replaced this AM Potassium phos increased from 40 meq->50 meq due to marginally low phos (2.5), potassium phos 40 meq replaced this AM Insulin increased from 30->45 units as patient is currently on an insulin drip at 7.5 mL/hr Thank You, Shireen Junior, Pharm D. Shireen Junior Oct 03, 2016 10:47
--- NOTE | 2016-10-03 14:20 | NUR ---
regulatory administratormanagement retail intern note: I met with patient's . Patient was intubated and unable to speak. Terry, appeared to be a little down, but stated "emotionally I'm doing fine". Terry stated he didn't know what to do if something happened. they didn't plan for this. I asked Terry, if he would like to talk with [facility] [employer] and he said if he had time. [facility] [employer] notified. Offered our advertising project manager services for , but he said he is not ready to talk with them. Hopefully we have her on the right treatment and we should see her turn around. Terry, said "Yes". Will continue to follow and address any needs that may arise.
[2016-10-03] MEDS: fentaNYL 2,500 mCg/250 mL 2,500 MCG in IV Premix 1 EACH IV PRN (16:44)
[2016-10-03] MEDS: Chlorhexidine 0.12% 15 mL Oral Solution MT SCH ×2 (16:44→20:24)
--- NOTE | 2016-10-03 19:28 | NUR ---
Respiratory/sedation/cardiac PRVC continued with 60% fi02 and peep of 10. Occasionally, pt will desaturate down to upper 80s when agitated, recovers to mid 90s once comfortable. Scant creamy secretions with ET suction. Riding ventilator, RR rate trending [address] per cardiac monitor technician, HR 110s. Febrile, 38.5. OG to LIWS, small amount of blood noted in tubing around noon, currently clear green/bile output. No other s/s of bleeding. Stauffer to DD, 800cc out this shift. Insulin gtt continued. Will continue to monitor.
[2016-10-03] MEDS: Total Parenteral Nutrition 1 BAG IV SCH (21:35)
[2016-10-03] MEDS: Norepinephrine 8,000 mCg/250 mL D5W Premix IV SCH (21:35)
[2016-10-04] VITALS (23 sets, daily range): BP systolic 83–154; BP diastolic 45–80; PULSE 88–133; RESP 28–47; O2SAT 90–99
[2016-10-04] MEDS: Chlorhexidine 0.12% 15 mL Oral Solution MT SCH ×7 (01:37→23:55)
[2016-10-04] MEDS: Meropenem Inj 2,000 MG in 0.9% Sodium Chloride 100 ML IV SCH ×4 (01:37→23:55)
[2016-10-04] MEDS: Propofol Inj 1,000,000 MCG in IV Premix 1 EACH IV SCH ×5 (02:16→19:43)
[2016-10-04] MEDS: 0.9% Sodium Chloride 1,000 ML IV SCH ×3 (05:30→19:43)
[2016-10-04 06:17] LABS: BASOPHILS % (AUTO) 0.2 % (0-3); EOSINOPHILS % (AUTO) 1.3 % (0-5); MONOCYTES % (AUTO) 10.5 % (4-12); Mean Corpuscular Hemoglobin 25.4 pg (27.0-35.0); Mean Corpuscular Volume 83.8 fL (81-100); NEUTROPHILS % (AUTO) 78.6 % (40-74); Platelet Count 55 bil/L (150-400)
--- NOTE | 2016-10-04 06:38 | NUR ---
Sedation/BP/Temp Difficult time controlling BP/Sedation ratio. Attempted to have pt on minimal sedation to prevent hypotension. However, pt anxious and fidgety on minimal sedation and will overbreathe vent with RR in 50s. SpO2 will then drop to high 80s and it is difficult to sedate pt at this point without oversedation. BP stable when pt stimulated (during bed bath) or when awake and pulling at lines. Hypotensive when asleep. Finally started Levophed to manage BP so pt can be comfortable while on vent. Max temp last night was 38.6, but this was right after pt was overbreathing vent for some time. Unsure if related to overbreathing/overworking or temp. IV Tylenol given. Lukewarm bedbath given and turned fan on for pt with minimal covers. Temp currently stable. Overall care clustered for limited interruption and stimulation. Care ongoing
[2016-10-04 07:09] LABS: Magnesium 2.1 mg/dL (1.6-2.6); Phosphorus 3.7 mg/dL (2.5-4.9)
[2016-10-04] MEDS ORDERED: Albumin 25% 50 GM in IV Premix 1 EACH IV ONE (07:55)
[2016-10-04] MEDS ORDERED: 0.9% Sodium Chloride 500 ML IV ONE (07:55)
[2016-10-04] MEDS ORDERED: 0.9% Sodium Chloride 250 ML IV SCH (08:30)
[2016-10-04] MEDS: Morphine ER 15 mg (MS Contin) Tablet PO SCH ×2 (08:30→20:30)
--- NOTE | 2016-10-04 08:32 | PROG NOTE ---
[address] [address] PROGRESS NOTE PATIENT: ORLY GARCIA : 1965 MR#: [id number] ADMIT: 09/27/2016 JOB ID: [id number] DATE: 10/04/2016 INFECTIOUS DISEASE FOLLOW UP NOTE: REASON FOR FOLLOW UP: The massive lung abscess in a patient with metastatic uterine malignancy as well as cirrhosis. INTERVAL HISTORY: Overnight, the patient has remained critically ill in the ICU. She is heavily sedated so no history is available from her, though I did discuss the case at the bedside with the ICU nurse as well as the ICU attending. Overnight, the patient has been maintained on 80% FiO2. She continues to have scant respiratory secretions which are not purulent. Because of the need for increasing levels of sedation, the patient has developed hypotension now requiring moderate doses of norepinephrine to support her blood pressure. Urine output has diminished to barely acceptable levels. PHYSICAL EXAMINATION: Includes temperature spikes during the night to 38.9. She is now afebrile at 37, pulse 110, blood pressure 99/51 on 0.05 mcg of norepinephrine. Saturating 94%-97% on 80% FiO2. The patient's eyes are without conjunctivitis. Oral endotracheal tube, orogastric tube are present was scant secretions out of the oral endotracheal tube. Right chest port is nontender and being used. A left upper extremity port is also in good position without inflammation and is being used. Lungs are notable for decreased breath sounds diffusely on the left with some rales at the right base. Cardiac tones tachycardic without new murmur. Abdomen soft and nontender without change. Stauffer catheter is present. Lower extremities without cellulitis or edema. LABORATORIES: Include white count 5200, platelet count 55,000. Creatinine 0.39. LFTs are normal. Procalcitonin was 8.5, for the last two days. A repeat is pending today. Fungitell and galactomannan negative from September 28. Micro includes 2/4 bottles that grew strep mitis on admission. Also on admission a respiratory viral panel was positive for uribe virus and RSV. Urine cultures have been negative. Follow up blood cultures negative. Follow up sputum has polys but absolutely no organisms and is culture negative and pneumococcal and Legionella antigens are negative. Most recent chest x-ray yesterday just shows a large cavitary lesion in the left lung as well as some infiltrates at the right base. IMPRESSION: This patient remains critically ill in the intensive care unit on the ventilator and now with hypotension which is likely though not definitely due to her sedatives. We have evidence of a huge and rapidly evolving left-sided lung cavity which we believe to be a lung abscess. The organism causing the abscess is unknown as all we know for certain is strep mitis is involved as that was isolated from 2/4 initial blood cultures. It is likely there are also anaerobes present. Our sputum and blood cultures have not been otherwise helpful. The patient also was infected with respiratory syncytial virus and uribe virus. We are attempting to treat the RSV with ribavirin given down the orogastric tube and we are treating the lung abscess with meropenem. MRSA and antifungal therapy have been stopped as we have no evidence for either of these organisms. RECOMMENDATIONS: 1. Will continue with meropenem as our sole agent. 2. We await the additional sputum Gram stains, cultures and blood cultures. 3. Will consider repeating the galactomannan and Fungitell on a weekly basis as the patient remains at high risk for invasive fungal infection but there is no evidence for that at this point. 4. This case discussed in great detail with the ICU team and will follow closely with you.
--- NOTE | 2016-10-04 09:52 | ABG ---
DateTimeAnalyzed 09:47:00 -_ pH ____7.361 - pCO2 ___48.3__ -mmHg pO2 ___40.2__ -mmHg HCO3- ___26.7__ -mmol/L ABE ____1.5__ -mmol/L tHb ____8.4__ -g/dL O2Hb ___68.9__ -% COHb ____1.5__ -% MetHb ____0.8__ -% sO2 ___70.5__ -% FIO2 ___80.0__ -% PRVC 300 - PEEP ___10.0__ -cmH2O Set_RR ___28.0__ -b/min Vt __310.0__ -L Drawn By jmw - Date/Time Notified____ 09:51:00 -_ Spontaneous_RR ___34.0__ -b/min Oxygen Device 1 VENTILATOR - Notified By JMW - Notified Whom DR KENDREGEN - B 749 -mmHg tO2 ____8.2__ -Vol% OrderingPhysicianInitials bak - Chavo test N/A -
[2016-10-04] MEDS: 0.9% Sodium Chloride 250 ML IV SCH ×4 (10:10→11:57)
--- NOTE | 2016-10-04 10:57 | DRSVH ---
PROCEDURE: X-RAY CHEST ONE VIEW, PORTABLE ([id number]) INDICATIONS: intubated; lung abscess TECHNIQUE: One view of the chest was acquired. COMPARISON: [facility], CT, CT CHEST WO CON, 09/27/2016, 23:51. [facility], CR, XR CHEST 1VW (PORTABLE), 10/03/2016, 3:55. FINDINGS: Surgical changes and devices: Endotracheal tube in normal position, nasogastric tube positioning exte nds below the imaging margin at least in the gastric body. Port-A-Cath from right sided approach tegan ears to cross the midline and likely is transiting from the right brachiocephalic vein into the left brachiocephalic vein by this appearance. Lungs and pleura: No pleural effusions or pneumothorax. Lungs are abnormal with a large air-filled ovoid structure again noted at the left lung, and this has been previously present. There has been a mild interval worsening of diffuse alveolar opacification, which could represent cardiogenic pulmona ry edema but diffuse pneumonia also could explain that appearance. Mediastinum: Mediastinal contours appear normal. Heart size is normal. Bones and chest wall: No suspicious bony lesions. Overlying soft tissues appear unremarkable. IMPRESSION: Mild interval worsening of the diffuse alveolar opacification pattern, stable appearance of a large air-filled cavity within the left midlung laterally. Lines and tubes appear in normal pos ition except for the right subclavian central line that appears to be transiting from the right brach ycephalic vein across the midline into the left brachiocephalic vein the course of the catheter at it s tip. This has been previously present. Dictated by: Francisco Jorge M.D. on 10/04/2016 at 10:55 Approved by: Francisco Jorge M.D. on 10/04/2016 at 10:55
--- NOTE | 2016-10-04 11:18 | PCM.PNMED ---
Subjective Date of Service Oct 04, 2016 Subjective Overnight: Patient became hypotensive, and appeared uncomfortable, and overbreathing ventilator. She was receiving minimal sedation in order to preserve BP. Levophed was initiated. Also developed fever, T38.9. Today: Continued to remain hypotensive. NS 500mL bolus provided with improvements in both BP and O2 sats. Levophed remained at 0.05. present at bedside. Labs: Hb 7.4. Plt 55, albu 1.7, Mg 2.1 ROS unable to be obtained secondary to intubation and sedation; patient appeared comfortable at time of evaluation Exam Vital Signs Vital Sign - Last Date Time Temp Pulse Resp B/P Pulse Ox O2 Delivery O2 Flow Rate FiO2 10/04/16 07:59 Ventilator 10/04/16 07:59 105 10/04/16 07:59 37.0 34 102/54 97 80 10/01/16 12:18 30 Intake and Output 10/03/16 10/03/16 10/04/16 Cumulative From/Thru 15:00 23:00 07:00 09/27/16 16:52 - 10/04/16 06:37 Intake Total 3077 ml 44428 ml Output Total 900 ml 55280 ml Balance 2177 ml 7878 ml Intake Oral 400 ml IV Total 2394 ml 15807 ml TPN/PPN 683 ml 4216 ml Packed Cells 364 ml Output Urine Total 800 ml 02336 ml Gastric Drainage Total 100 ml 250 ml Chest Tube Drainage Total 55 ml # Bowel Movements 0 Exam General: Intubated and sedated; no apparent stress HENT: Atraumatic; sclera anicteric; mucus membranes moist; ETT in place Cardiac: Regular rate and rhythm; no murmurs appreciated Respiratory: Coarse sounds bilateral all nelson Abdomen: Soft, nondistended Extremities: Diffuse edema noted secondary to fluid retention Pulses: Bilateral dorsalis pedis difficult to palpate; radial bilateral difficult to palpate Skin: Warm and dry; Cap refill < 2 s Neuro: Unable to obtain secondary to sedation Psych: Unable to obtain secondary to sedation Lab and Diagnostics Result Diagram: 10/04/16 0555 10/04/16 0555 Assessment & Plan PULMONARY/CRITICAL CARE PROGRESS NOTE: Patient is a 51 year old female with a history of stage IV uterine cancer with 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 She presented to [facility] on 1/3/17 from Urgent Care with approx. 1 week history of productive cough and increasing confusion. CT of the chest taken 09/27 notable for increased size of left lung mass now appearing as a cavitary lesion with the presence of an air fluid level. Pulmonology consulted for increasing O2 needs, ventilator management, and further evaluation of lung abscess and appropriate courses of therapy. - Hospital day 8 Acute hypoxemic hypercarbic respiratory failure, ongoing - Intubated 10/02: day 3 - Continue ventilatory support - Not appropriate for extubation Severe sepsis, acute, present on admission. Ongoing - On admit: P117, R28, WBC 15.1; LA 6.3 - Likely secondary to large lung abscess, noted below - Treat underlying cause - 500ml bolus NS given 10/04; stabilized - Levophed at 0.05 - VBG Left lung abscess with air fluid levels - CT 09/27 revealed large thick walled cavity with air-fluid level measuring 9.4cm x 6.8cm x 11.6cm - Abx: Meropenem, start date 09/28 - CXR 10/04: Completed, and pending - Plan for IR to place drain 10/05; will need to confirm time - Pending INR, plt Thrombocytopenia, acute, not present on admission - On admit: Plt 252 - Hep PF4 Ab: 0.088; not positive within diagnostic range - SCDs - One unit of platelets to be transfused 10/04 - FU plt check one hour after blood transfusion with CBC Acute anemia, present on admission - Likely secondary to chemotherapy effects, and current sepsis - On admit: Hb 9.9 - Transfuse 1U pRBC 10/04 - Check CBC one hour post transfusion Strep bacteremia - BCx 09/27: Strep mitis; sensitivities charted - Antibiotics as above Right lung PNA, acute, present on admission - Likely secondary to coronavirus, RSV; also consideration of cancer metastases - Ribavirin unable to placed through OGT - Supportive therapies only at this time FEN - Tube feeds to initiate after transfusions - Albumin infusion 50g - GI: PPI - DVT: SCDs (decreasing Hb and plt) Other conditions, chronic Stage IV endometrial undifferentiated carcinoma. Patient currently FULL CODE Total time with case: 90 minutes. This includes discussions with , ID, and IR. VTE Mechanical Devices: Intermittant Pneumatic CD Resuscitation Status: CPR: Attempt Resuscitation Attending Statement The patient was seen and examined together with Dr. Dewey on 10/04/2016 and I agree with the history, exam and plan as outlined in the note above. Aleida Dewey DO Oct 04, 2016 11:18 Elvin Bautista MD Oct 26, 2016 17:26
[2016-10-04 11:26] LABS: INR 1.12 ratio
--- NOTE | 2016-10-04 11:47 | NUR ---
NUTRITION FOLLOW-UP: ASSESS: 51 YO F admitted to CCU with acute hypoxic respiratory failure, intubated yesterday. Pt with left lung abscess; respiratory coronavirus; viral pneumonia; streptococcal bacteremia. Oncology unable to offer additional palliative chemotherapy at this time. The patient is not a candidate for a lobectomy due to her debilitated status. TPN initiated 09/30 due to pt being on BIPAP. Pt was intubated 10/02. Pt is to be transitioned to TF today now that she is intubated. Pharmacy and RN aware of switch. PMHx, Breast cancer, stage IV uterine cancer with mets status post palliative chemotherapy, cirrhosis, breast ca, T2DM. LABS: Reviewed. Technical Product Manager .39, Glu 166, Ca 7.8, Alb 1.7 MEDS: Reviewed. Insulin, Fentanyl, senna, Colace, Propofol at 19.9ml/hr providing 525 kcal/day. GI: No BM noted. SKIN: Pawan 12 WT: 89.3 kg, BMI 37.2 kg/m2. Admit weight: 75.8 kg, IBW: 47.7kg DIET: NPO TPN: 160 g dextrose, 80 g amino acid, 30 g lipid, providing 1164 kcal, 80 g protein; meeting 70% calorie, 100% of protein needs.- to stop today, TF to start ESTIMATED NEEDS: (CANCER, BMI, VENT) Calories: 1785-1965kcal/day (20-22 kcal/kg BW) Protein: 75-95 g/day (1.5-2.0g/kg IBW) Fluid: ~1895 ml/day (25 cc/kg BW- admit wt) NUTRITION DIAGNOSIS: 1) Decreased/inadequate PO intake related to chronic disease as evidence by reported decreased appetite and n/v due to chemo and chronic disease - PERSISTS. 2) Increased nutrient needs related to chronic disease as evidence by pt with stage IV uterine ca w/mets--PERSISTS NUTRITION INTERVENTION: 1) Recommend transition to enteral feeding now that pt is intubated rather than on BiPAP. Recommend start TF of Vital 1.5 @10ml/hr and if tolerated advance by 10ml q 6 hrs until reach goal rate of 45ml/hr to provide 1485kcal ( 2010kcal w/propofol) and 67g/day (100% kcal and 75% pro). 2) Recommend addition of 1 packet of prosource BID to better meet protein needs once pt is at goal rate for TF. 3) Adjust rate based on propofol 4) RD previously spoke with about ways to increase kcal/pro intake with each bite. Encouraged eating smaller more frequent meals and provided high kcal/pro recipe book. Pt does not like Ensure or Glucerna 5) Pt is not appropriate for DM education. Pt's stated that they are already aware of diet but at this point the pt is just trying to eat and not worry so much about following the DM diet. MONITOR/EVALUATE: TPN stop, TF start, NPO/Vent status, labs, wt, GI, POC, nutrition status. Follow per high nutrition risk guidelines.
[2016-10-04] MEDS: fentaNYL 2,500 mCg/250 mL 2,500 MCG in IV Premix 1 EACH IV PRN (12:18)
[2016-10-04] MEDS: Senna Leaf Extract 528 mg/15 mL Syrup PO SCH ×2 (12:42→20:30)
[2016-10-04] MEDS ORDERED: LORazepam Inj 100 MG in 0.9% Sodium Chloride 50 ML IV PRN (15:20)
[2016-10-04] MEDS ORDERED: LORazepam 100 mg/100 mL Drip IV PRN ×2 (15:20)
[2016-10-04] MEDS ORDERED: Acetaminophen IV 1,000 MG in IV Premix 1 EACH IV PRN (16:40)
--- NOTE | 2016-10-04 17:48 | PCM.PNMED ---
Subjective Date of Service Oct 04, 2016 Subjective Patient is intubated and sedated. ROS subjective not obtainable Exam Vital Signs Vital Sign - Last Date Time Temp Pulse Resp B/P Pulse Ox O2 Delivery O2 Flow Rate FiO2 10/04/16 16:25 38.6 133 40 146/75 10/04/16 15:47 95 80 10/04/16 12:00 Mechanical Ventilator 10/01/16 12:18 30 Intake and Output 10/03/16 10/03/16 10/04/16 Cumulative From/Thru 15:00 23:00 07:00 09/27/16 16:52 - 10/04/16 06:37 Intake Total 3077 ml 30392 ml Output Total 900 ml 68084 ml Balance 2177 ml 7878 ml Intake Oral 400 ml IV Total 2394 ml 18790 ml TPN/PPN 683 ml 4216 ml Packed Cells 364 ml Output Urine Total 800 ml 30810 ml Gastric Drainage Total 100 ml 250 ml Chest Tube Drainage Total 55 ml # Bowel Movements 0 Exam Exam this afternoon after addition of Ativan. The patient is very calm, sedated and appears to be comfortable. She has grossly anasarca began pale. Neck is supple. Lungs are mostly clear with some scattered rhonchi. Minimal wheezing. Heart is regular without murmur Abdomen is somewhat distended but soft. Extremities are edematous. Good pedal pulses. 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 She presented to [facility] on 09/27/16 from Urgent Care with approx. 1 week history of productive cough and increasing confusion. CT of the chest notable for increased size of left lung mass now appearing as a cavitary lesion with the presence of an air fluid level - suspicious for empyema. Chest tube placed 09/28/16 in an attempt to drain the area; has been unsuccessful this far. Pulmonology consulted for increasing O2 needs and further evaluation of suspected empyema. Hospital day #3. 1. Acute hypoxic respiratory failure. POA. Patient was intubated yesterday. She remained stable with resolved but still requires a significant FiO2. She also has a significant PEEP pressures indicative of stiff lung. 2. Left lung abscess and right lung pneumonia.. POA. Her fungal testing is negative, have stopped voriconazole and low nasal and. She is on Ribavarin for RSV but is having difficulty taking this orally, we will discuss trying to get the elixir which is nonformulary.. Will continue her antibiotics (meropenem) for her strep infection. Her prognosis is very poor. Discussed the options. She continues to be septic with spiking fevers and clinical deterioration such as sepsis sepsis which is progressive and requiring intermittent pressors. At this point to we have discussed extensively the idea of a percutaneous drainage of this abscess for both diagnostic and possibly therapeutic or persistent feel that this is likely to provide more benefit than harm. This is scheduled to happen tomorrow morning. He is aware of this plan and agrees to this. 3. Severe Sepsis. POA. He has decompensated over the last 24-36 hours. She remains tenuous with a lactate at 2.5 overnight we will repeat this morning. She remains clinically tenuous. 4. Strep bacteremia. 2 out of 4 cultures positive for strep mitis. Her current antibiotic therapy does cover this as well as many other potential pathogens in her abscess. 5. Anemia, stable. - Etiology unknown with no obvious source of bleeding. Hemolysis workup ordered and pending. - Received 2 units PRBC's on 09/28/16. - No evidence of clinical bleeding. We will continue to follow carefully. She did drop her hematocrit and will receive 1 additional unit of packed red blood cells today. 6. Stage IV endometrial undifferentiated carcinoma. - Oncology is involved. This point we are continuing to treat active reversible problems. 7. Nutrition. -The patient requires increased caloric support but is unable to have antral feedings were increased by mouth intake because of BiPAP support that has been required all of the time. We will follow her clinical status carefully. Continue TPN, we will transition her to antral feedings in the next day if her clinical condition remained stable. 8. Hyperglycemia. We will continue to titrate N insulin drip which was started yesterday. 9. Hypernatremia, improved 10. Thrombocytopenia. No Lovenox and Monday. We will follow. She is currently at about 90. 11. Some blood in her O G-tube aspirate. She is started on a Protonix drip yesterday we will follow closely clinically as well as following her hematocrit. Pain Evaluation: Adequate Pain Control VTE Mechanical Devices: Intermittant Pneumatic CD Resuscitation Status: CPR: Attempt Resuscitation Time spent 30 minutes Chavo Lacey MD Oct 04, 2016 17:48
[2016-10-04 18:01] LABS: BASOPHILS % (AUTO) 0.2 % (0-3); NEUTROPHILS % (AUTO) 84.4 % (40-74)
[2016-10-04 18:09] LABS: EOSINOPHILS % (AUTO) 1.2 % (0-5); MONOCYTES % (AUTO) 9.2 % (4-12); Mean Corpuscular Hemoglobin 26.1 pg (27.0-35.0); Platelet Count 74 bil/L (150-400)
--- NOTE | 2016-10-04 18:17 | NUR ---
Ventilation... Pt has required increasing sedation throughout the shift, due to tachycardia and RR in the 40-50's when coughing or awakened. Pt will open eyes slightly to command. Is slow to recover after receiving increases of sedation. MD updated and Ativan gtt added. This appears to be working better to keep her calm. Has received 1 unit platelets and 1 unit RBC. Followup labs are pending. Was able to wean off of Norepinephrine gtt around 1530. Is more tachycardic this afternoon. Temp noted to be 38.6. MD updated and IV tylenol ordered. Family at bedside and updated on status and plan of care tomorrow.
[2016-10-04] MEDS: Insulin Human REGular Inj 100 UNIT in 0.9% Sodium Chloride-Pha MIX 100 ML IV SCH (19:43)
--- NOTE | 2016-10-04 19:59 | PROG NOTE ---
[address] [address] PROGRESS NOTE PATIENT: ORLY GARCIA : 1965 MR#: [id number] ADMIT: 09/27/2016 JOB ID: [id number] DATE: 10/04/2016 SUBJECTIVE: On Monday, the patient was intubated and has been kept sedated on the ventilator. OBJECTIVE: She has developed new fever since 48 hours ago. She has required vasopressors and remains tachycardic and tachypneic. She is fully sedated and on a ventilator. O2 saturation is in mid 90s on 80% FiO2. LABS: She has thrombocytopenia which she usually does. Albumin is severely low at 1.7. Procalcitonin has been trending down. Renal function remains normal. Fungal serology was negative. Chest x-ray today reports worsening of diffuse alveolar opacifications and stable appearance of large left-sided lung abscess. IMPRESSION AND RECOMMENDATIONS: This patient is tentatively scheduled for percutaneous drainage of her lung abscess tomorrow. I have a strong reservations about this procedure. I am afraid that even if this would establish drainage of her abscess, this patient is left with many competing causes of terminal illness including her highly aggressive metastatic uterine cancer, bilateral pneumonia, liver cirrhosis, etc. I explained this to her and I discussed it with Dr. Bautista as well. We all agree that at this point, given that her clinical condition has deteriorated despite our conservative treatment so far, it is in her best interest to switch efforts to comfort care. Dr. Bautista will cancel the procedure tomorrow morning and will contact Palliative Services. I will return tomorrow for followup with her .
[2016-10-04] MEDS: Pantoprazole 4 mg/mL 10 mL Inj IVPUSH SCH (21:01)
[2016-10-04] MEDS: Dextrose 5% 0.45% NaCl 1,000 ML IV PRN (21:02)
[2016-10-04] MEDS: Norepinephrine 8,000 mCg/250 mL D5W Premix IV SCH (22:55)
[2016-10-05] VITALS (8 sets, daily range): BP systolic 88–111; BP diastolic 55–69; PULSE 85–109; RESP 28–30; O2SAT 94–96
[2016-10-05] MEDS: fentaNYL 2,500 mCg/250 mL 2,500 MCG in IV Premix 1 EACH IV PRN ×2 (04:00→13:18)
[2016-10-05] MEDS: Chlorhexidine 0.12% 15 mL Oral Solution MT SCH ×3 (04:36→12:11)
[2016-10-05] MEDS: 0.9% Sodium Chloride 1,000 ML IV SCH ×3 (04:37→12:10)
--- NOTE | 2016-10-05 04:45 | NUR ---
Vent, sedation, plan of care Continues ventilated with sats mid 90s on 80% fio2. 1999 After repositioning to right side pt became tachypneic with respiratory rate up to 50 and desat to 83%. Returned to supine, ativan 2mg bolus given with very gradual improvement in sats back to 90s over the next hour. Propofol and Fentanyl unchanged. Levophed gtt restarted at 0.08mcg/kg/min for MAP 50s. IV Tylenol given once available from pharmacy for temp 38.6. Dr Lomas talked with at 1900 and reports plan to hold off on IR drainage in the morning. Dr Bautista called and is in agreement. 1 additional unit RBCs given per conversation with Dr Lomas with follow up Hgb 10. anticipating meeting with Palliative team this am.
[2016-10-05] MEDS: Propofol Inj 1,000,000 MCG in IV Premix 1 EACH IV SCH ×4 (05:38→11:17)
[2016-10-05] MEDS: Norepinephrine 8,000 mCg/250 mL D5W Premix IV SCH (05:38)
[2016-10-05 05:39] LABS: BASOPHILS % (AUTO) 0.1 % (0-3); EOSINOPHILS % (AUTO) 1.7 % (0-5); MONOCYTES % (AUTO) 8.2 % (4-12); Mean Corpuscular Hemoglobin 26.8 pg (27.0-35.0); Mean Corpuscular Volume 84.1 fL (81-100); NEUTROPHILS % (AUTO) 85.4 % (40-74); Platelet Count 100 bil/L (150-400)
[2016-10-05 06:37] LABS: Magnesium 1.9 mg/dL (1.6-2.6); Phosphorus 3.9 mg/dL (2.5-4.9)
[2016-10-05 06:45] LABS: INR 1.13 ratio
[2016-10-05] MEDS: Morphine ER 15 mg (MS Contin) Tablet PO SCH (07:58)
[2016-10-05] MEDS: Senna Leaf Extract 528 mg/15 mL Syrup PO SCH (07:59)
[2016-10-05] MEDS: Pantoprazole 4 mg/mL 10 mL Inj IVPUSH SCH (08:04)
[2016-10-05] MEDS ORDERED: Potassium Chloride 20 mEq/15 mL 15mL Oral Soln PO SCH (09:41)
[2016-10-05] MEDS: Meropenem Inj 2,000 MG in 0.9% Sodium Chloride 100 ML IV SCH (10:02)
[2016-10-05] MEDS: Dextrose 5% 0.45% NaCl 1,000 ML IV PRN (10:03)
[2016-10-05] MEDS: 0.9% Sodium Chloride 250 ML IV SCH ×2 (10:10)
[2016-10-05] MEDS ORDERED: RIBAVIRIN PO SCH (10:12)
--- NOTE | 2016-10-05 12:19 | PROG NOTE ---
[address] [address] PROGRESS NOTE PATIENT: ORLY GARCIA : 1965 MR#: [id number] ADMIT: 09/27/2016 JOB ID: [id number] DATE: 10/05/2016 PULMONARY CRITICAL CARE NOTE: PROBLEM: 1. 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 2. Blood culture positive for Streptococcus mitis, sensitive to penicillin. 3. Metastatic uterine carcinoma. 4. 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 5. Coronavirus and respiratory syncytial virus via respiratory panel PCR. SUBJECTIVE: None. OBJECTIVE: Temperature 36.4, pulse 85. Respiratory rate 28 with ventilator set at 28. Blood pressure 88/55. O2 sat on FiO2 of 80%, PEEP of 10 is 96%. I and O shows 7.9 liters in, 1.6 liters out. General appearance: Sedated on the ventilator. Chest: Fair breath sounds on the right with coarse crackles. Diminished breath sounds in the left upper lung field with essentially absent breath sounds in the left lateral lower lung field. LABORATORY DATA: Shows a white count of 13,500 with 85 polymorphonuclears, 3 lymphocytes, 8 monocytes. Hemoglobin 9.9 after 3-unit transfusion of packed RBCs. Platelet count 100,000 after platelet transfusion. Sodium 142, potassium 4.7, chloride 109, CO2 is 23, BUN 16, creatinine is 0.33, calcium 8.3, phosphorus 3.9 normal, magnesium normal at 1.9. I spoke with Dr. Borden of the oncology service last evening. He felt that given her highly aggressive metastatic uterine carcinoma and that further interventions, specifically percutaneous drainage of her left abscess, were not warranted due to the highly aggressive metastatic uterine carcinoma and inability to continue with chemotherapy treatment for that underlying condition. Therefore, he felt that in that her clinical condition has deteriorated despite conservative treatment it is in her best interest to switch efforts to comfort care. Given that input, the procedure was canceled. This was subsequently discussed with Infectious Disease. ASSESSMENT: 1. Highly aggressive uterine carcinoma. 2. Large left lung abscess. 3. Given the competing interest with the infection making continued chemotherapy being contraindicated and the need to withhold chemotherapy in this highly aggressive carcinoma, it was felt that the Palliative Care service should be involved. PLAN: 1. Consult Palliative Care Service regarding future management issues. 2. Cancel percutaneous drainage of lung abscess. TIME SPENT: Speaking with Oncology, Infectious Disease, Radiology and the patient's , 30 minutes.
--- NOTE | 2016-10-05 12:21 | NUR ---
Palliative Care Palliative Care received request by Dr Bautista 10/05/16 to become involved again as patient is moving towards compassionate extubation. Original order received by Dr Bautista 09/28/16 for goals of care. Palliative Care signed off on 09/29/16 as goals were clear at that time. Guillermo Singhwilton () [phone] Palliative Care to follow. Cira Lee
--- NOTE | 2016-10-05 14:00 | NUR ---
Pt transitioning to comfort care Pt's family spoke with palliative care this morning and decision has been made to extubate pt this afternoon and go to comfort care. Family are waiting for other family and friends to arrive to have a chance to see pt. VS have been deteriorating this am, as far as BP has dropped to high 70's sys and levophed is currently at 0.09mcgs. Pt appears comfortable and is sedated on fentanyl, propofol and ativan. Bhupendra was in to visit with family and offer support.
--- NOTE | 2016-10-05 15:36 | NUR ---
spiritual care: staff referral brief check in, family grieving. Pt's requested home/deposition info. corporate executive available as needed
--- NOTE | 2016-10-05 15:37 | NUR ---
Pt at 1515hrs Pt was extubated at approx 1513hrs and at 1515hrs. Pt looked very comfortable and at ease, without any discomfort. She javed'd and was asystolic at 1515hrs. Pt's family was at the bedside and are supportive of each other.
--- NOTE | 2016-10-05 16:00 | PCM.DC.MED ---
Discharge Summary Date of Service Oct 05, 2016 Dates of Hospitalization Date of Hospital Admission Sep 27, 2016 at 19:50 Date of Discharge: Oct 05, 2016 Providers: Admitting Physician: Erasmo Mahajan MD Primary Care Physician: Rochelle Skelton Attending Physician: Erasmo Mahajan MD Diagnosis at Time of Discharge Diagnosis at Time of Discharge 1. Expiration 2. Institution of comfort care on the day of expiration 3. Acute hypoxic respiratory failure, POA 4. Right-sided lung pneumonia and left-sided lung abscess, POA 5. Sepsis 6. Metabolic encephalopathy 7. Metastatic uterine cancer Consultations Infectious disease, Dr. Mixon Pulmonary, Dr. Summers Palliative care medicine, Dr. Weiss Gen. surgery, Dr. Davenport Oncology, Dr. Borden Procedures XRay, CTs & MRIs Multiple chest x-rays revealing a left Abscess with air-fluid level and a right-sided progressive infiltrates. CT of the chest indicating the same, large cavitary lesion with an air-fluid level. Invasive Procedures Left chest tube thoracostomy on day of admit. 4 possible empyema, improved and no empyema. This continued the next day. No complications. Other Diagnostics 2 blood cultures are several were positive for strep mitis Brief History Pt is a 51 year old female currently being treated with chemotherapy for lung cancer who was sent to the ED from with concerns for an altered mental status and shortness of breath that started earlier today. Her reports that she has been having a productive cough for the past week as well as some rhinorrhea, which has been gradually worsening since its onset. Yesterday, she became excessively weak, confused and began having full body spasms. A pleural effusion was diagnosed while she was at the facility, which prompted her ED visit. She has become increasingly confused, and had one bout of emesis. Pt's denies any fevers, and reports that she did not receive a flu shot this season. PALLIATIVE CARE NOTE reason for consult is goals of care Consulting MD-Dr. Bautista, Dr. Marie Oncologist: Dr. Borden 51 yo female patient of Dr. 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 She had a mass in her lung about 1 month ago noted on chest CT and presumed metastatic that was causing significant chest pain. She had been on [facility] ER at 15 mg BID but this was increased to 30 mg BID at discharge due to ongoing pain. This dose was too sedating and she eventually decreased her dose back to 15 mg with adequate control, using oxycodone for BTP. She developed a profound cough that was productive of foul tasting sputum as well as progressively worsening dyspnea, altered mental status and profound weakness. Her brought her in. On evaluation the SINCERE mass and what appeared to be pleural studding in early August had progressed to a large thick walled cavitating mass. Attempt at draining an associated empyema noted no fluid. She is now on high flow O2 and BIPAP for respiratory support. Due to presumed progression of disease she was started on a new chemo in early aug and is due for her next dose this monday. Hospital Course Patient is a 51 year old female with a history of stage IV uterine cancer with 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 She presented to [facility] on 09/27/16 from Urgent Care with approx. 1 week history of productive cough and increasing confusion. CT of the chest notable for increased size of left lung mass now appearing as a cavitary lesion with the presence of an air fluid level - suspicious for empyema. Chest tube placed 09/28/16 in an attempt to drain the area; has been unsuccessful this far. Pulmonology consulted for increasing O2 needs and further evaluation of suspected empyema. Hospital day #3. 1. Acute hypoxic respiratory failure. POA. Patient was intubated yesterday. She remained stable with resolved but still requires a significant FiO2. She also has a significant PEEP pressures indicative of stiff lung. 2. Left lung abscess and right lung pneumonia.. POA. Her fungal testing is negative, have stopped voriconazole and low nasal and. She is on Ribavarin for RSV but is having difficulty taking this orally, we will discuss trying to get the elixir which is nonformulary.. Will continue her antibiotics (meropenem) for her strep infection. Her prognosis is very poor. Discussed the options. She continues to be septic with spiking fevers and clinical deterioration such as sepsis sepsis which is progressive and requiring intermittent pressors. At this point to we have discussed extensively the idea of a percutaneous drainage of this abscess for both diagnostic and possibly therapeutic or persistent feel that this is likely to provide more benefit than harm. This is scheduled to happen tomorrow morning. He is aware of this plan and agrees to this. 3. Severe Sepsis. POA. He has decompensated over the last 24-36 hours. She remains tenuous with a lactate at 2.5 overnight we will repeat this morning. She remains clinically tenuous. 4. Strep bacteremia. 2 out of 4 cultures positive for strep mitis. Her current antibiotic therapy does cover this as well as many other potential pathogens in her abscess. 5. Anemia, stable. - Etiology unknown with no obvious source of bleeding. Hemolysis workup ordered and pending. - Received 2 units PRBC's on 09/28/16. - No evidence of clinical bleeding. We will continue to follow carefully. She did drop her hematocrit and will receive 1 additional unit of packed red blood cells today. 6. Stage IV endometrial undifferentiated carcinoma. - Oncology is involved. This point we are continuing to treat active reversible problems. 7. Nutrition. -The patient requires increased caloric support but is unable to have antral feedings were increased by mouth intake because of BiPAP support that has been required all of the time. We will follow her clinical status carefully. Continue TPN, we will transition her to antral feedings in the next day if her clinical condition remained stable. 8. Hyperglycemia. We will continue to titrate N insulin drip which was started yesterday. 9. Hypernatremia, improved 10. Thrombocytopenia. No Lovenox and Monday. We will follow. She is currently at about 90. 11. Some blood in her O G-tube aspirate. She is started on a Protonix drip yesterday we will follow closely clinically as well as following her hematocrit. This unfortunate patient was admitted with acute dyspnea. She was found to have an empyema versus a cavitary lesion in her left lung. She is admitted to the CCU supported with BiPAP and chest tube was placed in the left side. The pleural space was explored and there was no empyema. There is no operative from the chest tube and this was discontinued short time later. CT scan indicated a large cavitary lesion in the left lung with an air-fluid level. She had copious amounts of malodorous material that she would cough up. She became progressively septic with hypotension requiring both fluid resuscitation as well as vasopressors intermittently. 2 out of 4 blood cultures positive for strep mitis. She was treated empirically for the possibility of a fungal and/ or lung abscess with antibacterials and antifungals. Final studies came back negative and her fungal medication was stopped. She developed an acute anemia without obvious source required 2 units of packed red blood cells. She was unable to eat in a meaningful way with support initially with TPN. The patient continued to clinically deteriorate and required an insulin drip for hyperglycemia. There prior to discharge the possibility of a percutaneous drain for diagnostics and possible therapeutic measures was considered. Her oncologist met with the patient's the night before expiration and the 2 ultimately agreed to pursue comfort care. On the day of expiration Dr. Weiss met with the patient's . Ultimately he was placed on a comfort care and end-of-life order set with morphine drip and she was extubated. She a short time later Exam Vital Signs (Last) Date Time Temp Pulse Resp B/P Pulse Ox O2 Delivery O2 Flow Rate FiO2 10/05/16 12:00 93 100/62 96 80 10/05/16 11:11 Ventilator 10/05/16 11:11 36.4 28 10/01/16 12:18 30 Exam Patient was in respiratory distress encephalopathic prior to expiration. She is tachypneic. Lungs were normal for scattered wheezing and rhonchi. Heart was regular without murmur. Extremities were edematous. Abdomen is distended and edematous. Test 09/27/16 17:15 09/27/16 17:28 09/28/16 05:00 09/28/16 08:00 Metamyelocytes % 0% (0-0) Troponin T < 0.010ug/L (0.0-0.011) Pro-B-Type Natriuretic Peptide 1534pg/mL (0-249) Activated Partial Thromboplast Time 35.5sec (22.8-33.0) D-Dimer 3.7mg/L (<0.50) Reticulocyte Count,Calculated 2.6% (0.6-2.6) Haptoglobin 438mg/dL (34-200) Iron Level 20ug/dL (35-150) Total Iron Binding Capacity 139ug/dL (250-450) Percent Iron Saturation 14%sat (15-50) Unsaturated Iron Binding 118.7ug/dL Lactate Dehydrogenase 138U/L (100-190) Vitamin B12 Level 1088pg/mL (211-946) Folate 4.5ng/mL (>3.0) Urine Color Yellow (YELLOW) Urine Appearance Hazy (CLEAR,HAZY) Urine pH 5.5 (5.0-8.0) Urine Specific [place] 1.015 (1.003-1.035) Urine Protein Negativemg/dL (NEG,TRACE) Urine Glucose (UA) 250mg/dL (NEGATIVE) Urine Ketones Negativemg/dL (NEGATIVE) Urine Occult Blood Trace (NEGATIVE) Urine Nitrite Negative (NEGATIVE) Urine Bilirubin Negative (NEGATIVE) Urine Urobilinogen Normalmg/dL (NORMAL) Urine Leukocyte Esterase Negative (NEGATIVE) Urine RBC 0-2/hpf (0-2) Urine WBC 0-5/hpf (0-5) Urine Epithelial Cells Occasional/hpf (NONE-MOD) Urine Crystals None seen (NONE SEEN) Urine Bacteria Few/hpf (NONE-FEW) Urine Hyaline Casts None/lpf (NONE) Urine Granular Casts None seen (NONE SEEN) Urine Waxy Casts None seen (NONE SEEN) Urine Red Blood Cell Casts None seen (NONE SEEN) Urine White Blood Cell Casts None seen (NONE SEEN) Urine Mucus None seen (None Seen) Urine Trichomonas None seen (NONE SEEN) Urine Yeast None (NONE SEEN) Urinalysis Comment None Urine Culture Reflexed Not indicated Urine Legionella pneumophilia Ag Negative (Negative) Test 09/28/16 10:15 09/28/16 12:20 09/28/16 12:25 09/28/16 16:48 Myelocytes % 2% (0-0) Hold Purple Top Tube Received (Received) Hold Blue Top Tube Received (Received) Hold Longs Top Tube Received (Received) Hold Urine Received (Received) Fungal Antibodies <31pg/mL (.) Aspergillus galactomannan Antigen 0.07Index (0.00-0.49) Hold [place]ia Top Tube Received (Received) Test 10/01/16 04:25 10/01/16 09:20 10/03/16 08:37 10/04/16 05:55 Band Neutrophils % 5% (1-5) Heparin-PF4 Ab Optical Density 0.088OD (<0.4) Heparin-PF4 Antibody Interpretation Not indicated Lactic Acid Level 2.0mmol/L (0.4-2.0) Total Bilirubin 0.5mg/dL (0.0-1.2) Aspartate Amino Transf (AST/SGOT) 17U/L (0-50) Alanine Aminotransferase (ALT/SGPT) 5U/L (0-32) Alkaline Phosphatase 57U/L (25-150) Total Protein 4.2g/dL (6.4-8.4) Albumin 1.7g/dL (3.4-5.0) Triglycerides Level 125mg/dL (0-149) Procalcitonin 7.13ng/mL (See Comment) Test 10/05/16 05:20 White Blood Count 13.5th/mm3 (3.8-10.1) Red Blood Count 3.70mil/mm3 (3.90-5.20) Hemoglobin 9.9g/dL (12.0-15.6) Hematocrit 31.1% (35.0-46.0) Mean Corpuscular Volume 84.1fL (81-100) Mean Corpuscular Hemoglobin 26.8pg (27.0-35.0) Mean Corpuscular Hemoglobin Concent 31.8% (32.0-37.0) Red Cell Distribution Width 17.3% (12.3-15.4) Platelet Count 100bil/L (150-400) Neutrophils (%) (Auto) 85.4% (40-74) Lymphocytes (%) (Auto) 3.9% (14-46) Monocytes (%) (Auto) 8.2% (4-12) Eosinophils (%) (Auto) 1.7% (0-5) Basophils (%) (Auto) 0.1% (0-3) Prothrombin Time 12.1sec (8.1-12.5) Prothromb Time International Ratio 1.13ratio Sodium Level 142mEq/L (134-144) Potassium Level 4.7mEq/L (3.5-5.2) Chloride Level 109mEq/L (97-108) Carbon Dioxide Level 23mmol/L (18-29) Blood Urea Nitrogen 16mg/dL (6-24) Creatinine 0.33mg/dL (0.57-1.00) Estimat Glomerular Filtration Rate 300mL/min (>59) Glucose Level 127mg/dL (60-99) Calcium Level 8.3mg/dL (8.5-10.1) Phosphorus Level 3.9mg/dL (2.5-4.9) Magnesium Level 1.9mg/dL (1.6-2.6) Discharge Medications Discharge Medications Cholecalciferol (Vitamin D3) (Vitamin D3) 10,000 Unit Capsule 5,000 UNIT PO WEEKLY (Reported) Every Monday Furosemide (Lasix) 20 Mg Tablet 20 MG PO DAILY (Reported) Gabapentin (Gabapentin) 300 Mg Capsule 300 MG PO TID (Reported) 1 AM 1 NOON 2 PM Glipizide (Glipizide) 5 Mg Tablet 10 MG PO BID (Reported) Magnesium Oxide (Mag-Oxide) 400 Mg Tablet 400 MG PO TID Prescribed by: KRYS OJEDA MD Metformin (Metformin) 500 Mg Tablet 500 MG PO TID (Reported) Metoprolol Tartrate (Metoprolol Tartrate) 25 Mg Tablet 50 MG PO BID (Reported) Morphine Sulfate ER (Morphine Sulfate ER) 15 Mg Tablet 15 MG PO BID (Reported) Spironolactone (Spironolactone) 25 Mg Tablet 25 MG PO DAILY (Reported) Venlafaxine ER (Effexor XR) 37.5 Mg Cap.er.24h 37.5 MG PO DAILY (Reported) As needed oxyCODONE-Acetaminophen 5-325 mg (oxyCODONE-Acetaminophen 5-325 mg) 1 Each Tablet 1 TAB PO Q4H PRN PRN For Pain Prescribed by: KRYS OJEDA MD Followup Plan Disposition: Time spent 40 minutes Chavo Lacey MD Oct 05, 2016 16:00
--- NOTE | 2016-10-05 16:55 | PCM.PALLBR ---
Palliative Care Recommendation Summary of palliative recommendations: -Symptom management (Pain/other) See brief note. Compassionate extubation with appropriate medication support. -Family/emotional support--excellent Problems: End of Life Preferences Withdrawal of care- comfort Goals of Care comfort Resuscitation Status Resuscitation Status: DNR/DNI:Do Not Resuscitate/Intubate POLST Updates/Changes POLST Discussed with: Spouse/Other . Advanced Care Planning Address: Comfort care Pain: None Total time [ 40 min] minutes; >50% face to face with patient and/or family, providing counselling regarding plans and recommendations, and in care coordination with his/her medical teams. coordination of care, discussion with family and medication management for w/d of life support I also spent an additional [ ] minutes counseling for advanced care planning with the patient/the patients family/the surrogate decision maker. copies to: Michaela Borden MD Palliative Brief Note Date of Service Oct 05, 2016 . Palliative service asked to reviewed deteriorating status with and family and review question of withdrawal of care. Reviewed case with Dr. Bautista. Severe repir failure with large lung abscess, now on pressors along with antibiotics but condition worsening not improving. Dr. Borden in last evening and explained to Don- her that at this point cancer increasing and not able to proceed with chemo anytime in near future. is able to relay all of this with good understanding He states he has seen the decline and was prepared for this with this last admission. He requests that she be comfortable in the process. Family-mother and sister in to say goodbyes Patient medicated with increase in lorazepam and fentanyl infusions. Bolus meds ordered for comfort. house registry rn notified and supported family. Life support withdrawn and only comfort meds continued. Code status changed to comfort Patient . Pamela Weiss MD Oct 05, 2016 16:55
[2016-10-05] MEDS ORDERED: Phenylephrine 10,000 mCg/mL Inj ONE (18:15)
[2016-10-05] MEDS ORDERED: Propofol 10,000 mCg/mL 20 mL Inj ONE (18:15)
[2016-10-05] MEDS ORDERED: Succinylcholine Chloride 20 mg/mL 5 mL Inj ONE (18:15)
--- NOTE | 2016-10-05 19:19 | NUR ---
states he will call nursing sup 10/06/16 with home choice.
--- NOTE | 2016-10-05 19:19 | NUR ---
Restraints discontinued at 1500hrs prior to extubation.
== END 2016-10-05 18:16 | disposition expired | DRG 871 ==
LOC: SED 16:47 → OSC 19:50 → CCU 09-28 05:27
PROVIDERS: ADMIT Hospitalist; ATTEND Hospitalist
PROC: 4A033R1 Measurement of Arterial Saturation, Peripheral, Percutaneous Approach (ICD-10-PCS; principal; 2016-09-27)
PROC: 0B9P30Z Drainage of Left Pleura with Drainage Device, Percutaneous Approach (ICD-10-PCS; 2016-09-28)
PROC: 30233N1 Transfusion of Nonautologous Red Blood Cells into Peripheral Vein, Percutaneous Approach (ICD-10-PCS; 2016-09-28)
PROC: 5A09458 Assistance with Respiratory Ventilation, 24-96 Consecutive Hours, Intermittent Positive Airway Pressure (ICD-10-PCS; 2016-09-28)
PROC: 0BPQX0Z Removal of Drainage Device from Pleura, External Approach (ICD-10-PCS; 2016-09-29)
PROC: 3E0436Z Introduction of Nutritional Substance into Central Vein, Percutaneous Approach (ICD-10-PCS; 2016-09-30)
PROC: 0BH17EZ Insertion of Endotracheal Airway into Trachea, Via Natural or Artificial Opening (ICD-10-PCS; 2016-10-02)
PROC: 5A1945Z Respiratory Ventilation, 24-96 Consecutive Hours (ICD-10-PCS; 2016-10-02)
PROC: 30233N1 Transfusion of Nonautologous Red Blood Cells into Peripheral Vein, Percutaneous Approach (ICD-10-PCS; 2016-10-04)
PROC: 30233R1 Transfusion of Nonautologous Platelets into Peripheral Vein, Percutaneous Approach (ICD-10-PCS; 2016-10-04)
DX: A40.8 Other streptococcal sepsis (principal); G93.41 Metabolic encephalopathy; J85.1 Abscess of lung with pneumonia; J96.01 Acute respiratory failure with hypoxia; J12.1 Respiratory syncytial virus pneumonia; J96.02 Acute respiratory failure with hypercapnia; N17.9 Acute kidney failure, unspecified; E87.1 Hypo-osmolality and hyponatremia; E87.4 Mixed disorder of acid-base balance; C78.7 Secondary malignant neoplasm of liver and intrahepatic bile duct; E46 Unspecified protein-calorie malnutrition; E87.0 Hyperosmolality and hypernatremia; K76.6 Portal hypertension; B97.29 Other coronavirus as the cause of diseases classified elsewhere; Z85.3 Personal history of malignant neoplasm of breast; Z90.710 Acquired absence of both cervix and uterus; E11.65 Type 2 diabetes mellitus with hyperglycemia; Y95 Nosocomial condition; I95.9 Hypotension, unspecified; D63.8 Anemia in other chronic diseases classified elsewhere; I10 Essential (primary) hypertension; K74.69 Other cirrhosis of liver; R65.20 Severe sepsis without septic shock; C54.1 Malignant neoplasm of endometrium; E83.42 Hypomagnesemia; D69.6 Thrombocytopenia, unspecified; D64.81 Anemia due to antineoplastic chemotherapy; Z51.5 Encounter for palliative care